=== PATIENT | female | born 1935 | race Caucasian/White ===

== ENCOUNTER → 2018-05-02 12:02 | Outpatient (CLI) | payer MEDICARE, OTHER, SELFPAY ==
[2018-05-02 12:31] LABS: International Normalized Ratio 1.6; Prothrombin Time (Protime)PT. 19.1 SECONDS (11.7-14.9)
--- OUTSIDE RECORDS SUMMARY | 2018-06-18 15:37 | XMS RPT_ITS ---
:1935 Author Organization OHIP Care Team Providers Name Role Phone ZBIGNIEW CALDERON Attending Unavailable KVNG, ZBIGNIEW E Referring Unavailable KOHLI, LARRY L Referring Unavailable KOHLI, LARRY L Referring Unavailable KOHLI, LARRY L Referring Unavailable CORNIELLO, GINGER L ([facility]) Referring Unavailable KOHLI, LARRY L Attending Unavailable KOHLI, LARRY L Referring Unavailable KOHLI, LARRY L Referring Unavailable KOHLI, LARRY L Referring Unavailable KOHLI, LARRY L Referring Unavailable KOHLI, LARRY L Referring Unavailable KOHLI, LARRY L Referring Unavailable KOHLI, LARRY L Referring Unavailable KOHLI, LARRY L Referring Unavailable KOHLI, LARRY L Referring Unavailable KOHLI, LARRY L Referring Unavailable KOHLI, LARRY L Referring Unavailable KVNG, ZBIGNIEW E Attending Unavailable KVNG, ZBIGNIEW E Referring Unavailable KVNG, ZBIGNIEW E Referring Unavailable KOHLI, LARRY L Referring Unavailable KOHLI, LARRY L Attending Unavailable KOHLI, LARRY L Referring Unavailable KOHLI, LARRY L Referring Unavailable KVNG, ZBIGNIEW Attending Unavailable KVNG, ZBIGNIEW Referring Unavailable KOHLI, LARRY L Primary Care Unavailable KVNG, ZBIGNIEW Attending Unavailable KVNG, ZBIGNIEW Referring Unavailable KOHLI, LARRY L Primary Care Unavailable Kohli, Larry Attending Unavailable Kohli, Larry Referring Unavailable PROBLEMS PROBLEMS DATE TYPE CONDITION / CODE ATTENDING STATUS SOURCE 05/03/2018 Unknown I48.91 - Unspecified Kohli, Active [place] atrial fibrillation [facility] / I48.91(ICD-10) Hospital Repository 05/02/2018 Active Other hyperlipidemia NA Active [facility] / E78.49(ICD-10) [facility] Main [place] Repository 05/02/2018 Active Hyperglycemia, NA Active [facility] unspecified / Clinic Main R73.9(ICD-10) [place] Repository 08/22/2017 Active Paroxysmal atrial KVNG, Active [place] fibrillation / [facility] Clinic Other I48.0(ICD-10) [place] Repository 08/22/2017 Admitting Unknown / KVNG, Active [facility] diagnosis UNK(Unknown) [facility] Repository 07/12/2017 Active Mixed hyperlipidemia NA Active [facility] / E78.2(ICD-10) [facility] [place] Rep[facility] 11/09/2016 Active Impaired fasting NA Active [facility] glucose / [facility] Main R73.01(ICD-10) [place] Repository 02/24/2014 Active Unspecified atrial NA Active [place] fibrillation / [facility] Main I48.91(ICD-10) [place] Repository PROCEDURES PROCEDURES No Procedure Records FoundRESULTS RESULTS PROGRESS Observed: 06/08/2018 Status: COMPLETED Source: [place] 5:05 PM [facility] RE[facility] HNO ID: [id number] Author: Larry Kohli Service: (none) Author Type: Physician Type: Progress Notes Filed: 06/08/2018 5:07 PM Note Text: CC Leatha Kern is a 82 year old female who presents to the office for 6 months follow up HPI: Paroxysmal atrial fibrillation, taking antiarryhtmic and beta elizabeth and other medications including Coumadin, tolerating well without concerns, seeing Dr. Calderon Concierge Receptionist regularly Hx of IFG, recently hba1c elevated, has been admitting to eating more carbohydrates and sugar recently with holiday, would like to try diet control, is asymptomatic Hemoglobin A1C Date Value Ref Range Status 05/02/2018 6.5 (H) 4.3 - 5.6 % Final Comment: [place] [employer] Association guidelines indicate that patients with HgbA1c in the range 5.7-6.4% are at increased risk for development of diabetes, and intervention by lifestyle modification may be beneficial. HgbA1c greater or equal to 6.5% is considered diagnostic of diabetes. 08/15/2017 6.4 (H) 4.3 - 5.6 % Final 12/14/2016 6.2 (H) 4.3 - 5.6 % Final Comment: [place] Diabetes Association guidelines indicate that patients with HgbA1c in the range 5.7-6.4% are at increased risk for development of diabetes, and intervention by lifestyle modification may be beneficial. HgbA1c greater or equal to 6.5% is considered diagnostic of diabetes. PAST MEDICAL HISTORY Diagnosis Date - Disorder of bone and cartilage, unspecified 10/25 -1.1 LS, nl hip, no change from 2003 - External hemorrhoids without mention of complication - Family history of malignant neoplasm of gastrointestinal tract family history of colon cancer - Hypercholesterolemia - Internal hemorrhoids without mention of complication - Paroxysmal atrial fibrillation (HCC) Zbigniew Calderon MD. Warfarin. - Unspecified constipation PAST SURGICAL HISTORY Procedure Laterality Date - COLONOSCOP W/ OR W/O [facility] SPEC 2001 Colonoscopy - COLONOSCOP W/ OR W/O [facility] SPEC 04/27/16 Colonoscopy mac - EGD W/O OR W/BRUSH/WASH 04/27/16 EGD mac - PAST SURGICAL HISTORY OF 1985 lumbar laminectomy - REMOVAL OF TONSILS,<12 Y/O - REMV CATARACT EXTRACAP,INSERT LENS Mar 21 AND May 07, 3013 - SIGMOIDOSCOPY FLEX DIAG 08/09/06 - TOTAL ABDOM HYSTERECTOMY 1989 Hysterectomy, CRISTIN Dr. Fermin Conte Current Outpatient Prescriptions: warfarin (COUMADIN) 5 mg tablet Take 7.5 mg Tues and Thurs, 5 mg all other days flecainide (TAMBOCOR) 50 mg tablet Take 0.5 tablets by mouth twice daily. atorvastatin (LIPITOR) 20 mg tablet Take 1 tablet by mouth once daily. zolpidem (AMBIEN) 5 mg tablet Take 1 tablet by mouth daily at bedtime for 30 days. FOR SLEEP metoprolol tartrate, short acting, (LOPRESSOR) 25 mg tablet Take 0.5 tablets by mouth twice daily. nitroglycerin sublingual (NITROQUICK) 0.3 mg SL tablet Dissolve 1 tablet under the tongue every 5 minutes as needed. OTC PRODUCT Vitamin D 1000 unitis daily multivitamins w-minerals/lut(CENTRUM SILVER TAB) Take one(1) tablet daily. ascorbic acid(VITAMIN C 1,000 MG TAB) Take one(1) tablet daily. No current facility-administered medications for this visit. ALLERGIES Allergen Reactions - Iodine [Contrast Dy* Hives Social History Marital status: Spouse name: Henna.PKaylah Years of education: 13 Number of children: 4 Occupational History Occupation Employer Comment retired [employer] Social History Main Topics Smoking status: Never Smoker Smokeless tobacco: Never Used Comment: No smoking in childhood. Spouse non-smoker. Alcohol use: Yes Comment: 1 glass wine every 2 weeks Drug use: No Sexual activity: Yes control/protection: Surgical Comment: HYSTERECTOMY Social History Narrative 4 sons Lives in [place] Retired, family business Oldest son has met veronica TERRY, age 56, 2012 ROS: See HPI PE: BP 120/80 Pulse 60 Temp (Src) 98 (Right Tympanic) Resp 16 Wt 164 lb (74.4kg) Gen: AANDOX3, NAD, non-toxic appearing HEENT: PERRLA, EOMs intact b/l, nares without drainage, pharynx without erythema, exudate, lesions, or drainage. Uvula midline. Neck: No LAD, no thyromegaly, no meningismus. CV: RRR, no murmur Lungs: CTA b/l, no wheezing Skin: No rashes, lesions, or wounds on exposed skin. No edema, normal pulses ASSESSMENT/PLAN: 1. Dyslipidemia - ICD9: 272.4, ICD10: E78.5 (primary diagnosis) - suboptimal control - Continue current medication. - Encouraged following a low fat, low cholesterol diet. - Discussed the benefits of regular aerobic exercise and weight loss. - Check fasting lipid panel and ALT in 6 months. - COMP METABOLIC PANEL - LIPID PANEL BASIC - CBC 2. Chronic atrial fibrillation (HCC) - ICD9: 427.31, ICD10: I48.2 - rx refilled, INR in target range, f/u in office in 1 month as scheduled. - WARFARIN 5 MG TABLET 3. Controlled type 2 diabetes mellitus without complication, without long-term current use of insulin (HCC) - ICD9: 250.00, ICD10: E11.9 newly diagnosed - Encouraged regular aerobic exercise and weight loss - Follow up in 6 months, sooner should any other issues arise. - Discussed diabetic education issues of fdc diabetic complications, hyperglycemic symptoms, diet and importance of exercise with patient. - BP goal of <130/80 - LDL goal of <100 - HGB A1C Larry Kohli DO Return if no improvement. Follow up with Larry Kohli DO. To ER if develops chest pain, shortness of breath, Discussed risks, benefits, alternatives, and potential side effects of medications. Patient/Guardian expressed understanding and agreed with the plan. See patient instructions. Larry Kohli DO [address] [place] [address] PROGRESS Observed: 06/08/2018 Status: COMPLETED Source: [place] 4:25 PM [facility] REPOSITORY HNO ID: [id number] Author: Larry Kohli Service: (none) Author Type: Physician Type: Progress Notes Filed: 06/08/2018 4:46 PM Note Text: Agree with below Larry Kohli DO PROGRESS Observed: 06/08/2018 Status: COMPLETED Source: [place] 4:10 PM [facility] REPOSITORY HNO ID: [id number] Author: Pearl Verduzco RN Service: (none) Author Type: (none) Type: Progress Notes Filed: 06/08/2018 4:12 PM Note Text: patient had inr completed at [facility] patients inr is 2.3 (patients inr range is 2.0-3.0) patient is currently taking 7.5mg Tues,Thurs,Sat and 5mg all other days patients last dose change was on 02/26/18 due to a low normal level of 2.1 (dose at that time was 7.5mg Tues,Thurs and 5mg all there days) patient has had no changes in medication and no missed doses and no change in diet Advised patient to continue on the same dose(s) and that they would only be contacted regarding dosage and follow up instructions after review with provider, if a change is needed. Written instructions given and patient verbalized understanding. Presently scheduled in 5 weeks (07/16/18 - pt requested this date) for follow up INR. CNOV Observed: 06/08/2018 Status: COMPLETED Source: [place] 3:00 PM [facility] REPOSITORY Office Visit (FAMPWS) LEATHA KERN ([id number]) 1935 F Date Time Provider Department 06/08/18 3:00 PM SEUN LARRY Stark FAMPWS During your visit today, we recorded the following information about you: Temperature Pulse Respiration Blood pressure 98 degrees 60/minute 16/minute 120/80 Weight 74.4 kg Larry Kohli, DO 06/08/2018 3:49 PM Signed Transparent lab protein whey powder- from [facility], 100% organic grass fed, <1-[address] grams of sugar Other way for a shake- Protein powder scoop (as above) Chocolate almond milk (SILK brand) PB2 powder (by the peanut butter, in that aisle, dried peanuts) Larry Kohli, DO 06/08/2018 5:07 PM Signed CC Leatha Kern is a 82 year old female who presents to the office for 6 months follow up HPI: Paroxysmal atrial fibrillation, taking antiarryhtmic and beta elizabeth and other medications including Coumadin, tolerating well without concerns, seeing Dr. Calderon Concierge Receptionist regularly Hx of IFG, recently hba1c elevated, has been admitting to eating more carbohydrates and sugar recently with holiday, would like to try diet control, is asymptomatic Hemoglobin A1C Date Value Ref Range Status 05/02/2018 6.5 (H) 4.3 - 5.6 % Final Comment: [place] Diabetes [employer] guidelines indicate that patients with HgbA1c in the range 5.7-6.4% are at increased risk for development of diabetes, and intervention by lifestyle modification may be beneficial. HgbA1c greater or equal to 6.5% is considered diagnostic of diabetes. 08/15/2017 6.4 (H) 4.3 - 5.6 % Final 12/14/2016 6.2 (H) 4.3 - 5.6 % Final Comment: [place] Diabetes [employer] guidelines indicate that patients with HgbA1c in the range 5.7-6.4% are at increased risk for development of diabetes, and intervention by lifestyle modification may be beneficial. HgbA1c greater or equal to 6.5% is considered diagnostic of diabetes. PAST MEDICAL HISTORY Diagnosis Date - Disorder of bone and cartilage, unspecified 10/25 -1.1 LS, nl hip, no change from 2004 - External hemorrhoids without mention of complication - Family history of malignant neoplasm of gastrointestinal tract family history of colon cancer - Hypercholesterolemia - Internal hemorrhoids without mention of complication - Paroxysmal atrial fibrillation (HCC) Zbigniew Calderon MD. Warfarin. - Unspecified constipation PAST SURGICAL HISTORY Procedure Laterality Date - COLONOSCOP W/ OR W/O [facility] SPEC 2001 Colonoscopy - COLONOSCOP W/ OR W/O [facility] SPEC 04/27/16 Colonoscopy mac - EGD W/O OR W/BRUSH/WASH 04/27/16 EGD mac - PAST SURGICAL HISTORY OF 1985 lumbar laminectomy - REMOVAL OF TONSILS,<12 Y/O - REMV CATARACT EXTRACAP,INSERT LENS Mar 21 AND May 07, 3013 - SIGMOIDOSCOPY FLEX DIAG 08/09/06 - TOTAL ABDOM HYSTERECTOMY 1989 Hysterectomy, CRISTIN Dr. Fermin Conet Current Outpatient Prescriptions: warfarin (COUMADIN) 5 mg tablet Take 7.5 mg Tues and Thurs, 5 mg all other days flecainide (TAMBOCOR) 50 mg tablet Take 0.5 tablets by mouth twice daily. atorvastatin (LIPITOR) 20 mg tablet Take 1 tablet by mouth once daily. zolpidem (AMBIEN) 5 mg tablet Take 1 tablet by mouth daily at bedtime for 30 days. FOR SLEEP metoprolol tartrate, short acting, (LOPRESSOR) 25 mg tablet Take 0.5 tablets by mouth twice daily. nitroglycerin sublingual (NITROQUICK) 0.3 mg SL tablet Dissolve 1 tablet under the tongue every 5 minutes as needed. OTC PRODUCT Vitamin D 1000 unitis daily multivitamins w-minerals/lut(CENTRUM SILVER TAB) Take one(1) tablet daily. ascorbic acid(VITAMIN C 1,000 MG TAB) Take one(1) tablet daily. No current facility-administered medications for this visit. ALLERGIES Allergen Reactions - Iodine [Contrast Dy* Hives Social History Marital status: Spouse name: Padma Years of education: 13 Number of children: 4 Occupational History Occupation Employer Comment retired [employer] Social History Main Topics Smoking status: Never Smoker Smokeless tobacco: Never Used Comment: No smoking in childhood. Spouse non-smoker. Alcohol use: Yes Comment: 1 glass wine every 2 weeks Drug use: No Sexual activity: Yes control/protection: Surgical Comment: HYSTERECTOMY Social History Narrative 4 sons Lives in [facility] Retired, family business Oldest son has met veronica TERRY, age 56, 2012 ROS: See HPI PE: BP 120/80 Pulse 60 Temp (Src) 98 (Right Tympanic) Resp 16 Wt 164 lb (74.4kg) Gen: AANDOX3, NAD, non-toxic appearing HEENT: PERRLA, EOMs intact b/l, nares without drainage, pharynx without erythema, exudate, lesions, or drainage. Uvula midline. Neck: No LAD, no thyromegaly, no meningismus. CV: RRR, no murmur Lungs: CTA b/l, no wheezing Skin: No rashes, lesions, or wounds on exposed skin. No edema, normal pulses ASSESSMENT/PLAN: 1. Dyslipidemia - ICD9: 272.4, ICD10: E78.5 (primary diagnosis) - suboptimal control - Continue current medication. - Encouraged following a low fat, low cholesterol diet. - Discussed the benefits of regular aerobic exercise and weight loss. - Check fasting lipid panel and ALT in 6 months. - COMP METABOLIC PANEL - LIPID PANEL BASIC - CBC 2. Chronic atrial fibrillation (HCC) - ICD9: 427.31, ICD10: I48.2 - rx refilled, INR in target range, f/u in office in 1 month as scheduled. - WARFARIN 5 MG TABLET 3. Controlled type 2 diabetes mellitus without complication, without long-term current use of insulin (HCC) - ICD9: 250.00, ICD10: E11.9 newly diagnosed - Encouraged regular aerobic exercise and weight loss - Follow up in 6 months, sooner should any other issues arise. - Discussed diabetic education issues of fdc diabetic complications, hyperglycemic symptoms, diet and importance of exercise with patient. - BP goal of <130/80 - LDL goal of <100 - HGB A1C Larry Kohli DO Return if no improvement. Follow up with Larry Kohli DO. To ER if develops chest pain, shortness of breath, Discussed risks, benefits, alternatives, and potential side effects of medications. Patient/Guardian expressed understanding and agreed with the plan. See patient instructions. Larry Kohli DO [address] [place] [address] Referring Provider: LARRY KOHLI [[id number]] Allergies As of Date: 06/08/2018 Noted Allergy Reaction IODINE (CONTRAST DYE) 01/10/2011 4 - Hives Date Reviewed: 06/08/2018 Reviewed by: Anyi Lewis LPN - Fully Assessed Reason for Visit: Follow Up [171] Cmt: 6 months Primary Visit Diagnosis:Dyslipidemia [E78.5] Other Visit Diagnoses:Chronic atrial fibrillation (HCC) [I48.2] Controlled type 2 diabetes mellitus without complication, without long-term current use of insulin (HCC) [E11.9] Order(s):warfarin (COUMADIN) 5 mg tabletTake 7.5 mg Tues and Thurs, 5 mg all other daysDisp: 120 tabletRfl: 3 HGB A1C [LUCDD9B] Order #: [id number] FUTURE COMP METABOLIC PANEL [SQCMP] Order #: [id number] FUTURE LIPID PANEL BASIC [SQLIPB] Order #: [id number] FUTURE CBC [SQCBC] Order #: [id number] FUTURE INR (POC) [[id number]] Order #: [id number] #:[id number] Prescriptions as of 06/08/2018 Sig: WARFARIN 5 MG TABLET Take 7.5 mg Tues and Thurs, 5* FLECAINIDE 50 MG TABLET Take 0.5 tablets by mouth twi* ATORVASTATIN 20 MG TABLET Take 1 tablet by mouth once d* ZOLPIDEM 5 MG TABLET Take 1 tablet by mouth daily * METOPROLOL TARTRATE 25 MG TAB* Take 0.5 tablets by mouth twi* NITROGLYCERIN 0.3 MG SUBLINGU* Dissolve 1 tablet under the t* OTC PRODUCT Vitamin D 1000 unitis daily CENTRUM SILVER TABLET Take one(1) tablet daily. VITAMIN C 1,000 MG TABLET Take one(1) tablet daily. Problem List As Of Date 06/08/2018 Noted Resolved ADJUSTMENT DISORDER WITH DEPRESSED MOOD [F43.21]INVALID FOR* UNSPECIFIED CONSTIPATION [K59.00] INVALID FOR* INSOMNIA NOS [G47.00] INVALID FOR* Hyperlipemia [E78.5] INVALID FOR*07/12/2017 Atrial fibrillation [I48.91] INVALID FOR*02/24/2014 Atrial fibrillation (HCC) [I48.91] INVALID FOR* FHx: colon cancer [Z80.0] INVALID FOR*04/27/2016 Heme positive stool [R19.5] INVALID FOR*04/27/2016 Hyperlipidemia, mixed [E78.2] INVALID FOR* Overweight (BMI 25.0-29.9) [E66.3] INVALID FOR* Elevated fasting blood sugar [R73.01] INVALID FOR* Impaired fasting glucose [R73.01] INVALID FOR* Other insomnia [G47.09] INVALID FOR* Other instructions from your clinician: Transparent lab protein whey powder- from [facility], 100% organic grass fed, <1-2 grams of sugar Other way for a shake- Protein powder scoop (as above) Chocolate almond milk (SILK brand) PB2 powder (by the peanut butter, in that aisle, dried peanuts) Prescriptions ordered this encounter Disp Refills Start End WARFARIN 5 MG TABLET 120 * 3 06/08/2018 Class: Print RX Sig: Take 7.5 mg Tues and Thurs, 5 mg all other days Medications Discontinued During This Encounter warfarin (COUMADIN) 5 mg tablet 120 * 3 07/18/2017 06/08/2018 Sig: Take 5 mg on Mon/Wed and 7.5 mg all other days or as directed. Patient taking differently: Take 7.5 mg Tues and Thurs, 5 mg all other days Disc: Reason for discontinue is not on file. Encounter Status:Closed by LARRY KOHLI DO on 06/08/18 PROGRESS Observed: 05/09/2018 Status: COMPLETED Source: [place] 1:15 PM [facility] REPOSITORY HNO ID: [id number] Author: Larry Kohli Service: (none) Author Type: Physician Type: Progress Notes Filed: 05/09/2018 2:25 PM Note Text: Agree with below Larry Kohli DO PROGRESS Observed: 05/09/2018 Status: COMPLETED Source: [place] 11:20 AM [facility] REPOSITORY HNO ID: [id number] Author: Neena Juan RN Service: (none) Author Type: (none) Type: Progress Notes Filed: 05/09/2018 11:22 AM Note Text: Patient had INR completed at [facility] Patient's INR is 2.7 Patient is currently taking 7.5mg Tues,Thurs, Sat and 5mg all other days Patient's last dose change was 05/02/18 due to low INR at 1.6 Patient has had no medication and no change in diet. Advised patient to continue on same dose and they would only be contacted with different instructions after provider review. Written instructions were given to patient and patient verbalized understanding. Presently, patient has been scheduled for 06/08/18 for INR follow up per her request due to another appt with PCP that day. PROTHROMBIN TIME W/INR Collected: 05/02/2018 Status: F Source: [place] 8:33 AM [facility] [place] Order Comment: LABSPEC TYPE CODE TESTS RESULT OUT OF RANGE REFERENCE UNITS LAB L300.4150 11.7-14.9 SECONDS High PROTIME 19.1 LAB L300.4200 Normal INR 1.6 Performed By: #### L300.3900 #### [facility] [address] [place], [address] PROTIME Collected: 05/02/2018 Status: F Source: [place] 8:31 AM [facility] REPOSITORY TYPE CODE TESTS RESULT OUT OF REFERENCE UNITS RANGE LAB PSEC 9.7-13.0 sec Test PT sent to [facility]. Result Comment: Account Credited LAB INR 0.9-1.3 Test sent to PT INR [facility]. Result Comment: Account Credited BASIC METABOLIC PANL Collected: 05/02/2018 Status: F Source: [place] 8:31 AM [facility] REPOSITORY TYPE CODE TESTS RESULT OUT OF REFERENCE UNITS RANGE LAB GLU 74-99 mg/dL Glucose High 137 LAB BUN 7-21 mg/dL BUN 14 LAB CRET 0.58-0.96 mg/dL Creatinine 0.79 LAB NA 136-144 mmol/L Sodium 139 LAB K 3.7-5.1 mmol/L Potassium 4.0 LAB CL 97-105 mmol/L Chloride 104 LAB CO2 22-30 mmol/L CO2 29 LAB AGAP mmol/L Anion Gap 6 LAB CA 8.5-10.2 mg/dL Calcium, Total 9.6 LAB GFRAA eGFR- >60 Amer. LAB GFRNAA . eGFR-All Other Races >60 Result Comment: eGFR (Estimated GFR) Units of measure: mL/min/1.73 meters squared eGFR is derived from the reexpressed MDRD Study equation using the following parameters: serum creatinine, age, gender and race. The creatinine assay has been calibrated to be traceable to IDMS. An eGFR <60 mL/min/1.73m2 for >3 months is consistent with chronic kidney disease. Refer to KDOQI guidelines for clinical interpretation. In patients with unstable renal function, e.g. those with acute kidney injury, the eGFR may not accurately reflect actual GFR. LIPID PANEL, BASIC Collected: 05/02/2018 Status: F Source: [place] 8:30 AM [facility] [place] REPOSITORY TYPE CODE TESTS RESULT OUT OF REFERENCE UNITS RANGE LAB CHOL <200 mg/dL Cholesterol 155 Result Comment: <200 mg/dL, Desirable 200-239 mg/dL, Borderline high >239 mg/dL, High LAB TRIGLY <150 mg/dL Triglyceride 67 Result Comment: <150 mg/dL, Normal 150-199 mg/dL, Borderline high 200-499 mg/dL, High >499 mg/dL, Very high LAB HDL >39 mg/dL HDL-Cholesterol 77 Result Comment: 40-59 mg/dL, Acceptable >59 mg/dL, High: Negative risk factor for coronary heart disease <40 mg/dL, Low: Positive risk factor for coronary heart disease LAB LDL <100 mg/dL LDL-Cholesterol 65 Result Comment: <100 mg/dL, Optimal 100-129 mg/dL, Near optimal/above optimal 130-159 mg/dL, Borderline high 160-189 mg/dL, High >189 mg/dL, Very high Secondary prevention optimal LDL Cholesterol levels are recommended to be < 70 mg/dL LAB NONHDL <130 mg/dL Non HDL Cholesterol 78 Result Comment: <130 mg/dL, Optimal 130-159 mg/dL, Near optimal/above optimal 160-189 mg/dL, Borderline high 190-219 mg/dL, High >219 mg/dL, Very high Secondary prevention optimal non HDL Cholesterol levels are recommended to be < 100 mg/dL LAB FT hrs Fasting Time 12 LAB VLDL <30 mg/dL VLDL Cholesterol 13 LAB TCHDL <5.10 TC:HDL Ratio 2.01 LAB LDLHDL <2.54 LDL:HDL Ratio 0.84 Result Comment: Reference: 1. National Cholesterol Education Program ATP III Guideline At-A-Glance Quick Desk Reference: National Heart, Lung, and Blood [place]. National Institutes of Health. 2001: NIH Publication No. 01-3305. 2. An International Atherosclerosis Society position paper: global recommendations for the management of dyslipidemia: executive summary, Atherosclerosis. 2014: 232(2):410-413. Performed By: #### LIPB #### [facility] [employer] [address] [place], [place] [address] HEMOGLOBIN A1C Collected: 05/02/2018 Status: F Source: [place] 8:30 AM [facility] REPOSITORY TYPE CODE TESTS RESULT OUT OF REFERENCE UNITS RANGE LAB HGBA1C 4.3-5.6 % High Hemoglobin A1c 6.5 Result Comment: [place] Diabetes Association guidelines indicate that patients with HgbA1c in the range 5.7-6.4% are at increased risk for development of diabetes, and intervention by lifestyle modification may be beneficial. HgbA1c greater or equal to 6.5% is considered diagnostic of diabetes. LAB HBA0 mg/dL Est. Average Glucose 140 Result Comment: eAG: (Estimated average glucose) is a calculated value from HgbA1c and is district representative of the average blood glucose level in the last 2-3 month period. Performed By: #### HBA1C #### [facility] [employer] [employer] [address] [place], [place] [address] PROGRESS Observed: 04/24/2018 Status: COMPLETED Source: [place] 11:13 AM [facility] REPOSITORY HNO ID: [id number] Author: Zbigniew Calderon Service: (none) Author Type: Physician Type: Progress Notes Filed: 04/25/2018 8:41 AM Note Text: PERTINENT CARDIAC HISTORY PAF HL ILD TINSLEY ADHERENCE TO GUIDELINES TORIN-I or ARB for HF with prior LVEF<40 (NQF 0081) - N/A ASA or Plavix for ASHD (NQF 0067) - N/A Beta elizabeth for ASHD with prior MD or prior LVEF<40 (NQF 0070) - N/A Beta elizabeth for HF with prior LVEF<40 (NQF 0083) - N/A TORIN-I or ARB for ASHD with DM or prior LVEF<40 (NQF 0066) - N/A Statin therapy for ASHD or FHL or DM - met BMI documented and plan if >25 (NQF 0421) - lifestyle recommendation form Tobacco use screening and referral (NQF 0028) - lifestyle recommendation form CLINICAL IMPRESSION/PLAN: Leatha Kern is doing well. She is tolerating low-dose flecainide. I will give her a new prescription for 50 milligrams tablets and have her decrease dose to 25 milligrams twice daily. I've asked her to contact me after one to 2 weeks to let me know how she is doing. At that time we will decide whether to discontinue flecainide and go with just beta elizabeth. She will have basic profile and lipid profile for follow-up of drug therapy. I recommend that she be seen in 8 months or as needed. Written and verbal health teaching given to patient, patient verbalizes understanding and agrees with treatment plan. DIAGNOSIS FOR VISIT: PAF HISTORY OF PRESENT ILLNESS Leatha Kern returns for follow-up of her atrial fibrillation. She reports stable exercise tolerance. She is still going to her spinning class. She's had no chest pain, orthopnea, edema, syncope, TIAs, amaurosis or claudication. She continues taking 1 half tablet flecainide twice daily. She believes that these are 100 milligrams tablets. She's had no breakthrough on this dose. She would like to wean herself off if possible. ALLERGIES: ALLERGIES Allergen Reactions - Iodine [Contrast Dy* Hives CURRENT OUTPATIENT MEDICATIONS: flecainide (TAMBOCOR) 100 mg tablet Take 0.5 tablets by mouth twice daily. atorvastatin (LIPITOR) 20 mg tablet Take 1 tablet by mouth once daily. metoprolol tartrate, short acting, (LOPRESSOR) 25 mg tablet Take 0.5 tablets by mouth twice daily. warfarin (COUMADIN) 5 mg tablet Take 5 mg on Mon/Wed and 7.5 mg all other days or as directed. nitroglycerin sublingual (NITROQUICK) 0.3 mg SL tablet Dissolve 1 tablet under the tongue every 5 minutes as needed. multivitamins w-minerals/lut(CENTRUM SILVER TAB) Take one(1) tablet daily. zolpidem (AMBIEN) 5 mg tablet Take 1 tablet by mouth daily at bedtime for 30 days. FOR SLEEP OTC PRODUCT Vitamin D 1000 unitis daily ascorbic acid(VITAMIN C 1,000 MG TAB) Take one(1) tablet daily. PHYSICAL EXAMINATION: VITAL SIGNS: BP 120/78 Pulse 62 Resp 15 Wt 168 lb (76.2kg) SpO2 99% Chest: Clear to auscultation. Trachea is midline. Air entry is equal. Cardiac: Regular rhythm. S1 and S2 are normal. PMI is nondisplaced. There is a soft systolic ejection murmur. Carotids are brisk without bruits. JVP is less than 10 cm. Abdomen: Soft and nontender. There are no pulsatile masses or bruits. No liver enlargement. Bowel sounds are active. Extremities: No edema. Pulses are intact and symmetrical. Electronically Signed: Zbigniew Calderon MD April 24, 2018 11:13 AM CC: Larry Kohli DO CNOV Observed: 04/24/2018 Status: COMPLETED Source: [place] 11:00 AM [facility] REPOSITORY Office Visit (CAWSTR) LEATHA KERN Henna ([id number]) 1935 F Date Time Provider Department 04/24/18 11:00 AM ZBIGNIEW CALDERON CAWSTR During your visit today, we recorded the following information about you: Pulse Respiration Blood pressure Weight 62/minute 15/minute 120/78 76.2 kg Zbigniew Calderon MD 04/25/2018 8:41 AM Signed PERTINENT CARDIAC HISTORY PAF HL ILD TINSLEY ADHERENCE TO GUIDELINES TORIN-I or ARB for HF with prior LVEF<40 (NQF 0081) - N/A ASA or Plavix for ASHD (NQF 0067) - N/A Beta elizabeth for ASHD with prior MD or prior LVEF<40 (NQF 0070) - N/A Beta elizabeth for HF with prior LVEF<40 (NQF 0083) - N/A TORIN-I or ARB for ASHD with DM or prior LVEF<40 (NQF 0066) - N/A Statin therapy for ASHD or FHL or DM - met BMI documented and plan if >25 (NQF 0421) - lifestyle recommendation form Tobacco use screening and referral (NQF 0028) - lifestyle recommendation form CLINICAL IMPRESSION/PLAN: Leatha Kern is doing well. She is tolerating low-dose flecainide. I will give her a new prescription for 50 milligrams tablets and have her decrease dose to 25 milligrams twice daily. I've asked her to contact me after one to 2 weeks to let me know how she is doing. At that time we will decide whether to discontinue flecainide and go with just beta elizabeth. She will have basic profile and lipid profile for follow-up of drug therapy. I recommend that she be seen in 8 months or as needed. Written and verbal health teaching given to patient, patient verbalizes understanding and agrees with treatment plan. DIAGNOSIS FOR VISIT: PAF HISTORY OF PRESENT ILLNESS Leatha Kern returns for follow-up of her atrial fibrillation. She reports stable exercise tolerance. She is still going to her spinning class. She's had no chest pain, orthopnea, edema, syncope, TIAs, amaurosis or claudication. She continues taking 1 half tablet flecainide twice daily. She believes that these are 100 milligrams tablets. She's had no breakthrough on this dose. She would like to wean herself off if possible. ALLERGIES: ALLERGIES Allergen Reactions - Iodine [Contrast Dy* Hives CURRENT OUTPATIENT MEDICATIONS: flecainide (TAMBOCOR) 100 mg tablet Take 0.5 tablets by mouth twice daily. atorvastatin (LIPITOR) 20 mg tablet Take 1 tablet by mouth once daily. metoprolol tartrate, short acting, (LOPRESSOR) 25 mg tablet Take 0.5 tablets by mouth twice daily. warfarin (COUMADIN) 5 mg tablet Take 5 mg on Mon/Wed and 7.5 mg all other days or as directed. nitroglycerin sublingual (NITROQUICK) 0.3 mg SL tablet Dissolve 1 tablet under the tongue every 5 minutes as needed. multivitamins w-minerals/lut(CENTRUM SILVER TAB) Take one(1) tablet daily. zolpidem (AMBIEN) 5 mg tablet Take 1 tablet by mouth daily at bedtime for 30 days. FOR SLEEP OTC PRODUCT Vitamin D 1000 unitis daily ascorbic acid(VITAMIN C 1,000 MG TAB) Take one(1) tablet daily. PHYSICAL EXAMINATION: VITAL SIGNS: BP 120/78 Pulse 62 Resp 15 Wt 168 lb (76.2kg) SpO2 99% Chest: Clear to auscultation. Trachea is midline. Air entry is equal. Cardiac: Regular rhythm. S1 and S2 are normal. PMI is nondisplaced. There is a soft systolic ejection murmur. Carotids are brisk without bruits. JVP is less than 10 cm. Abdomen: Soft and nontender. There are no pulsatile masses or bruits. No liver enlargement. Bowel sounds are active. Extremities: No edema. Pulses are intact and symmetrical. Electronically Signed: Zbigniew Calderon MD April 24, 2018 11:13 AM CC: DO Zbigniew Lorenzo MD 04/24/2018 11:14 AM Signed LIFESTYLE CHANGE A healthy lifestyle is the most important component of your overall treatment plan. 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 EAT A WHOLE FOOD, PLANT BASED DIET The nutrition your body gets is more important than the medicine you take. What matters most is the overall way you eat. We encourage you to minimize the use of animal products (which include dairy and all meats except fatty fish) and use whole, unprocessed plant foods to provide your protein, vitamins and other nutrients. We have a lot of information to share with you on this topic. This is not a diet. It is a way of life that you will keep with you. EXERCISE REGULARLY It is not important to spend hours in the gym, lifting weights and perspiring heavily. A total of 2-3 hours per week of aerobic (causing you to be moderately short of breath) exercise is sufficient to improve your health. Talk to us before you begin a new exercise program, if you have heart disease or experience shortness of breath or chest pain. REDUCE STRESS Chronic emotional and physical stress leads to disease. Ways of reducing stress include meditation, visualization, prayer, yoga and other forms of relaxation therapy. Consistency is the blackmon. Find a technique that works for you and do it every day. CULTIVATE RELATIONSHIPS Loneliness and isolation have a major negative impact on health. Seek out others who can love, care for and nurture you. Avoid hurtful relationships. MAINTAIN IDEAL BODY WEIGHT The best way to do this is to do all the things above. Our bodies naturally find the right weight if we keep moving and feed ourselves the right food. If your BMI is greater than 25, we strongly recommend a referral to a weight management program. Please speak to us or your family physician about available programs. AVOID NICOTINE IN ALL FORMS This includes all tobacco products, whether chewed, smoked, vaped, or rubbed on the skin. Smoking cessation programs, which can make use of tobacco substitutes, medications to suppress cravings and behavior management, are available. Please contact your family physician about programs in your area. Referring Provider: ZBIGNIEW CALDERON [[id number]] Allergies As of Date: 04/24/2018 Noted Allergy Reaction IODINE (CONTRAST DYE) 01/10/2011 4 - Hives Date Reviewed: 04/24/2018 Reviewed by: Blaire Call LPN - Fully Assessed Reason for Visit: Established Patient [175] Cmt: 8 month follow up PAF Primary Visit Diagnosis:PAF (paroxysmal atrial fibrillation) (HCC) [I48.0] Other Visit Diagnoses:Other hyperlipidemia [E78.49] Hyperglycemia [R73.9] Order(s):flecainide (TAMBOCOR) 100 mg tabletTake 0.5 tablets by mouth twice daily.Disp: Rfl: BASIC METABOLIC PNL [SQBMP] Order #: [id number] FUTURE LIPID PANEL BASIC [SQLIPB] Order #: [id number] FUTURE HGB A1C [ECHID8N] Order #: [id number] FUTURE Prescriptions as of 04/24/2018 Sig: FLECAINIDE 100 MG TABLET Take 0.5 tablets by mouth twi* ATORVASTATIN 20 MG TABLET Take 1 tablet by mouth once d* METOPROLOL TARTRATE 25 MG TAB* Take 0.5 tablets by mouth twi* WARFARIN 5 MG TABLET Take 5 mg on Mon/Wed and 7.5 * NITROGLYCERIN 0.3 MG SUBLINGU* Dissolve 1 tablet under the t* CENTRUM SILVER TABLET Take one(1) tablet daily. ZOLPIDEM 5 MG TABLET Take 1 tablet by mouth daily * OTC PRODUCT Vitamin D 1000 unitis daily VITAMIN C 1,000 MG TABLET Take one(1) tablet daily. Problem List As Of Date 04/24/2018 Noted Resolved ADJUSTMENT DISORDER WITH DEPRESSED MOOD [F43.21]INVALID FOR* UNSPECIFIED CONSTIPATION [K59.00] INVALID FOR* INSOMNIA NOS [G47.00] INVALID FOR* Hyperlipemia [E78.5] INVALID FOR*07/12/2017 Atrial fibrillation [I48.91] INVALID FOR*02/24/2014 Atrial fibrillation (HCC) [I48.91] INVALID FOR* FHx: colon cancer [Z80.0] INVALID FOR*04/27/2016 Heme positive stool [R19.5] INVALID FOR*04/27/2016 Hyperlipidemia, mixed [E78.2] INVALID FOR* Overweight (BMI 25.0-29.9) [E66.3] INVALID FOR* Elevated fasting blood sugar [R73.01] INVALID FOR* Impaired fasting glucose [R73.01] INVALID FOR* Other insomnia [G47.09] INVALID FOR* Other instructions from your clinician: LIFESTYLE CHANGE A healthy lifestyle is the most important component of your overall treatment plan. 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 EAT A WHOLE FOOD, PLANT BASED DIET The nutrition your body gets is more important than the medicine you take. What matters most is the overall way you eat. We encourage you to minimize the use of animal products (which include dairy and all meats except fatty fish) and use whole, unprocessed plant foods to provide your protein, vitamins and other nutrients. We have a lot of information to share with you on this topic. This is not a diet. It is a way of life that you will keep with you. EXERCISE REGULARLY It is not important to spend hours in the gym, lifting weights and perspiring heavily. A total of 2-3 hours per week of aerobic (causing you to be moderately short of breath) exercise is sufficient to improve your health. Talk to us before you begin a new exercise program, if you have heart disease or experience shortness of breath or chest pain. REDUCE STRESS Chronic emotional and physical stress leads to disease. Ways of reducing stress include meditation, visualization, prayer, yoga and other forms of relaxation therapy. Consistency is the blackmon. Find a technique that works for you and do it every day. CULTIVATE RELATIONSHIPS Loneliness and isolation have a major negative impact on health. Seek out others who can love, care for and nurture you. Avoid hurtful relationships. MAINTAIN IDEAL BODY WEIGHT The best way to do this is to do all the things above. Our bodies naturally find the right weight if we keep moving and feed ourselves the right food. If your BMI is greater than 25, we strongly recommend a referral to a weight management program. Please speak to us or your family physician about available programs. AVOID NICOTINE IN ALL FORMS This includes all tobacco products, whether chewed, smoked, vaped, or rubbed on the skin. Smoking cessation programs, which can make use of tobacco substitutes, medications to suppress cravings and behavior management, are available. Please contact your family physician about programs in your area. Prescriptions ordered this encounter Disp Refills Start End FLECAINIDE 100 MG TABLET 04/24/2018 Class: Med Update Route: ORAL Sig: Take 0.5 tablets by mouth twice daily. Medications Discontinued During This Encounter flecainide (TAMBOCOR) 100 mg tablet 08/22/2017 04/24/2018 Class: Med Update Sig: Take 25 mg twice a day Disc: Reason for discontinue is not on file. Encounter Status:Closed by ZBIGNIEW CALDERON MD on 04/25/18 PROGRESS Observed: 04/06/2018 Status: COMPLETED Source: [place] 11:28 AM [facility] REPOSITORY O ID: [id number] Author: Geo Campbell LPN Service: (none) Author Type: (none) Type: Progress Notes Filed: 04/06/2018 11:29 AM Note Text: 82 year old female here for INACTIVATED INFLUENZA VACCINE. [id number] Season Patient is identified by name and date of : Yes [] CONTRAINDICATIONS color enhanced section Age less than 6 months? No Allergy to eggs, chicken, chicken feathers, or chicken dander? No Allergy to thimerosal (a preservative) or formaldehyde, gelatin? No History of severe reaction to any vaccine component or a previous dose of influenza vaccination? No History of Guillain-Hastings Syndrome within 6 weeks after a previous influenza vaccine? No Patient is not moderately or severely ill? No Current temperature greater or equal to 100.4F? No History of Bone Marrow Transplant prior 6 months or solid organ transplant in the past 3 months ? No History of fainting after a prior injection or medical procedure? No- ? If patient has fainted in the past, the CDC recommends sitting or lying down for 15 minutes after the vaccination. [] VERIFICATION color enhanced section Was the answer Yes for any of the above contraindications? No contraindications present. Acceptable to proceed with vaccine. Patient/guardian agrees the above answers are true to the best of their knowledge? Yes Flu vaccine information sheet given? Yes See immunization activity in [facility] for details of immunizations adminstered today. Patient age: [age] year old For The 6004-4113 Flu Season 6-35 months old: Fluzone 0.25 ml - IM (Preservative Free) 3 years of age: Fluzone 0.5 ml - IM (Preservative Free) 3 years and older: Fluzone 0.5 ml- IM-(with Preservatives) 65+ years old: 2-49 years old Fluzone High-Dose 0.5 ml - IM (Preservative Free) FLUMIST- intranasal REMEMBER: If patient is less than 9 years of age and this is the first vaccine of Influenza to be received in any flu season, they should receive a second dose in one months time. CNNURSE Observed: 04/06/2018 Status: COMPLETED Source: [place] 11:20 AM [facility] REPOSITORY Nurse Visit (FAMPWS) LEATHA KERN ([id number]) 1935 F Date Time Provider Department 04/06/18 11:20 AM [facility] your visit today, we recorded the following information about you: Geo Campbell LPN 04/06/2018 11:29 AM Signed 82 year old female here for INACTIVATED INFLUENZA VACCINE. Season Patient is identified by name and date of : Yes [] CONTRAINDICATIONS color enhanced section Age less than 6 months? No Allergy to eggs, chicken, chicken feathers, or chicken dander? No Allergy to thimerosal (a preservative) or formaldehyde, gelatin? No History of severe reaction to any vaccine component or a previous dose of influenza vaccination? No History of Guillain-Hastings Syndrome within 6 weeks after a previous influenza vaccine? No Patient is not moderately or severely ill? No Current temperature greater or equal to 100.4F? No History of Bone Marrow Transplant prior 6 months or solid organ transplant in the past 3 months ? No History of fainting after a prior injection or medical procedure? No- ? If patient has fainted in the past, the CDC recommends sitting or lying down for 15 minutes after the vaccination. [] VERIFICATION color enhanced section Was the answer Yes for any of the above contraindications? No contraindications present. Acceptable to proceed with vaccine. Patient/guardian agrees the above answers are true to the best of their knowledge? Yes Flu vaccine information sheet given? Yes See immunization activity in [facility] for details of immunizations adminstered today. Patient age: [age] year old For The 9449-1099 Flu Season 6-35 months old: Fluzone 0.25 ml - IM (Preservative Free) 3 years of age: Fluzone 0.5 ml - IM (Preservative Free) 3 years and older: Fluzone 0.5 ml- IM-(with Preservatives) 65+ years old: 2-49 years old Fluzone High-Dose 0.5 ml - IM (Preservative Free) FLUMIST- intranasal REMEMBER: If patient is less than 9 years of age and this is the first vaccine of Influenza to be received in any flu season, they should receive a second dose in one months time. Referring Provider: SELF [200] Allergies As of Date: 04/06/2018 Noted Allergy Reaction IODINE (CONTRAST DYE) 01/10/2011 4 - Hives Date Reviewed: 10/23/2017 Reviewed by: Pearl Verduzco RN - Fully Assessed Reason for Visit: Imm/Inj [58] Cmt: Flu Vaccine Primary Visit Diagnosis:Need for vaccination [Z23] Order(s):INFLUENZA SEASONAL HIGH DOSE AGE 65+ [[id number]] Order #: [id number] Prescriptions as of 04/06/2018 Sig: ATORVASTATIN 20 MG TABLET Take 1 tablet by mouth once d* ZOLPIDEM 5 MG TABLET Take 1 tablet by mouth daily * METOPROLOL TARTRATE 25 MG TAB* Take 0.5 tablets by mouth twi* FLECAINIDE 100 MG TABLET Take 25 mg twice a day WARFARIN 5 MG TABLET Take 5 mg on Mon/Wed and 7.5 * NITROGLYCERIN 0.3 MG SUBLINGU* Dissolve 1 tablet under the t* OTC PRODUCT Vitamin D 1000 unitis daily CENTRUM SILVER TABLET Take one(1) tablet daily. VITAMIN C 1,000 MG TABLET Take one(1) tablet daily. Problem List As Of Date 04/06/2018 Noted Resolved ADJUSTMENT DISORDER WITH DEPRESSED MOOD [F43.21]INVALID FOR* UNSPECIFIED CONSTIPATION [K59.00] INVALID FOR* INSOMNIA NOS [G47.00] INVALID FOR* Hyperlipemia [E78.5] INVALID FOR*07/12/2017 Atrial fibrillation [I48.91] INVALID FOR*02/24/2014 Atrial fibrillation (HCC) [I48.91] INVALID FOR* FHx: colon cancer [Z80.0] INVALID FOR*04/27/2016 Heme positive stool [R19.5] INVALID FOR*04/27/2016 Hyperlipidemia, mixed [E78.2] INVALID FOR* Overweight (BMI 25.0-29.9) [E66.3] INVALID FOR* Elevated fasting blood sugar [R73.01] INVALID FOR* Impaired fasting glucose [R73.01] INVALID FOR* Other insomnia [G47.09] INVALID FOR* Encounter Status:Closed by GEO CAMPBELL LPN on 04/06/18 PROGRESS Observed: 04/02/2018 Status: COMPLETED Source: [place] 4:36 PM [facility] REPOSITORY HNO ID: [id number] Author: Larry Kohli Service: (none) Author Type: Physician Type: Progress Notes Filed: 04/02/2018 4:38 PM Note Text: Agree with below Larry Kohli DO PROGRESS Observed: 04/02/2018 Status: COMPLETED Source: [place] 3:27 PM [facility] REPOSITORY HNO ID: [id number] Author: Pearl Verduzco RN Service: (none) Author Type: (none) Type: Progress Notes Filed: 04/02/2018 3:28 PM Note Text: patient had inr completed at [facility] patients inr is 2.5 (patients inr range is 2.0-3.0) patient is currently taking 7.5mg Tues,Thurs, and 5mg all other days patients last dose change was on 01/01/18 due to a high level of 3.4 (dose at that time was 5mg Mon,Wed,Fri and 7.5mg all other days) patient has had no changes in medication and no missed doses and no change in diet Advised patient to continue on the same dose(s) and that they would only be contacted regarding dosage and follow up instructions after review with provider, if a change is needed. Written instructions given and patient verbalized understanding. Presently scheduled in 4 weeks (04/30/18) for follow up INR. PROGRESS Observed: 02/26/2018 Status: COMPLETED Source: [place] 4:46 PM [facility] REPOSITORY HNO ID: [id number] Author: Larry Kohli Service: (none) Author Type: Physician Type: Progress Notes Filed: 02/26/2018 4:54 PM Note Text: Agree with below Larry Kohli DO PROGRESS Observed: 02/26/2018 Status: COMPLETED Source: [place] 3:35 PM [facility] REPOSITORY HNO ID: [id number] Author: Pearl Verduzco RN Service: (none) Author Type: (none) Type: Progress Notes Filed: 02/26/2018 3:37 PM Note Text: patient had inr completed at [facility] patients inr is 2.1 (patients inr range is 2.0-3.0) patient is currently taking 7.5mg Tues,Thurs and 5mg all other days patients last dose change was on 01/01/18 due to a high level of 3.4 (dose at that time was 5mg Mon,Wed,Fri and 7.5 mg all other days) patient has had no changes in medication and no missed doses and no change in diet Advised patient to continue on the same dose(s) and that they would only be contacted regarding dosage and follow up instructions after review with provider, if a change is needed. Written instructions given and patient verbalized understanding. Presently scheduled in 4 weeks (03/26/18) for follow up INR. PROGRESS Observed: 01/24/2018 Status: COMPLETED Source: [place] 7:43 PM [facility] REPOSITORY HNO ID: [id number] Author: Larry Kohli Service: (none) Author Type: Physician Type: Progress Notes Filed: 01/25/2018 3:03 PM Note Text: Agree with below Larry Kohli DO PROGRESS Observed: 01/24/2018 Status: COMPLETED Source: [place] 3:35 PM [facility] REPOSITORY HNO ID: [id number] Author: Pearl Verduzco RN Service: (none) Author Type: (none) Type: Progress Notes Filed: 01/24/2018 3:36 PM Note Text: patient had inr completed at [facility] patients inr is 2.2 (patients inr range is 2.0-3.0) patient is currently taking 7.5mg Tues,Thurs and 5mg all other days patients last dose change was on 01/01/18 due to a high level of 3.4 (dose at that time was 5mg Mon,Wed,Fri and 7.5mg all other days) patient has had no changes in medication and no missed doses and no change in diet Advised patient to continue on the same dose(s) and that they would only be contacted regarding dosage and follow up instructions after review with provider, if a change is needed. Written instructions given and patient verbalized understanding. Presently scheduled in 4 weeks (02/26/18) for follow up INR. PROGRESS Observed: 01/09/2018 Status: COMPLETED Source: [place] 4:15 PM [facility] REPOSITORY HNO ID: [id number] Author: Larry Kohli Service: (none) Author Type: Physician Type: Progress Notes Filed: 01/09/2018 4:38 PM Note Text: Agree with below Larry Kohli DO PROGRESS Observed: 01/09/2018 Status: COMPLETED Source: [place] 4:08 PM [facility] REPOSITORY HNO ID: [id number] Author: Pearl Verduzco RN Service: (none) Author Type: (none) Type: Progress Notes Filed: 01/09/2018 4:09 PM Note Text: patient had inr completed at [facility] patients inr is 2.5 (patients inr range is 2.0-3.0) patient is currently taking 7.5mg Tues,Thurs and 5mg all other days patients last dose change was on 01/01/18 due to a high level of 3.4 (dose at that time was 5mg Mon,Wed,Fri and 7.5mg all other days) patient has had no changes in medication except for coumadin and no missed doses and no change in diet Advised patient to continue on the same dose(s) and that they would only be contacted regarding dosage and follow up instructions after review with provider, if a change is needed. Written instructions given and patient verbalized understanding. Presently scheduled in 2 weeks (01/24/18) for follow up INR. PROGRESS Observed: 01/02/2018 Status: COMPLETED Source: [place] 10:28 AM [facility] REPOSITORY HNO ID: [id number] Author: Megan Connolly RN Service: (none) Author Type: (none) Type: Progress Notes Filed: 01/02/2018 10:28 AM Note Text: This note was created using SocialPicksriter. Subjective Leatha Kern is a 82 year old female. Review of Systems Objective There were no vitals taken for this visit. Physical Exam Assessment and Plan PROGRESS Observed: 01/01/2018 Status: COMPLETED Source: [place] 4:46 PM [facility] REPOSITORY HNO ID: [id number] Author: Larry Kohli Service: (none) Author Type: Physician Type: Progress Notes Filed: 01/02/2018 6:45 AM Note Text: Decrease dose to 5 mg M,W,F,Sat,Sun and 7.5 mg on , Th, recheck INR 1 week Larry Kohli DO PROGRESS Observed: 01/01/2018 Status: COMPLETED Source: [place] 3:31 PM [facility] REPOSITORY HNO ID: [id number] Author: Pearl Verduzco RN Service: (none) Author Type: (none) Type: Progress Notes Filed: 01/01/2018 3:41 PM Note Text: patient had inr completed at [facility] patients inr is 3.4 (patients inr range is 2.0-3.0) patient is currently taking 5mg Mon,Wed,Fri and 7.5mg all other days patients last dose change was on 12/25/17 due to a high level of 3.2 (dose at that time was 5mg Mon,Wed and 7.5mg all other days) patient has had no changes in medication except for coumadin and no missed doses and no change in diet Advised patient that they would be contacted regarding medication dose and when to follow up after information is reviewed by provider. After provider review please contact the patient with information and schedule follow up appointment with coumadin clinic. FYI- patient has been scheduled for a 1 week follow up inr on 01/09/18 . PROGRESS Observed: 12/25/2017 Status: COMPLETED Source: [place] 5:03 PM [facility] [place] REPOSITORY HNO ID: [id number] Author: Anyi Lewis LPN Service: (none) Author Type: (none) Type: Progress Notes Filed: 12/25/2017 5:15 PM Note Text: Pt. informed. Anyi Lewis LPN PROGRESS Observed: 12/25/2017 Status: COMPLETED Source: [place] 4:52 PM [facility] REPOSITORY HNO ID: [id number] Author: Ginger Taylor Service: (none) Author Type: Nurse Practitioner Type: Progress Notes Filed: 12/25/2017 5:15 PM Note Text: Decrease coumadin to 5mg M-W- and 7.5 the rest of the days. Repeat in 1 week. Ginger Taylor APRN.CNP PROGRESS Observed: 12/25/2017 Status: COMPLETED Source: [place] 4:15 PM [facility] REPOSITORY HNO ID: [id number] Author: Pearl Verduzco RN Service: (none) Author Type: (none) Type: Progress Notes Filed: 12/25/2017 4:16 PM Note Text: patient had inr completed at [facility] patients inr is 3.2 (patients inr range is 2.0-3.0) patient is currently taking 5mg Mon,Mon and 7.5mg all other days patients last dose change was on 08/24/16 due to a high level of 3.5 (dose at that time was 7.5mg daily) patient has had no changes in medication and no missed doses and no change in diet Advised patient that they would be contacted regarding medication dose and when to follow up after information is reviewed by provider. After provider review please contact the patient with information and schedule follow up appointment with coumadin clinic. FYI - patient has been scheduled for a 1 week follow up inr on 01/01/18 PROGRESS Observed: 12/06/2017 Status: COMPLETED Source: [place] 4:11 PM [facility] RE[facility] HNO ID: [id number] Author: Jerica Kali ROONEY Service: (none) Author Type: (none) Type: Progress Notes Filed: 12/06/2017 4:12 PM Note Text: Detailed message left on pt's voicemail. PROGRESS Observed: 12/06/2017 Status: COMPLETED Source: [place] 4:06 PM [facility] REPOSITORY HNO ID: [id number] Author: Ginger Taylor Service: (none) Author Type: Nurse Practitioner Type: Progress Notes Filed: 12/06/2017 4:12 PM Note Text: Continue current and recheck in 1 week. Ginger Taylor APRN.KANCHAN PROGRESS Observed: 12/06/2017 Status: COMPLETED Source: [place] 3:29 PM [facility] REPOSITORY HNO ID: [id number] Author: Neena Juan RN Service: (none) Author Type: (none) Type: Progress Notes Filed: 12/06/2017 3:32 PM Note Text: Patient had INR completed at [facility] Patient's INR is 3.1 Patient is currently taking 5mg Mon,Wed, and 7.5mg all other days Patient's last dose change was 08/24/16 due to high INR at 3.5 Patient has had no medication and no change in diet. States she was on vacation and could have possibly ate a little less greens than usual but no drastic change. Advised patient that they would be contacted regarding medication dose and follow-up once reviewed by provider. After provider review, please contact patient with information and schedule follow-up appointment with coumadin clinic. OK to leave message on patient's voicemail. PROGRESS Observed: 10/23/2017 Status: COMPLETED Source: [place] 4:36 PM [facility] [place] REPOSITORY HNO ID: [id number] Author: Larry Kohli Service: (none) Author Type: Physician Type: Progress Notes Filed: 10/23/2017 4:56 PM Note Text: Agree with below Larry Kohli DO PROGRESS Observed: 10/23/2017 Status: COMPLETED Source: [place] 3:29 PM [facility] REPOSITORY HNO ID: [id number] Author: Pearl Verduzco RN Service: (none) Author Type: (none) Type: Progress Notes Filed: 10/23/2017 3:30 PM Note Text: patient had inr completed at [facility] patients inr is 2.8 (patients inr range is 2.0-3.0) patient is currently taking 5mg Mon,Wed and 7.5mg all other days patients last dose change was on 08/24/16 due to a high level of 3.5 (dose at that time was 7.5mg daily) patient has had no changes in medication and no missed doses and no change in diet Advised patient to continue on the same dose(s) and that they would only be contacted regarding dosage and follow up instructions after review with provider, if a change is needed. Written instructions given and patient verbalized understanding. Presently scheduled in 5 weeks (11/29/17 - due to pt will be out of town in 4 weeks) for follow up INR. PROGRESS Observed: 09/25/2017 Status: COMPLETED Source: [place] 5:01 PM [facility] REPOSITORY HNO ID: [id number] Author: Larry Kohli Service: (none) Author Type: Physician Type: Progress Notes Filed: 09/25/2017 5:06 PM Note Text: agree with below Larry Kohli DO PROGRESS Observed: 09/25/2017 Status: COMPLETED Source: [place] 3:37 PM [facility] REPOSITORY HNO ID: [id number] Author: Pearl Verduzco RN Service: (none) Author Type: (none) Type: Progress Notes Filed: 09/25/2017 3:38 PM Note Text: patient had inr completed at [facility] patients inr is 2.9 (patients inr range is 2.0-3.0) patient is currently taking 5mg Mon,Wed and 7.5mg all other days patients last dose change was on 08/24/16 due to a high level of 3.5 (dose at that time was 7.5mg daily) patient has had no changes in medication and no missed doses and no change in diet Advised patient to continue on the same dose(s) and that they would only be contacted regarding dosage and follow up instructions after review with provider, if a change is needed. Written instructions given and patient verbalized understanding. Presently scheduled in 4 weeks (10/23/17) for follow up INR. PROGRESS Observed: 08/28/2017 Status: COMPLETED Source: [place] 3:55 PM [facility] REPOSITORY HNO ID: [id number] Author: Larry Kohli Service: (none) Author Type: Physician Type: Progress Notes Filed: 08/28/2017 4:32 PM Note Text: Agree with below Larry Kohli, PROGRESS Observed: 08/28/2017 Status: COMPLETED Source: [place] 3:26 PM [facility] REPOSITORY HNO ID: [id number] Author: Pearl Verduzco RN Service: (none) Author Type: (none) Type: Progress Notes Filed: 08/28/2017 3:28 PM Note Text: patient had inr completed at [facility] patients inr is 2.0 (patients inr range is 2.0-3.0) patient is currently taking 5mg Mon,Wed, and 7.5mg all other days patients last dose change was on 08/24/16 due to a high level of 3.5 (dose at that time was 7.5mg daily) patient has had no changes in medication and no missed doses and no change in diet Advised patient to continue on the same dose(s) and that they would only be contacted regarding dosage and follow up instructions after review with provider, if a change is needed. Written instructions given and patient verbalized understanding. Presently scheduled in 4 weeks (09/25/17) for follow up INR. PROGRESS Observed: 08/22/2017 Status: COMPLETED Source: [place] 10:19 AM [facility] REPOSITORY HNO ID: [id number] Author: Zbigniew Calderon Service: (none) Author Type: Physician Type: Progress Notes Filed: 08/23/2017 5:05 PM Note Text: PERTINENT CARDIAC HISTORY PAF HL ILD TINSLEY ADHERENCE TO GUIDELINES TORIN-I or ARB for HF with prior LVEF<40 (NQF 0081) - N/A ASA or Plavix for ASHD (NQF 0067) - N/A Beta elizabeth for ASHD with prior MD or prior LVEF<40 (NQF 0070) - N/A Beta elizabeth for HF with prior LVEF<40 (NQF 0083) - N/A TORIN-I or ARB for ASHD with DM or prior LVEF<40 (NQF 0066) - N/A Statin therapy for ASHD or FHL or DM - met BMI documented and plan if >25 (NQF 0421) - lifestyle recommendation form Tobacco use screening and referral (NQF 0028) - lifestyle recommendation form Recommendation for whole food, plant based diet - lifestyle recommendation form CLINICAL IMPRESSION/PLAN: Leatha Kern is doing well. She's been advised to continue her current medication. Atrial fibrillation is well controlled on the current dose. She's been advised that she may decrease her flecainide to 25 milligrams twice daily. If she has breakthrough, she's been advised to contact me. I will see her in 8 months or as needed. Written and verbal health teaching given to patient, patient verbalizes understanding and agrees with treatment plan. DIAGNOSIS FOR VISIT: PAF HISTORY OF PRESENT ILLNESS Leatha Kern returns for follow-up of her atrial fibrillation. She has been under less stress. She's been walking and working out at the [employer] doing spinning class. She's had no chest discomfort. She denies orthopnea, edema, syncope, palpitations, TIAs, amaurosis and claudication ALLERGIES: ALLERGIES Allergen Reactions - Iodine [Contrast Dy* Hives CURRENT OUTPATIENT MEDICATIONS: flecainide (TAMBOCOR) 100 mg tablet Take 25 mg twice a day warfarin (COUMADIN) 5 mg tablet Take 5 mg on Mon/Wed and 7.5 mg all other days or as directed. atorvastatin (LIPITOR) 20 mg tablet Take 1 tablet by mouth once daily. metoprolol tartrate, short acting, (LOPRESSOR) 25 mg tablet Take 0.5 tablets by mouth twice daily. nitroglycerin sublingual (NITROQUICK) 0.3 mg SL tablet Dissolve 1 tablet under the tongue every 5 minutes as needed. OTC PRODUCT Vitamin D 1000 unitis daily multivitamins w-minerals/lut(CENTRUM SILVER TAB) Take one(1) tablet daily. ascorbic acid(VITAMIN C 1,000 MG TAB) Take one(1) tablet daily. PHYSICAL EXAMINATION: VITAL SIGNS: BP 116/62 Pulse 55 Ht 5' 6 (1.68m) Wt 168 lb 11.2 oz (76.5kg) BMI 27.24 kg/(m2). Chest: Clear to percussion and auscultation. Trachea is midline. Air entry is equal. Cardiac: Regular rhythm. S1 and S2 are normal. PMI is nondisplaced. There is a soft systolic ejection murmur. Carotids are brisk without bruits. JVP is less than 10 cm. Abdomen: Soft and nontender. There are no pulsatile masses or bruits. No liver enlargement. Bowel sounds are active. Extremities: Trace edema. Pulses are intact and symmetrical. EKG shows sinus bradycardia with first degree AV block. There is no significant change since 08/31/16. Recent labs were reviewed. Renal function is normal. LDL was 62. INR is followed in primary care. Electronically Signed: Zbigniew Calderon MD August 22, 2017 10:19 AM CC: DO SHAINA LorenzoOV Observed: 08/22/2017 Status: COMPLETED Source: [place] 9:30 AM [facility] OTHER [place] REPOSITORY Office Visit (AGCARDWST) LEATHA KERN ([id number]) 1935 F Date Time Provider Department 08/22/17 9:30 AM ZBIGNIEW CALDERON AGCARDWST During your visit today, we recorded the following information about you: Pulse Blood pressure Weight Height 55/minute 116/62 76.5 kg 1.676 m Zbigniew Calderon MD 08/23/2017 5:05 PM Signed PERTINENT CARDIAC HISTORY PAF HL ILD TINSLEY ADHERENCE TO GUIDELINES TORIN-I or ARB for HF with prior LVEFANDlt;40 (NQF 0081) - N/A ASA or Plavix for ASHD (NQF 0067) - N/A Beta elizabeth for ASHD with prior MD or prior LVEFANDlt;40 (NQF 0070) - N/A Beta elizabeth for HF with prior LVEFANDlt;40 (NQF 0083) - N/A TORIN-I or ARB for ASHD with DM or prior LVEFANDlt;40 (NQF 0066) - N/A Statin therapy for ASHD or FHL or DM - met BMI documented and plan if ANDgt;25 (NQF 0421) - lifestyle recommendation form Tobacco use screening and referral (NQF 0028) - lifestyle recommendation form Recommendation for whole food, plant based diet - lifestyle recommendation form CLINICAL IMPRESSION/PLAN: Leatha Kern is doing well. She's been advised to continue her current medication. Atrial fibrillation is well controlled on the current dose. She's been advised that she may decrease her flecainide to 25 milligrams twice daily. If she has breakthrough, she's been advised to contact me. I will see her in 8 months or as needed. Written and verbal health teaching given to patient, patient verbalizes understanding and agrees with treatment plan. DIAGNOSIS FOR VISIT: PAF HISTORY OF PRESENT ILLNESS Leatha Kern returns for follow-up of her atrial fibrillation. She has been under less stress. She's been walking and working out at the [employer] spinning class. She's had no chest discomfort. She denies orthopnea, edema, syncope, palpitations, TIAs, amaurosis and claudication ALLERGIES: ALLERGIES Allergen Reactions - Iodine [Contrast Dy* Hives CURRENT OUTPATIENT MEDICATIONS: flecainide (TAMBOCOR) 100 mg tablet Take 25 mg twice a day warfarin (COUMADIN) 5 mg tablet Take 5 mg on Mon/Mon and 7.5 mg all other days or as directed. atorvastatin (LIPITOR) 20 mg tablet Take 1 tablet by mouth once daily. metoprolol tartrate, short acting, (LOPRESSOR) 25 mg tablet Take 0.5 tablets by mouth twice daily. nitroglycerin sublingual (NITROQUICK) 0.3 mg SL tablet Dissolve 1 tablet under the tongue every 5 minutes as needed. OTC PRODUCT Vitamin D 1000 unitis daily multivitamins w-minerals/lut(CENTRUM SILVER TAB) Take one(1) tablet daily. ascorbic acid(VITAMIN C 1,000 MG TAB) Take one(1) tablet daily. PHYSICAL EXAMINATION: VITAL SIGNS: BP 116/62 Pulse 55 Ht 5' 6ANDquot; (1.68m) Wt 168 lb 11.2 oz (76.5kg) BMI 27.24 kg/(m2). Chest: Clear to percussion and auscultation. Trachea is midline. Air entry is equal. Cardiac: Regular rhythm. S1 and S2 are normal. PMI is nondisplaced. There is a soft systolic ejection murmur. Carotids are brisk without bruits. JVP is less than 10 cm. Abdomen: Soft and nontender. There are no pulsatile masses or bruits. No liver enlargement. Bowel sounds are active. Extremities: Trace edema. Pulses are intact and symmetrical. EKG shows sinus bradycardia with first degree AV block. There is no significant change since 08/31/16. Recent labs were reviewed. Renal function is normal. LDL was 62. INR is followed in primary care. Electronically Signed: Zbigniew Calderon MD August 22, 2017 10:19 AM CC: DO Zbigniew Lorenzo MD 08/22/2017 10:19 AM Signed LIFESTYLE CHANGE A healthy lifestyle is the most important component of your overall treatment plan. Please give serious thought to the following areas and commit to making fdc changes. EAT A WHOLE FOOD, PLANT BASED DIET The nutrition your body gets is more important than the medicine you take. What matters most is the overall way you eat. We encourage you to minimize the use of animal products (which include dairy and all meats except fatty fish) and use whole, unprocessed plant foods to provide your protein, vitamins and other nutrients. We have a lot of information to share with you on this topic. We also hold Shared Medical Appointments, where you can come visit with Dr. Calderon in the company of other patients and spend over an hour talking about the challenges of changing the way you eat. This is not a ANDquot;dietANDquot;. It is a way of life that you will keep with you. EXERCISE REGULARLY It is not important to spend hours in the gym, lifting weights and perspiring heavily. A total of 2-3 hours per week of aerobic (causing you to be moderately short of breath) exercise is sufficient to improve your health. Talk to us before you begin a new exercise program, if you have heart disease or experience shortness of breath or chest pain. REDUCE STRESS Chronic emotional and physical stress leads to disease. Ways of reducing stress include meditation, visualization, prayer, yoga and other forms of relaxation therapy. Consistency is the blackmon. Find a technique that works for you and do it every day. CULTIVATE RELATIONSHIPS Loneliness and isolation have a major negative impact on health. Seek out others who can love, care for and nurture you. Avoid hurtful relationships. MAINTAIN IDEAL BODY WEIGHT The best way to do this is to do all the things above. Our bodies naturally find the right weight if we keep moving and feed ourselves the right food. If your BMI is greater than 25, we strongly recommend a referral to a weight management program. Please speak to us or your family physician about available programs. AVOID NICOTINE IN ALL FORMS This includes all tobacco products, whether chewed, smoked, vaped, or rubbed on the skin. Smoking cessation programs, which can make use of tobacco substitutes, medications to suppress cravings and behavior management, are available. Please contact your family physician about programs in your area. Referring Provider: ZBIGNIEW CALDERON [[id number]] Allergies As of Date: 08/22/2017 Noted Allergy Reaction IODINE (CONTRAST DYE) 01/10/2011 4 - Hives Date Reviewed: 08/22/2017 Reviewed by: Ginger Garcia) Luz - Fully Assessed Reason for Visit: Follow Up [171] Primary Visit Diagnosis:PAF (paroxysmal atrial fibrillation) (HCC) [I48.0] Order(s):ECG B/O W INTERP (MED OFFICE) [ECG06] Order #: [id number] flecainide (TAMBOCOR) 100 mg tabletTake 25 mg twice a dayDisp: Rfl: Prescriptions as of 08/22/2017 Sig: FLECAINIDE 100 MG TABLET Take 25 mg twice a day WARFARIN 5 MG TABLET Take 5 mg on Mon/Wed and 7.5 * ATORVASTATIN 20 MG TABLET Take 1 tablet by mouth once d* METOPROLOL TARTRATE 25 MG TAB* Take 0.5 tablets by mouth twi* NITROGLYCERIN 0.3 MG SUBLINGU* Dissolve 1 tablet under the t* OTC PRODUCT Vitamin D 1000 unitis daily CENTRUM SILVER TABLET Take one(1) tablet daily. VITAMIN C 1,000 MG TABLET Take one(1) tablet daily. Problem List As Of Date 08/22/2017 Noted Resolved ADJUSTMENT DISORDER WITH DEPRESSED MOOD [F43.21]INVALID FOR* UNSPECIFIED CONSTIPATION [K59.00] INVALID FOR* INSOMNIA NOS [G47.00] INVALID FOR* Hyperlipemia [E78.5] INVALID FOR*07/12/2017 Atrial fibrillation [I48.91] INVALID FOR*02/24/2014 Atrial fibrillation (HCC) [I48.91] INVALID FOR* FHx: colon cancer [Z80.0] INVALID FOR*04/27/2016 Heme positive stool [R19.5] INVALID FOR*04/27/2016 Hyperlipidemia, mixed [E78.2] INVALID FOR* Overweight (BMI 25.0-29.9) [E66.3] INVALID FOR* Elevated fasting blood sugar [R73.01] INVALID FOR* Impaired fasting glucose [R73.01] INVALID FOR* Other insomnia [G47.09] INVALID FOR* Other instructions from your clinician: LIFESTYLE CHANGE A healthy lifestyle is the most important component of your overall treatment plan. Please give serious thought to the following areas and commit to making fdc changes. EAT A WHOLE FOOD, PLANT BASED DIET The nutrition your body gets is more important than the medicine you take. What matters most is the overall way you eat. We encourage you to minimize the use of animal products (which include dairy and all meats except fatty fish) and use whole, unprocessed plant foods to provide your protein, vitamins and other nutrients. We have a lot of information to share with you on this topic. We also hold Shared Medical Appointments, where you can come visit with Dr. Calderon in the company of other patients and spend over an hour talking about the challenges of changing the way you eat. This is not a diet. It is a way of life that you will keep with you. EXERCISE REGULARLY It is not important to spend hours in the gym, lifting weights and perspiring heavily. A total of 2-3 hours per week of aerobic (causing you to be moderately short of breath) exercise is sufficient to improve your health. Talk to us before you begin a new exercise program, if you have heart disease or experience shortness of breath or chest pain. REDUCE STRESS Chronic emotional and physical stress leads to disease. Ways of reducing stress include meditation, visualization, prayer, yoga and other forms of relaxation therapy. Consistency is the blackmon. Find a technique that works for you and do it every day. CULTIVATE RELATIONSHIPS Loneliness and isolation have a major negative impact on health. Seek out others who can love, care for and nurture you. Avoid hurtful relationships. MAINTAIN IDEAL BODY WEIGHT The best way to do this is to do all the things above. Our bodies naturally find the right weight if we keep moving and feed ourselves the right food. If your BMI is greater than 25, we strongly recommend a referral to a weight management program. Please speak to us or your family physician about available programs. AVOID NICOTINE IN ALL FORMS This includes all tobacco products, whether chewed, smoked, vaped, or rubbed on the skin. Smoking cessation programs, which can make use of tobacco substitutes, medications to suppress cravings and behavior management, are available. Please contact your family physician about programs in your area. Prescriptions ordered this encounter Disp Refills Start End FLECAINIDE 100 MG TABLET 08/22/2017 Class: Med Update Sig: Take 25 mg twice a day Medications Discontinued During This Encounter flecainide (TAMBOCOR) 100 mg tablet 90 t* 3 04/18/2017 08/22/2017 Route: ORAL Sig: Take 0.5 tablets by mouth twice daily. Disc: Reason for discontinue is not on file. Encounter Status:Closed by ZBIGNIEW CALDERON MD on 08/23/17 PROGRESS Observed: 08/21/2017 Status: COMPLETED Source: [place] 12:11 PM [facility] REPOSITORY HNO ID: [id number] Author: Larry Kohli Service: (none) Author Type: Physician Type: Progress Notes Filed: 08/21/2017 12:17 PM Note Text: CC: Leatha Kern is a 82 year old female who presents to the office for follow up medication HPI: Paroxysmal atrial fibrillation, well controlled overall with Flecainide, use of Warfarin, INR in normal range today, denies any dyspnea, did have some LH/palpitations with exercise which were evaluated by Dr. Calderon without obvious cause. Denies any other concerns such as bleeding or new bruising ? Insomnia, not using the Ambien, Using the Melatonin, Tolerating it well. ? HPL, taking Lipitor 20 mg a day at bedtime, tolerating without SE ? ? Cholesterol Date Value Ref Range Status 09/01/2016 169 100 - 199 mg/dL Final HDL Cholesterol Date Value Ref Range Status 09/01/2016 81 >55 mg/dL Final LDL Cholesterol Date Value Ref Range Status 09/01/2016 77 60 - 129 mg/dL Final Triglyceride Date Value Ref Range Status 09/01/2016 57 30 - 149 mg/dL Final ? Cholesterol, Total Date Value Ref Range Status 08/15/2017 151 <200 mg/dL Final Comment: <200 mg/dL, Desirable 200-239 mg/dL, Borderline high >239 mg/dL, High HDL Cholesterol Date Value Ref Range Status 08/15/2017 75 >39 mg/dL Final Comment: 40-59 mg/dL, Acceptable >59 mg/dL, High: Negative risk factor for coronary heart disease <40 mg/dL, Low: Positive risk factor for coronary heart disease LDL Cholesterol Date Value Ref Range Status 08/15/2017 62 <100 mg/dL Final Comment: <100 mg/dL, Optimal 100-129 mg/dL, Near optimal/above optimal 130-159 mg/dL, Borderline high 160-189 mg/dL, High >189 mg/dL, Very high Secondary prevention optimal LDL Cholesterol levels are recommended to be < 70 mg/dL Triglyceride Date Value Ref Range Status 08/15/2017 70 <150 mg/dL Final Comment: <150 mg/dL, Normal 150-199 mg/dL, Borderline high 200-499 mg/dL, High >499 mg/dL, Very high ? Glucose (mg/dL) Date Value 09/01/2016 124 Potassium (mmol/L) Date Value 09/01/2016 4.2 Sodium (mmol/L) Date Value 09/01/2016 141 Chloride (mmol/L) Date Value 09/01/2016 101 CO2 (mmol/L) Date Value 09/01/2016 28 Creatinine (mg/dL) Date Value 09/01/2016 0.86 BUN (mg/dL) Date Value 09/01/2016 19 Anion Gap (mmol/L) Date Value 09/01/2016 12 Calcium (mg/dL) Date Value 09/01/2016 9.4 ? . Glucose (mg/dL) Date Value 08/15/2017 120 Potassium (mmol/L) Date Value 08/15/2017 4.7 Sodium (mmol/L) Date Value 08/15/2017 140 Chloride (mmol/L) Date Value 08/15/2017 103 CO2 (mmol/L) Date Value 08/15/2017 27 Creatinine (mg/dL) Date Value 08/15/2017 0.82 BUN (mg/dL) Date Value 08/15/2017 16 Anion Gap (mmol/L) Date Value 08/15/2017 10 Calcium (mg/dL) Date Value 08/15/2017 9.4 Protein, Total (g/dL) Date Value 08/15/2017 6.9 Albumin (g/dL) Date Value 08/15/2017 4.0 Bilirubin, Total (mg/dL) Date Value 08/15/2017 0.5 Alkaline Phosphatase (U/L) Date Value 08/15/2017 66 AST (U/L) Date Value 08/15/2017 24 ALT (U/L) Date Value 08/15/2017 18 Impaired fasting glucose, admits to not eating much protein Hemoglobin A1C Date Value Ref Range Status 08/15/2017 6.4 (H) 4.3 - 5.6 % Final 12/14/2016 6.2 (H) 4.3 - 5.6 % Final Comment: [place] Diabetes Association guidelines indicate that patients with HgbA1c in the range 5.7-6.4% are at increased risk for development of diabetes, and intervention by lifestyle modification may be beneficial. HgbA1c greater or equal to 6.5% is considered diagnostic of diabetes. PAST MEDICAL HISTORY Diagnosis Date - Disorder of bone and cartilage, unspecified 10/25 -1.1 LS, nl hip, no change from 2003 - External hemorrhoids without mention of complication - Family history of malignant neoplasm of gastrointestinal tract family history of colon cancer - Hypercholesterolemia - Internal hemorrhoids without mention of complication - Paroxysmal atrial fibrillation (HCC) Zbigniew Calderon MD. Warfarin. - Unspecified constipation PAST SURGICAL HISTORY Procedure Laterality Date - COLONOSCOP W/ OR W/O [facility] SPEC 2001 Colonoscopy - COLONOSCOP W/ OR W/O [facility] SPEC 04/27/16 Colonoscopy mac - EGD W/O OR W/BRUSH/WASH 04/27/16 EGD mac - PAST SURGICAL HISTORY OF 1985 lumbar laminectomy - REMOVAL OF TONSILS,<12 Y/O - REMV CATARACT EXTRACAP,INSERT LENS Mar 21 AND May 07, 3013 - SIGMOIDOSCOPY FLEX DIAG 08/09/06 - TOTAL ABDOM HYSTERECTOMY 1989 Hysterectomy, [facility] Dr. Fermin Conte Current Outpatient Prescriptions: warfarin (COUMADIN) 5 mg tablet Take 5 mg on Mon/Mon and 7.5 mg all other days or as directed. flecainide (TAMBOCOR) 100 mg tablet Take 0.5 tablets by mouth twice daily. atorvastatin (LIPITOR) 20 mg tablet Take 1 tablet by mouth once daily. metoprolol tartrate, short acting, (LOPRESSOR) 25 mg tablet Take 0.5 tablets by mouth twice daily. nitroglycerin sublingual (NITROQUICK) 0.3 mg SL tablet Dissolve 1 tablet under the tongue every 5 minutes as needed. OTC PRODUCT Vitamin D 1000 unitis daily multivitamins w-minerals/lut(CENTRUM SILVER TAB) Take one(1) tablet daily. ascorbic acid(VITAMIN C 1,000 MG TAB) Take one(1) tablet daily. No current facility-administered medications for this visit. ALLERGIES Allergen Reactions - Iodine [Contrast Dy* Hives Social History Marital status: Spouse name: XavierKaylah Years of education: 13 Number of children: 4 Occupational History Occupation Employer Comment retired [employer]* Social History Main Topics Smoking status: Never Smoker Smokeless status: Never Used Comment: No smoking in childhood. Spouse non-smoker. Alcohol use: Yes Comment: 1 glass wine every 2 weeks Drug use: No Sexual activity: Yes control/protection: Surgical Comment: HYSTERECTOMY Social History Narrative 4 sons Lives in [facility] Retired, family business Oldest son has met colon MARA, age 56, 2012 ROS: See HPI PE: BP 124/80 Pulse 52 Temp (Src) 96.7 (Left Tympanic) Resp 16 Wt 168 lb (76.2kg) Gen: AANDOX3, NAD, non-toxic appearing, pleasant, cooperative HEENT: PERRLA, EOMs intact b/l, nares without drainage, pharynx without erythema, exudate, lesions, or drainage. Uvula midline. MMM Neck: No LAD, no thyromegaly, no meningismus. CV: RRR, no murmur, normal s1s2 Lungs: CTA b/l, no wheezing No edema, normal pulses Skin: actinic keratosis left side of neck and left shoulder ASSESSMENT/PLAN: 1. Chronic atrial fibrillation (HCC) - ICD9: 427.31, ICD10: I48.2 (primary diagnosis) - taking Flecainide and beta elizabeth and Warfarin, stable 2. Other insomnia - ICD9: 780.52, ICD10: G47.09 - continue Melatonin 3. Overweight (BMI 25.0-29.9) - ICD9: 278.02, ICD10: E6 - needs to increase protein in diet 4. Impaired fasting glucose - ICD9: 790.21, ICD10: R73.01 - needs to increase protein in diet, worsening 5. Hyperlipidemia, mixed - ICD9: 272.2, ICD10: E78.2 - suboptimal control - Continue current medication. - Encouraged following a low fat, low cholesterol diet. - Discussed the benefits of regular aerobic exercise and weight loss. Larry Kohli DO Return if no improvement. Follow up with Larry Kohli DO. Discussed risks, benefits, alternatives, and potential side effects of medications. Patient/Guardian expressed understanding and agreed with the plan. See patient instructions. Larry Kohli DO [address] [place] [address] CNOV Observed: 08/21/2017 Status: COMPLETED Source: [place] 11:20 AM [facility] REPOSITORY [facility] LEATHA KERN ([id number]) 1935 F Date Time Provider Department 08/21/17 11:20 AM LARRY KOHLI During your visit today, we recorded the following information about you: Temperature Pulse Respiration Blood pressure 96.7 degrees 52/minute 16/minute 124/80 Weight 76.2 kg Larry Kohli, 08/21/2017 11:53 AM Signed Protein shake or drink once a day, 5 grams of carb or less if able Pea Protein into a smoothie is an option Cottage cheese Or cheese stick Oikos new zealander yogurt Triple zero black label, michael kahn Larry Knowleson, DO 08/21/2017 12:17 PM Signed CC: Leatha Kern is a 82 year old female who presents to the office for follow up medication HPI: Paroxysmal atrial fibrillation, well controlled overall with Flecainide, use of Warfarin, INR in normal range today, denies any dyspnea, did have some LH/palpitations with exercise which were evaluated by Dr. Calderon without obvious cause. Denies any other concerns such as bleeding or new bruising ? Insomnia, not using the Ambien, Using the Melatonin, Tolerating it well. ? HPL, taking Lipitor 20 mg a day at bedtime, tolerating without SE ? ? Cholesterol Date Value Ref Range Status 09/01/2016 169 100 - 199 mg/dL Final HDL Cholesterol Date Value Ref Range Status 09/01/2016 81 ANDgt;55 mg/dL Final LDL Cholesterol Date Value Ref Range Status 09/01/2016 77 60 - 129 mg/dL Final Triglyceride Date Value Ref Range Status 09/01/2016 57 30 - 149 mg/dL Final ? Cholesterol, Total Date Value Ref Range Status 08/15/2017 151 ANDlt;200 mg/dL Final Comment: ANDlt;200 mg/dL, Desirable 200-239 mg/dL, Borderline high ANDgt;239 mg/dL, High HDL Cholesterol Date Value Ref Range Status 08/15/2017 75 ANDgt;39 mg/dL Final Comment: 40-59 mg/dL, Acceptable ANDgt;59 mg/dL, High: Negative risk factor for coronary heart disease ANDlt;40 mg/dL, Low: Positive risk factor for coronary heart disease LDL Cholesterol Date Value Ref Range Status 08/15/2017 62 ANDlt;100 mg/dL Final Comment: ANDlt;100 mg/dL, Optimal 100-129 mg/dL, Near optimal/above optimal 130-159 mg/dL, Borderline high 160-189 mg/dL, High ANDgt;189 mg/dL, Very high Secondary prevention optimal LDL Cholesterol levels are recommended to be ANDlt; 70 mg/dL Triglyceride Date Value Ref Range Status 08/15/2017 70 ANDlt;150 mg/dL Final Comment: ANDlt;150 mg/dL, Normal 150-199 mg/dL, Borderline high 200-499 mg/dL, High ANDgt;499 mg/dL, Very high ? Glucose (mg/dL) Date Value 09/01/2016 124 Potassium (mmol/L) Date Value 09/01/2016 4.2 Sodium (mmol/L) Date Value 09/01/2016 141 Chloride (mmol/L) Date Value 09/01/2016 101 CO2 (mmol/L) Date Value 09/01/2016 28 Creatinine (mg/dL) Date Value 09/01/2016 0.86 BUN (mg/dL) Date Value 09/01/2016 19 Anion Gap (mmol/L) Date Value 09/01/2016 12 Calcium (mg/dL) Date Value 09/01/2016 9.4 ? . Glucose (mg/dL) Date Value 08/15/2017 120 Potassium (mmol/L) Date Value 08/15/2017 4.7 Sodium (mmol/L) Date Value 08/15/2017 140 Chloride (mmol/L) Date Value 08/15/2017 103 CO2 (mmol/L) Date Value 08/15/2017 27 Creatinine (mg/dL) Date Value 08/15/2017 0.82 BUN (mg/dL) Date Value 08/15/2017 16 Anion Gap (mmol/L) Date Value 08/15/2017 10 Calcium (mg/dL) Date Value 08/15/2017 9.4 Protein, Total (g/dL) Date Value 08/15/2017 6.9 Albumin (g/dL) Date Value 08/15/2017 4.0 Bilirubin, Total (mg/dL) Date Value 08/15/2017 0.5 Alkaline Phosphatase (U/L) Date Value 08/15/2017 66 AST (U/L) Date Value 08/15/2017 24 ALT (U/L) Date Value 08/15/2017 18 Impaired fasting glucose, admits to not eating much protein Hemoglobin A1C Date Value Ref Range Status 08/15/2017 6.4 (H) 4.3 - 5.6 % Final 12/14/2016 6.2 (H) 4.3 - 5.6 % Final Comment: [place] Diabetes Association guidelines indicate that patients with HgbA1c in the range 5.7-6.4% are at increased risk for development of diabetes, and intervention by lifestyle modification may be beneficial. HgbA1c greater or equal to 6.5% is considered diagnostic of diabetes. PAST MEDICAL HISTORY Diagnosis Date - Disorder of bone and cartilage, unspecified 10/25 -1.1 LS, nl hip, no change from 2003 - External hemorrhoids without mention of complication - Family history of malignant neoplasm of gastrointestinal tract family history of colon cancer - Hypercholesterolemia - Internal hemorrhoids without mention of complication - Paroxysmal atrial fibrillation (HCC) Zbigniew Calderon MD. Warfarin. - Unspecified constipation PAST SURGICAL HISTORY Procedure Laterality Date - COLONOSCOP W/ OR W/O [facility] SPEC 2001 Colonoscopy - COLONOSCOP W/ OR W/O [facility] SPEC 04/27/16 Colonoscopy mac - EGD W/O OR W/BRUSH/WASH 04/27/16 EGD mac - PAST SURGICAL HISTORY OF 1985 lumbar laminectomy - REMOVAL OF TONSILS,ANDlt;13 Y/O - REMV CATARACT EXTRACAP,INSERT LENS Mar 21 AND; May 07, 3013 - SIGMOIDOSCOPY FLEX DIAG 08/09/06 - TOTAL ABDOM HYSTERECTOMY 1989 Hysterectomy, [facility] Dr. Fermin Conte Current Outpatient Prescriptions: warfarin (COUMADIN) 5 mg tablet Take 5 mg on Mon/Wed and 7.5 mg all other days or as directed. flecainide (TAMBOCOR) 100 mg tablet Take 0.5 tablets by mouth twice daily. atorvastatin (LIPITOR) 20 mg tablet Take 1 tablet by mouth once daily. metoprolol tartrate, short acting, (LOPRESSOR) 25 mg tablet Take 0.5 tablets by mouth twice daily. nitroglycerin sublingual (NITROQUICK) 0.3 mg SL tablet Dissolve 1 tablet under the tongue every 5 minutes as needed. OTC PRODUCT Vitamin D 1000 unitis daily multivitamins w-minerals/lut(CENTRUM SILVER TAB) Take one(1) tablet daily. ascorbic acid(VITAMIN C 1,000 MG TAB) Take one(1) tablet daily. No current facility-administered medications for this visit. ALLERGIES Allergen Reactions - Iodine [Contrast Dy* Hives Social History Marital status: Spouse name: XavierKaylah Years of education: 13 Number of children: 4 Occupational History Occupation Employer Comment retired [employer]* Social History Main Topics Smoking status: Never Smoker Smokeless status: Never Used Comment: No smoking in childhood. Spouse non-smoker. Alcohol use: Yes Comment: 1 glass wine every 2 weeks Drug use: No Sexual activity: Yes control/protection: Surgical Comment: HYSTERECTOMY Social History Narrative 4 sons Lives in [facility] Retired, family business Oldest son has met colon MARA, age 56, 2012 ROS: See HPI PE: BP 124/80 Pulse 52 Temp (Src) 96.7 (Left Tympanic) Resp 16 Wt 168 lb (76.2kg) Gen: AANDamp;OX3, NAD, non-toxic appearing, pleasant, cooperative HEENT: PERRLA, EOMs intact b/l, nares without drainage, pharynx without erythema, exudate, lesions, or drainage. Uvula midline. MMM Neck: No LAD, no thyromegaly, no meningismus. CV: RRR, no murmur, normal s1s2 Lungs: CTA b/l, no wheezing No edema, normal pulses Skin: actinic keratosis left side of neck and left shoulder ASSESSMENT/PLAN: 1. Chronic atrial fibrillation (HCC) - ICD9: 427.31, ICD10: I48.2 (primary diagnosis) - taking Flecainide and beta elizabeth and Warfarin, stable 2. Other insomnia - ICD9: 780.52, ICD10: G47.09 - continue Melatonin 3. Overweight (BMI 25.0-29.9) - ICD9: 278.02, ICD10: E6 - needs to increase protein in diet 4. Impaired fasting glucose - ICD9: 790.21, ICD10: R73.01 - needs to increase protein in diet, worsening 5. Hyperlipidemia, mixed - ICD9: 272.2, ICD10: E78.2 - suboptimal control - Continue current medication. - Encouraged following a low fat, low cholesterol diet. - Discussed the benefits of regular aerobic exercise and weight loss. Larry Kohli DO Return if no improvement. Follow up with Larry Kohli DO. Discussed risks, benefits, alternatives, and potential side effects of medications. Patient/Guardian expressed understanding and agreed with the plan. See patient instructions. Larry Kohli DO [address] [place] [address] Referring Provider: LARRY KOHLI [[id number]] Allergies As of Date: 08/21/2017 Noted Allergy Reaction IODINE (CONTRAST DYE) 01/10/2011 4 - Hives Date Reviewed: 08/21/2017 Reviewed by: Larry Kohli - Fully Assessed Reason for Visit: Hypertension [168] Primary Visit Diagnosis:Chronic atrial fibrillation (HCC) [I48.2] Other Visit Diagnoses:Other insomnia [G47.09] Overweight (BMI 25.0-29.9) [E66.3] Impaired fasting glucose [R73.01] Hyperlipidemia, mixed [E78.2] Prescriptions as of 08/21/2017 Sig: WARFARIN 5 MG TABLET Take 5 mg on Mon/Wed and 7.5 * FLECAINIDE 100 MG TABLET Take 0.5 tablets by mouth twi* ATORVASTATIN 20 MG TABLET Take 1 tablet by mouth once d* METOPROLOL TARTRATE 25 MG TAB* Take 0.5 tablets by mouth twi* NITROGLYCERIN 0.3 MG SUBLINGU* Dissolve 1 tablet under the t* OTC PRODUCT Vitamin D 1000 unitis daily CENTRUM SILVER TABLET Take one(1) tablet daily. VITAMIN C 1,000 MG TABLET Take one(1) tablet daily. Problem List As Of Date 08/21/2017 Noted Resolved ADJUSTMENT DISORDER WITH DEPRESSED MOOD [F43.21]INVALID FOR* UNSPECIFIED CONSTIPATION [K59.00] INVALID FOR* INSOMNIA NOS [G47.00] INVALID FOR* Hyperlipemia [E78.5] INVALID FOR*07/12/2017 Atrial fibrillation [I48.91] INVALID FOR*02/24/2014 Atrial fibrillation (HCC) [I48.91] INVALID FOR* FHx: colon cancer [Z80.0] INVALID FOR*04/27/2016 Heme positive stool [R19.5] INVALID FOR*04/27/2016 Hyperlipidemia, mixed [E78.2] INVALID FOR* Overweight (BMI 25.0-29.9) [E66.3] INVALID FOR* Elevated fasting blood sugar [R73.01] INVALID FOR* Impaired fasting glucose [R73.01] INVALID FOR* Other insomnia [G47.09] INVALID FOR* Other instructions from your clinician: Protein shake or drink once a day, 5 grams of carb or less if able Pea Protein into a smoothie is an option Cottage cheese Or cheese stick [employer]ik[employer] new zealander yogurt Triple zero black label, vanilla, stevia Medications Discontinued During This Encounter zolpidem (AMBIEN) 5 mg tablet 30 t* 5 11/09/2016 08/21/2017 Class: Print RX Route: ORAL Sig: Take 1 tablet by mouth daily at bedtime. FOR SLEEP Disc: Reason for discontinue is not on file. Encounter Status:Closed by LARRY KOHLI DO on 08/21/17 CBC AND DIFFERENTIAL Collected: 08/15/2017 Status: F Source: [place] 8:47 [facility] REPOS[facility] TYPE CODE TESTS RESULT OUT OF REFERENCE UNITS RANGE LAB WBC 3.70-11.00 k/uL WBC 6.37 LAB RBC 3.90-5.20 m/uL RBC 4.40 LAB HGB 11.5-15.5 g/dL Hemoglobin 13.1 LAB HCT 36.0-46.0 % Hematocrit 41.2 LAB MCV 80.0-100.0 fL MCV 93.6 LAB MCH 26.0-34.0 pG MCH 29.8 LAB MCHC 30.5-36.0 g/dL MCHC 31.8 LAB RDWCV 11.5-15.0 % RDW-CV 13.0 LAB PLTCT 150-400 k/uL Low Platelet Count 144 LAB MPV 9.0-12.7 fL MPV 12.7 LAB ANEUT % Neut% 46.1 LAB AANEUT 1.45-7.50 k/uL Abs Neut 2.93 LAB ALYMP % Lymph% 42.9 LAB AALYMP 1.00-4.00 k/uL Abs Lymph 2.73 LAB AMONO % [place]% 8.5 LAB AAMONO <0.87 k/uL Abs [place] 0.54 LAB AEOS % Eosin% 1.9 LAB AAEOS <0.46 k/uL Abs Eosin 0.12 LAB ABASO % Baso% 0.6 LAB AABASO <0.11 k/uL Abs Baso 0.04 LAB AUNRBC 0 /100 WBC NRBCs 0.0 LAB ABNRBC <0.01 k/uL Absolute nRBC <0.01 LAB DTYP DTYPE Auto Diff Performed By: #### CBCDIF, CMP, LIPB, HBA1C #### [facility] [address] [place], [place] [address] COMP METABOLIC PANEL Collected: 08/15/2017 Status: F Source: [place] 8:47 [facility] REPOSITORY TYPE CODE TESTS RESULT OUT OF REFERENCE UNITS RANGE LAB TP 6.3-8.0 g/dL Protein, Total 6.9 LAB ALB 3.9-4.9 g/dL Albumin 4.0 LAB CA 8.5-10.2 mg/dL Calcium, Total 9.4 LAB TBIL 0.2-1.3 mg/dL Bilirubin, Total 0.5 LAB ALKP 32-117 U/L Alkaline Phosphatase 66 LAB AST 13-35 U/L AST 24 LAB GLU 74-99 mg/dL Glucose High 120 Result Comment: The [place] Diabetes Association (ADA) provides guidance for cutoff values for fasting glucose and random glucose. The ADA defines fasting as no caloric intake for at least 8 hours. Fas ting plasma glucose results between 100 to 125 mg/dL indicate increased risk for diabetes (prediabetes). Fasting plasma glucose results greater than or equal to 126 mg/dL meet the criteria for diagnosis of diabetes. In the absence of unequivocal hyperglycemia, results should be confirmed by repeat testing. In a patient with classic symptoms of hyperglycemia or hyperglycemic crisis, random plasma glucose results greater than or equal to 200 mg/dL meet the criteria for diagnosis of diabetes. Reference: Standards of Medical Care in Diabetes 2016, [place] Diabetes Association. Diabetes Care. 2016.39(Suppl 1). LAB BUN 7-21 mg/dL BUN 16 LAB CRET 0.58-0.96 mg/dL Creatinine 0.82 LAB NA 136-144 mmol/L Sodium 140 LAB K 3.7-5.1 mmol/L Potassium 4.7 LAB CL 97-105 mmol/L Chloride 103 LAB CO2 22-30 mmol/L CO2 27 LAB AGAP 9-18 mmol/L Anion Gap 10 LAB ALT 7-38 U/L ALT 18 LAB GFRAA eGFR- Amer. >60 LAB GFRNAA . eGFR-All Other Races >60 Result Comment: eGFR (Estimated GFR) Units of measure: mL/min/1.73 meters squared eGFR is derived from the reexpressed MDRD Study equation using the following parameters: serum creatinine, age, gender and race. The creatinine assay has been calibrated to be traceable to IDMS. An eGFR <60 mL/min/1.73m2 for >3 months is consistent with chronic kidney disease. Refer to KDOQI guidelines for clinical interpretation. In patients with unstable renal function, e.g. those with acute kidney injury, the eGFR may not accurately reflect actual GFR. Performed By: #### CBCDIF, CMP, LIPB, HBA1C #### [facility] [address] [place], [place] [address] LIPID PANEL, BASIC Collected: 08/15/2017 Status: F Source: [place] 8:47 AM [facility] REPOSITORY TYPE CODE TESTS RESULT OUT OF REFERENCE UNITS RANGE LAB CHOL <200 mg/dL Cholesterol 151 Result Comment: <200 mg/dL, Desirable 200-239 mg/dL, Borderline high >239 mg/dL, High LAB TRIGLY <150 mg/dL Triglyceride 70 Result Comment: <150 mg/dL, Normal 150-199 mg/dL, Borderline high 200-499 mg/dL, High >499 mg/dL, Very high LAB HDL >39 mg/dL HDL-Cholesterol 75 Result Comment: 40-59 mg/dL, Acceptable >59 mg/dL, High: Negative risk factor for coronary heart disease <40 mg/dL, Low: Positive risk factor for coronary heart disease LAB LDL <100 mg/dL LDL-Cholesterol 62 Result Comment: <100 mg/dL, Optimal 100-129 mg/dL, Near optimal/above optimal 130-159 mg/dL, Borderline high 160-189 mg/dL, High >189 mg/dL, Very high Secondary prevention optimal LDL Cholesterol levels are recommended to be < 70 mg/dL LAB NONHDL <130 mg/dL Non HDL Cholesterol 76 Result Comment: <130 mg/dL, Optimal 130-159 mg/dL, Near optimal/above optimal 160-189 mg/dL, Borderline high 190-219 mg/dL, High >219 mg/dL, Very high Secondary prevention optimal non HDL Cholesterol levels are recommended to be < 100 mg/dL LAB FT hrs Fasting Time 8 LAB VLDL <30 mg/dL VLDL Cholesterol 14 LAB TCHDL <5.10 TC:HDL Ratio 2.01 LAB LDLHDL <2.54 LDL:HDL Ratio 0.83 Result Comment: Reference: 1. National Cholesterol Education Program ATP III Guideline At-A-Glance Quick Desk Reference: National Heart, Lung, and Blood [place]. National Institutes of Health. 2001: NIH Publication No. 01-3305. 2. An International Atherosclerosis Society position paper: global recommendations for the management of dyslipidemia: executive summary, Atherosclerosis. 2014: 232(2):410-413. Performed By: #### CBCDIF, CMP, LIPB, HBA1C #### [facility] [address] [place], [place] [address] HEMOGLOBIN A1C Collected: 08/15/2017 Status: F Source: [place] 8:47 AM [facility] REPOSITORY TYPE CODE TESTS RESULT OUT OF REFERENCE UNITS RANGE LAB HGBA1C 4.3-5.6 % High Hemoglobin A1c 6.4 LAB HBA0 mg/dL Est. Average Glucose 137 Result Comment: eAG: (Estimated average glucose) is a calculated value from HgbA1c and is district representative of the average blood glucose level in the last 2-3 month period. Performed By: #### CBCDIF, CMP, LIPB, HBA1C #### [facility] [address] [place] [address] PROGRESS Observed: 07/31/2017 Status: COMPLETED Source: [place] 3:45 PM [facility] REPOSITORY HNO ID: [id number] Author: Ginger Weber) KANCHAN Taylor Service: (none) Author Type: Nurse Practitioner Type: Progress Notes Filed: 07/31/2017 3:47 PM Note Text: Agree with recommendation. Ginger Taylor CNP PROGRESS Observed: 07/31/2017 Status: COMPLETED Source: [place] 3:30 PM [facility] REPOSITORY HNO ID: [id number] Author: Pearl Verduzco RN Service: (none) Author Type: (none) Type: Progress Notes Filed: 07/31/2017 3:31 PM Note Text: patient had inr completed at [facility] patients inr is 2.3 (patients inr range is 2.0-3.0) patient is currently taking 5mg Mon,Wed and 7.5mg all other days patients last dose change was on 08/24/16 due to a high level of 3.5 (dose at that time was 7.5mg daily) patient has had no changes in medication and no missed doses and no change in diet Advised patient to continue on the same dose(s) and that they would only be contacted regarding dosage and follow up instructions after review with provider, if a change is needed. Written instructions given and patient verbalized understanding. Presently scheduled in 4 weeks (08/28/17) for follow up INR. PROGRESS Observed: 07/17/2017 Status: COMPLETED Source: [place] 4:26 PM [facility] REPOSITORY HNO ID: [id number] Author: Larry Kohli Service: (none) Author Type: Physician Type: Progress Notes Filed: 07/18/2017 7:18 AM Note Text: Agree with below Larry Kohli DO PROGRESS Observed: 07/17/2017 Status: COMPLETED Source: [place] 3:22 PM [facility] REPOSITORY HNO ID: [id number] Author: Pearl Verduzco RN Service: (none) Author Type: (none) Type: Progress Notes Filed: 07/17/2017 3:24 PM Note Text: patient had inr completed at [facility] patients inr is 1.9 (patients inr range is 2.0-3.0) patient is currently taking 5mg Mon,Mon and 7.5mg all other days patients last dose change was on 08/24/16 due to a high level of 3.4 (dose at that time was 7.5mg daily) patient has had no changes in medication and no missed doses and no change in diet Advised patient to continue on the same dose(s) and that they would only be contacted regarding dosage and follow up instructions after review with provider, if a change is needed. Written instructions given and patient verbalized understanding. Presently scheduled in 2 weeks (07/31/17) for follow up INR since level is just slightly under the normal level. PROGRESS Observed: 06/19/2017 Status: COMPLETED Source: [place] 4:18 PM [facility] REPOSITORY HNO ID: [id number] Author: Larry Kohli Service: (none) Author Type: Physician Type: Progress Notes Filed: 06/19/2017 4:21 PM Note Text: Agree with below DO KAIN Lorenzo Observed: 06/19/2017 Status: COMPLETED Source: [place] 3:30 PM [facility] REPOSITORY Anticoagulation Visit (COUMWS) LEATHA KERN ([id number]) 1935 F Date Time Provider Department 06/19/17 3:30 PM [facility] During your visit today, we recorded the following information about you: Pearl Verduzco RN 06/19/2017 3:25 PM Signed patient had inr completed at [facility] patients inr is 2.2 (patients inr range is 2.0-3.0) patient is currently taking 5mg Mon,Mon and 7.5mg all other days patients last dose change was on 08/24/16 due to a high level of 3.5 (dose at that time was 7.5mg daily) patient has had no changes in medication and no change in diet Advised patient to continue on the same dose(s) and that they would only be contacted regarding dosage and follow up instructions after review with provider, if a change is needed. Written instructions given and patient verbalized understanding. Presently scheduled in 4 weeks (07/17/17) for follow up INR. Larry Kohli DO 06/19/2017 4:21 PM Signed Agree with below Larry Kohli DO Referring Provider: LARRY KOHLI [[id number]] Allergies As of Date: 06/19/2017 Noted Allergy Reaction IODINE (CONTRAST DYE) 01/10/2011 4 - Hives Date Reviewed: 06/19/2017 Reviewed by: Pearl Verduzco RN - Fully Assessed Reason for Visit: Anticoagulation [8] Visit Diagnosis:Atrial fibrillation, unspecified type (HCC) [I48.91] Order(s):INR (POC) [8861762] Order #: [id number]. #:[id number] Prescriptions as of 06/19/2017 Sig: FLECAINIDE 100 MG TABLET Take 0.5 tablets by mouth twi* ATORVASTATIN 20 MG TABLET Take 1 tablet by mouth once d* METOPROLOL TARTRATE 25 MG TAB* Take 0.5 tablets by mouth twi* ZOLPIDEM 5 MG TABLET Take 1 tablet by mouth daily * WARFARIN 5 MG TABLET Take 5 mg on Mon/Mon and 7.5 * NITROGLYCERIN 0.3 MG SUBLINGU* Dissolve 1 tablet under the t* OTC PRODUCT Vitamin D 1000 unitis daily CENTRUM SILVER TABLET Take one(1) tablet daily. VITAMIN C 1,000 MG TABLET Take one(1) tablet daily. Problem List As Of Date 06/19/2017 Noted Resolved ADJUSTMENT DISORDER WITH DEPRESSED MOOD [F43.21]INVALID FOR* UNSPECIFIED CONSTIPATION [K59.00] INVALID FOR* INSOMNIA NOS [G47.00] INVALID FOR* Hyperlipemia [E78.5] INVALID FOR* Atrial fibrillation [I48.91] INVALID FOR*02/24/2014 Atrial fibrillation (HCC) [I48.91] INVALID FOR* FHx: colon cancer [Z80.0] INVALID FOR*04/27/2016 Heme positive stool [R19.5] INVALID FOR*04/27/2016 HYPERLIPIDEMIA [E78.5] INVALID FOR* Overweight (BMI 25.0-29.9) [E66.3] INVALID FOR* Elevated fasting blood sugar [R73.01] INVALID FOR* Follow-up and Disposition History Recorded Encounter Status:Closed by PEARL VERDUZCO RN on 06/19/17 PROGRESS Observed: 06/19/2017 Status: COMPLETED Source: [place] 3:23 PM [facility] [place] REPOSITORY HNO ID: [id number] Author: Pearl Verduzco RN Service: (none) Author Type: (none) Type: Progress Notes Filed: 06/19/2017 3:25 PM Note Text: patient had inr completed at [facility] patients inr is 2.2 (patients inr range is 2.0-3.0) patient is currently taking 5mg Mon,Mon and 7.5mg all other days patients last dose change was on 08/24/16 due to a high level of 3.5 (dose at that time was 7.5mg daily) patient has had no changes in medication and no change in diet Advised patient to continue on the same dose(s) and that they would only be contacted regarding dosage and follow up instructions after review with provider, if a change is needed. Written instructions given and patient verbalized understanding. Presently scheduled in 4 weeks (07/17/17) for follow up INR. ALLERGIES ALLERGIES DATE TYPE / CODE NAME / CODE REACTION SEVERITY SOURCE 01/10/2011 DRUG CONTRAST DYE HIVES High [facility] INGREDI/419 Other [place] 237403(SNOM Repository ED CT) [id number] CONTRAST DYE [facility] 6[facility] Repository ENCOUNTERS ENCOUNTERS ADMIT/DISCHARGE ACCOUNT NUMBER ADMITTING ENCOUNTER LOCATION SOURCE CLASS 06/08/2018/06/11/19 [id number] Ambulatory [address] Repository 06/08/2018/06/11/19 [id number] Ambulatory [address] Repository 05/09/2018/05/10/20 [id number] Ambulatory [address] Repository 05/02/2018 [id number] Ambulatory [place] [facility] ding:LABSPEC Repository 05/02/2018/05/02/20 [id number] Ambulatory [facility] [place] Repository 05/02/2018/05/03/20 [id number] Ambulatory [facility] [place] Repository 04/24/2018/04/25/20 [id number] Ambulatory [facility] [place] Repository 04/24/2018 [id number] Ambulatory [facility] MEDICAL Repository CENTERBuildi ng:CAGWS 04/06/2018/04/09/20 [id number] Ambulatory [facility] [place] Repository 04/02/2018/04/03/20 [id number] Ambulatory [facility] [place] Repository 02/26/2018/02/28/20 [id number] Ambulatory [facility] [place] Repository 01/24/2018/01/27/20 [id number] Ambulatory [place] [facility] [place] Repository 01/09/2018/01/11/20 [id number] Ambulatory [place] [facility] [place] Repository 01/01/2018/01/03/20 [id number] Ambulatory [facility] [place] Repository 12/25/2017/12/27/19 [id number] Ambulatory [facility] [place] Repository 12/06/2017/12/08/19 [id number] Ambulatory [facility] [place] Repository 10/23/2017/10/25/19 [id number] Ambulatory [facility] [place] Repository 09/25/2017/09/27/19 [id number] Ambulatory [facility] [place] Repository 08/28/2017/08/30/19 [id number] Ambulatory [place] [facility] [place] Repository 08/22/2017/08/23/19 [id number] Ambulatory [place] [facility] Other [place] Repository 08/22/2017/08/23/19 [id number] Ambulatory VARITESH [address] MEDICAL Repository CENTERBuildi ng:CAGWS 08/21/2017/08/23/19 [id number] Ambulatory [place] [facility] [place] Repository 08/15/2017/08/16/19 [id number] Ambulatory [place] [facility] [place] Repository 07/31/2017/08/02/19 [id number] Ambulatory [place] [facility] [place] Repository 07/17/2017/07/19/19 [id number] Ambulatory [address] Repository 06/19/2017/06/20/19 [id number] Ambulatory [address] Repository PAYERS PAYERS ENCOUNTER GUARANTOR PAYER SUBSCRIBER SOURCE 05/02/2018 LEATHA J Primary LEATHA J [place] [id number] Insurance:MEDICARE ROBERTSDOB: Critical access hospital LNAPT PART A BPolicy [id number] Number: Repository [address]Buq: [phone] [id number] [phone] (HP) Date:2018-05-02 05/02/2018 Secondary LEATHA J [place] Insurance:ОЛЕГ ROBERTSDOB: [facility] INVESTORS LIFE [id number] Hospital INSPolicy Number: Repository [id number] Date:[id number] [address] [address]EO: 05/02/2018 Tertiary NOT GIVENUNK Inés Insurance:SELF PAY [facility] Number: Effective Repository Date:2018-05-02 04/24/2018 LEATHA J Primary LEATHA J [facility] ROBERTSDOB: Insurance:MEDICARE A ROBERTSDOB: Health System AND BPolicy Number: [id number] [facility] [id number] [address] [place] [address], [place] Date: [address]Zil: (HP) 04/24/2018 Secondary LEATHA J [facility] Insurance:EVERENCEPol ROBERTSDOB: Health System icy Number: [id number] Repository [id number] Date: 08/22/2017 LEATHA J Primary LEATHA J [facility] ROBERTSDOB: Insurance:MEDICARE A ROBERTSDOB: Health System AND BPolicy Number: [id number] [facility]ository [facility] [id number] [address] [place] [address], [place] Date: [address]Gja: (HP) 08/22/2017 Secondary LEATHA J [facility] Insurance:EVERENCEPol ROBERTSDOB: Health System icy Number: [id number] Repository [id number] Date:
== END ==
PROVIDERS: Referring Provider Student in an Organized Health Care Education/Training Program; Visit Provider Student in an Organized Health Care Education/Training Program
DX: I48.91 Unspecified atrial fibrillation (principal)
CPT/HCPCS: 85610

== ENCOUNTER → 2019-06-06 08:43 | Outpatient (CLI) | payer MEDICARE, OTHER, SELFPAY ==
[2019-05-29 10:44] VITALS: BMI 26.1
[2019-06-06 10:09] LABS: AST(SGOT) 17 U/L (15-37); Alanine Aminotransfer ALT/SGPT 22 U/L (13-56); Albumin, Serum 3.5 g/dL (3.2-5.0); Alkaline Phosphatase 86 U/L (45-117); Bilirubin, Direct 0.15 mg/dL (0.00-0.30); Cholesterol 157 mg/dL (200); Globulin 3.7 g/dL (2.2-4.2); High Density Lipoprotein 78 mg/dL; Protein, Total 7.2 g/dL (6.4-8.2); Triglycerides 57 mg/dL; Very Low Density Lipoprotein 11 mg/dL (5-40)
== END ==
PROVIDERS: PCP Student in an Organized Health Care Education/Training Program; Referring Provider Internal Medicine Cardiovascular Disease; Visit Provider Internal Medicine Cardiovascular Disease
DX: E78.5 Hyperlipidemia, unspecified (principal)
CPT/HCPCS: 36415; 80061; 80076

== ENCOUNTER → 2019-06-12 07:00 | Outpatient (CLI) | payer MEDICARE, OTHER, SELFPAY ==
[2019-05-29 10:44] VITALS: BMI 26.1
--- NOTE | 2019-06-12 18:02 | STRESSREP ---
Stress Test Report Exercise myocardial perfusion stress test. 83-year-old man with a history of chest pain, history of atrial fibrillation. Medications: Atorvastatin, metoprolol, flecainide, Coumadin. Stress protocol: Resting EKG demonstrates normal sinus rhythm with a rate of 61 bpm normal intervals are noted resting blood pressure is 128/68 mmHg. The patient exercised according to regular Addy protocol for total duration of 6 minutes. The maximum heart rate attained was 133 bpm which was 96% of maximal predicted heart rate the maximum workload was 7 metabolic equivalents. The patient maintained sinus rhythm throughout the recording. No atrial fibrillation was noted no QRS changes were noted. At rest and during exercise upsloping ST changes were noted with no meet the criteria for ischemia the test was terminated due to dyspnea. The resting blood pressure was 128/68 with a peak blood pressure 166/60 mmHg. Myocardial perfusion protocol. 10.5 mCi of technetium 99m sestamibi was injected at rest. The patient exercised according to regular Addy protocol for a total duration of 6 minutes. At peak exercise 30.6 mCi of technetium 99m sestamibi was injected stress images were obtained stress and rest images were reconstructed in comparing the short axis vertical long horizontal long axis. Gated images were also obtained per Perfusion SPECT analysis: Review of the stress images demonstrate normal uptake of tracer in all areas of the myocardium. No defect is noted. The resting images demonstrate a similar pattern. No areas of reversibility are noted suggest ischemia or infarct. Gated SPECT analysis: The gated ejection fraction is noted to be 83%. Conclusion: Normal exercise myocardial perfusion stress test at a moderate workload. No ischemia noted. No arrhythmias noted Preserved ejection fraction
== END ==
PROVIDERS: Family Provider Student in an Organized Health Care Education/Training Program; PCP Student in an Organized Health Care Education/Training Program; Referring Provider Internal Medicine Cardiovascular Disease; Visit Provider Internal Medicine Cardiovascular Disease
DX: I48.0 Paroxysmal atrial fibrillation (principal); R94.31 Abnormal electrocardiogram [ECG] [EKG]; Z79.899 Other long term (current) drug therapy
CPT/HCPCS: 78452; 93017; A9500; A4216

== ENCOUNTER → 2019-11-13 08:35 | Outpatient (CLI) | payer MEDICARE, OTHER, SELFPAY ==
[2019-05-29 10:44] VITALS: BMI 26.1
[2019-11-13 08:52] LABS: Mucous, Urine 0 SEEN /hpf (<or=2+); Red Blood Cells-Urine 0 SEEN /hpf (0-5)
[2019-11-13 10:30] LABS: Absolute Lymphocyte Count 2.17 X10^3/uL (0.83-4.51); Absolute Neutrophil Count 3.1 X10^3/uL (2.0-7.7); Basophil# 0.03 X10^3/uL; Basophil% 0.5 % (0-1); Eosinophil# 0.17 X10^3/uL; Eosinophils% 2.8 % (0-5); Hematocrit 41.7 % (37-47); Hemoglobin 13.4 g/dL (12.0-15.0); Lymphocyte # 2.17 X10^3/ul (4.0); Lymphocyte % 36.1 % (19-41); Mean Corp Hgb Conc 32.1 g/dL (32-36); Mean Corpuscular Hgb 30.7 pg (27.0-32.0); Mean Corpuscular Volume 95.4 fL (81-99); Monocyte# 0.55 X10^3/uL; Monocyte% 9.2 % (0-10); NRBC Flagged by Analyzer 0 % (0-5); Neutrophil # 3.08 X10^3/uL (2.7-7.7); Neutrophil % 51.2 % (47-70); Platelet Count 121 K/mm3 (150-450); RBC Distribution Width CV 13.1 % (11.6-14.6); RBC Distribution Width SD 45.8 fl (35.1-43.9); Red Blood Count 4.37 M/mm3 (4.2-5.4)
[2019-11-13 10:42] LABS: Vitamin B12 388 pg/mL (211-911); Vitamin D,25 Hydroxy 36.3 ng/mL
[2019-11-13 10:49] LABS: Color, Urine Yellow (Yellow); Glucose, Dipstick Normal (Normal); Ketone-Dipstick Negative (Negative); Leukocyte Esterase-Dipstick 500 /ul (Negative); Nitrite-Dipstick Positive (Negative); Occult Blood-Urine 10 /ul (Negative); Protein-Dipstick Negative (Negative); Specific Gravity, Urine 1.015 (1.002-1.030); Urine Bilirubin Dipstick Negative (Negative); Urine Clarity Cloudy (Clear); Urine Urobilinogen Normal (Normal); Urine pH 6.5 (5.0 - 8.0)
[2019-11-13 10:55] LABS: Squamous Epithelial Cells - UA 5-10 SEEN /hpf (5-10)
[2019-11-13 10:57] LABS: Bacteria 3+ /hpf (None Seen); White Blood Cells 10-25 SEEN /hpf (0-5)
[2019-11-13 10:59] LABS: ALB/GLOB Ratio 0.9 RATIO (0.9-2.4); AST(SGOT) 17 U/L (15-37); Alanine Aminotransfer ALT/SGPT 24 U/L (13-56); Albumin, Serum 3.5 g/dL (3.2-5.0); Alkaline Phosphatase 83 U/L (45-117); Anion Gap 5 (5-15); BUN 19 mg/dL (7-18); BUN/Creat Ratio 25.2 RATIO (10-20); Calcium,Total 8.9 mg/dL (8.5-10.1); Chloride 104 mmol/L (98-107); Cholesterol 172 mg/dL (200); Creatinine, Serum 0.75 mg/dL (0.55-1.02); EST Glomerular Filtration Rate 78 mL/min (>60); Est Glom Filt Rate - Afr Amer 94 mL/min (>60); Globulin 3.8 g/dL (2.2-4.2); Glucose 117 mg/dL (74-106); High Density Lipoprotein 78 mg/dL; Protein, Total 7.3 g/dL (6.4-8.2); Sodium Level 140 mmol/L (136-145); Thyroid Stim Hormone (TSH) 2.22 uIU/mL (0.358-3.74); Triglycerides 72 mg/dL; Very Low Density Lipoprotein 14 mg/dL (5-40)
== END ==
PROVIDERS: PCP Student in an Organized Health Care Education/Training Program; Referring Provider Student in an Organized Health Care Education/Training Program; Visit Provider Student in an Organized Health Care Education/Training Program
DX: R60.0 Localized edema (principal); R73.01 Impaired fasting glucose; I48.20 Chronic atrial fibrillation, unspecified; R53.83 Other fatigue; E78.5 Hyperlipidemia, unspecified; E55.9 Vitamin D deficiency, unspecified
CPT/HCPCS: 36415; 80053; 80061; 81001; 82306; 82607; 83036; 84443; 85025

== ENCOUNTER 2020-04-09 12:27 | Emergency (ER) | payer MEDICARE, OTHER, SELFPAY ==
[2019-12-19 13:10] VITALS: BMI 25.2
[2020-04-09 12:28] VITALS: BP 154/82; PULSE 60; RESP 17; TEMP 36.1; O2SAT 97; BMI 26.4
--- NOTE | 2020-04-09 12:45 | CT_ITS ---
STUDY: CT BRAIN WITHOUT CONTRAST REASON FOR EXAM: Female, 84 years old. OLIVEROS X 3 DAYS, HTN RADIATION DOSAGE (If Supplied By Facility): CTDIvol = ( 60.81 ) mGy, DLP = ( 1021.47 ) mGycm TECHNIQUE: Transaxial CT imaging of the brain was performed without administration of intravenous contrast material. Individualized dose optimization techniques were used for this CT. COMPARISON: No relevant priors. FINDINGS: Normal soft tissue structures. Normal calvarium. There is evidence of a right-sided acute on chronic subdural hematoma overlying the right frontal temporal parietal lobes. The greatest transverse dimension measures 1.2 cm. This causes shift of midline from right to left of 1.2 cm. There is compression of the right lateral ventricle. There is dilatation of the left temporal horn. Uncal herniation should be ruled out. Normal basal ganglia and thalami. Normal brainstem. Normal cerebellum. There is also evidence of a small subarachnoid hemorrhage. There are no findings of an acute ischemic infarction. Normal visualized paranasal sinuses. 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 I suspect uncal herniation. There is compression of the right lateral ventricle with dilatation of the left temporal horn. Subarachnoid hemorrhage. N.B. : The above information has been verbally conveyed by Casey Kay to Antony Penn DO on 04/09/2020 13:45:26 (ET). Electronically Signed: Casey Kay, at 13:46 EST , Service support ,
--- NOTE | 2020-04-09 12:45 | EKG12_ITS ---
Test Reason : Blood Pressure : / mmHG Vent. Rate : 062 BPM Atrial Rate : 062 BPM P-R Int : 178 ms QRS Dur : 086 ms QT Int : 450 ms P-R-T Axes : 079 033 055 degrees QTc Int : 456 ms Normal sinus rhythm Normal ECG Confirmed by CALLY FISHER, BLADE ([id number]), editor trade journal GINGER CARLSON ([id number]) on 04/10/2020 10:52:25 AM Referred By: ISMAEL Confirmed By:BLADE ALAMO MD
[2020-04-09 13:03] VITALS: BP 168/68; PULSE 69; RESP 14
--- NOTE | 2020-04-09 13:07 | ED.VISSUMM ---
- ER Visit Summary Date of Service: 04/09/20 Chief Complaint: Headache History of Present Illness: The patient is a 84 F who presents with headache that has been constant for the past 3 days. Patient describes it as throbbing and pounding. Patient states it started in the left occipital area but is now more in the left frontal area. Patient states nothing makes it better or worse. Patient denies any nausea or vomiting. Patient denies any fevers or chills. Patient denies any paresthesias or weakness. Patient denies any visual changes or scotoma. Patient denies any neck or back pain. Patient was seen at an urgent care and was referred here because of her blood pressure being elevated at 200/98 there. Physical Examination: Vital signs are stable. Patient's blood pressure here is 154/82. Patient is afebrile. Patient is in no acute distress. Oral mucosa is pink and moist. Neck is supple. Trachea is midline. There is no JVD. Heart was regular rate and rhythm. Lungs are clear and equal bilaterally. Abdomen is soft. Bowel sounds are normal. There is no tenderness. Cranial nerves II through XII are intact. There are no focal motor or sensory deficits. Test Results: EKG shows normal sinus rhythm with a rate of 62. There are no acute ST or T wave changes. CBC shows platelet count of 135. Comprehensive metabolic profile was essentially within normal limits. PT with INR was obtained. INR was 2.9. PTT was slightly elevated at 38.9. Troponin was normal. CT scan of the brain was obtained. There is cute on chronic subdural hematoma with shift of the midline from right to left of approximately 1.2 cm. There is also subarachnoid hemorrhage. There is compression of the right lateral ventricle and dilation of the left temporal horn. There is suspected uncal herniation. Emergency Department Course and Treatment: Patient was given Reglan and Benadryl for her headache initially. Patient is resting comfortably on reevaluation. Patient was advised of her findings. Patient was given a dose of vitamin K. Patient requested to be transferred to [facility]. Patient was discussed with Dr. Lares, neurosurgeon at [facility]. He agrees the patient needs to be transferred there. He also recommended giving the patient Kcentra. This was ordered. Case was also discussed with the chief transfer and pumphouse operator. Patient will be transferred to [facility]. Disposition: Transfer Impression: 1. Subdural hemorrhage 2. Subarachnoid hemorrhage Critical care time: 45 minutes. This was time spent obtaining history, performing physical examination, documenting, interpreting test results, discussion with consultants, and determining disposition. This note was generated with Gu[employer] dictation software. It may contain incorrect words, spelling, and punctuation that were not noted in review of the chart prior to signing ED Disposition - Plan for ED Patient: Referrals: Larry Fajardo DO [Primary Care Provider] -
[2020-04-09 13:26] LABS: Absolute Lymphocyte Count 1.59 X10^3/uL (0.83-4.51); Absolute Neutrophil Count 7.7 X10^3/uL (2.0-7.7); Basophil# 0.03 X10^3/uL; Basophil% 0.3 % (0-1); Eosinophil# 0.08 X10^3/uL; Eosinophils% 0.8 % (0-5); Hematocrit 41.6 % (37-47); Hemoglobin 13.1 g/dL (12.0-15.0); Lymphocyte # 1.59 X10^3/ul (4.0); Lymphocyte % 16.2 % (19-41); Mean Corp Hgb Conc 31.5 g/dL (32-36); Mean Corpuscular Hgb 29.8 pg (27.0-32.0); Mean Corpuscular Volume 94.5 fL (81-99); Mean Platelet Vol. 12.3 fl (6.2-12.0); Monocyte# 0.39 X10^3/uL; NRBC Flagged by Analyzer 0 % (0-5); Neutrophil # 7.71 X10^3/uL (2.7-7.7); Neutrophil % 78.4 % (47-70); Platelet Count 135 K/mm3 (150-450); RBC Distribution Width CV 12.9 % (11.6-14.6); White Blood Count 9.8 K/mm3 (4.4-11.0)
[2020-04-09 13:33] LABS: International Normalized Ratio 2.9; Prothrombin Time (Protime)PT. 29.7 SECONDS (11.7-14.9)
[2020-04-09 13:34] LABS: Partial Thromboplast Time 38.9 Seconds (24.1-36.2)
[2020-04-09 13:41] LABS: ALB/GLOB Ratio 1.1 RATIO (0.9-2.4); AST(SGOT) 37 U/L (15-37); Alanine Aminotransfer ALT/SGPT 46 U/L (13-56); Albumin, Serum 4.1 g/dL (3.2-5.0); Alkaline Phosphatase 92 U/L (45-117); Anion Gap 3 (5-15); BUN 14 mg/dL (7-18); BUN/Creat Ratio 16.2 RATIO (10-20); Calcium,Total 8.9 mg/dL (8.5-10.1); Chloride 104 mmol/L (98-107); Creatinine, Serum 0.86 mg/dL (0.55-1.02); EST Glomerular Filtration Rate 66 mL/min (>60); Est Glom Filt Rate - Afr Amer 80 mL/min (>60); Globulin 3.8 g/dL (2.2-4.2); Glucose 124 mg/dL (74-106); Protein, Total 7.9 g/dL (6.4-8.2); Sodium Level 136 mmol/L (136-145)
[2020-04-09] MEDS: DiphenhydrAMINE 50 MG/ML Syringe 25 MG IV (13:51)
[2020-04-09] MEDS: Metoclopramide 10 MG/2 ML Vial IV (13:51)
[2020-04-09 14:00] VITALS: BP 154/55; PULSE 66; RESP 18; O2SAT 96
[2020-04-09 14:58] VITALS: BP 162/134; PULSE 68; RESP 18; O2SAT 96
--- NOTE | 2020-04-09 14:59 | ED.RN ---
life flight arrives t bedside. staff obtaining second line and concentra and aqua myphenton hung. pt bp elevating, states headache beginning to become more severe. bp retaken at 162/134 66 18 96. life flight crew aware and to treat
[2020-04-09 15:03] VITALS: BP 162/134; PULSE 66; RESP 18; O2SAT 96
== END 2020-04-09 15:06 | disposition short-term general hospital (02) ==
LOC: ED 12:54
PROVIDERS: Emergency Provider Emergency Medicine; PCP Student in an Organized Health Care Education/Training Program
DX: I60.9 Nontraumatic subarachnoid hemorrhage, unspecified (principal); I62.01 Nontraumatic acute subdural hemorrhage; I62.03 Nontraumatic chronic subdural hemorrhage; I48.91 Unspecified atrial fibrillation; I10 Essential (primary) hypertension; Z79.01 Long term (current) use of anticoagulants; Z79.899 Other long term (current) drug therapy
CPT/HCPCS: 70450; 80053; 84484; 85025; 85610; 85730; 93005; 96365; 96375; 99284; C9132; J7040; A4216; J3490

== ENCOUNTER → 2020-05-29 14:15 | Outpatient (CLI) | payer MEDICARE, OTHER, SELFPAY ==
[2020-05-29 15:44] LABS: Absolute Lymphocyte Count 2.52 X10^3/uL (0.83-4.51); Absolute Neutrophil Count 3.6 X10^3/uL (2.0-7.7); Basophil# 0.04 X10^3/uL; Basophil% 0.6 % (0-1); Hematocrit 39.1 % (37-47); Hemoglobin 12.4 g/dL (12.0-15.0); Lymphocyte # 2.52 X10^3/ul (4.0); Lymphocyte % 37.2 % (19-41); Mean Corp Hgb Conc 31.7 g/dL (32-36); Mean Corpuscular Hgb 29.5 pg (27.0-32.0); Mean Corpuscular Volume 93.1 fL (81-99); Mean Platelet Vol. 12.4 fl (6.2-12.0); Monocyte# 0.38 X10^3/uL; Monocyte% 5.6 % (0-10); NRBC Flagged by Analyzer 0 % (0-5); Neutrophil # 3.62 X10^3/uL (2.7-7.7); Neutrophil % 53.5 % (47-70); Platelet Count 163 K/mm3 (150-450); RBC Distribution Width SD 44.5 fl (35.1-43.9); White Blood Count 6.8 K/mm3 (4.4-11.0)
[2020-05-29 16:08] LABS: BUN 17 mg/dL (7-18); Creatinine, Serum 0.72 mg/dL (0.55-1.02); EST Glomerular Filtration Rate 82 mL/min (>60); Est Glom Filt Rate - Afr Amer 99 mL/min (>60)
== END ==
PROVIDERS: PCP Student in an Organized Health Care Education/Training Program; Referring Provider Psychiatry & Neurology Neurology; Visit Provider Psychiatry & Neurology Neurology
DX: H53.451 Other localized visual field defect, right eye (principal); I48.11 Longstanding persistent atrial fibrillation
CPT/HCPCS: 36415; 82565; 84520; 85025

== ENCOUNTER 2020-06-10 11:00 | Outpatient (RCR) | payer MEDICARE, OTHER, SELFPAY ==
--- NOTE | 2020-06-03 11:20 | HP.PTEVAL ---
Patient's Visit Information MARTINE KERN is a 84 year old F referred to Physical Therapy by Dr. Carlos Cameron MD with a diagnosis of SDH. Date of Evaluation: 06/03/20 Physical Therapist: Antony Taylor, KIMOT, OCS, CSCS - Visit Plan Frequency: 1-2x /Week Duration: 4-6 Weeks Plan: 1-2x/week for 4-6 weeks for. 1. progression of adaptation and habituation if needed. 2. Work on balance and strength if needed/desired by patient after feeling wella gain. - Subjective Had a brain bleed Nov and life flighted to [email or web address]. May have bumped head but memory is poor. Bad OLIVEROS and drove to urgent care. In hospital 3 days and had blood drained. No other treatment required. F/U with outpatient neuro and sent for therapy as she is feels unsteady and feels a little motion. No spinning. No neuropathy. No falls. No AD needed. Sleep is normal for her but not great. Gets goofy feeling in head when lies down for 30 minutes. Sometimes gets OLIVEROS at night posteriorly. Lives alone,d riving [place]. Basic ADLs are getting done OK. Not employed. Hobbies: golf in summer, [facility] [employer], got back to that this past week for stretch class but not aerobics. [place] tired after stretch class but not problematic or symptomatic. - Objective Walks slow but steady today. Transfers I bed and chair. steps reciprocal requiring one rail for safety. Avoids head movement if she can when walking. Walking VOR is slightly unsteady and misses most points on FGA for head mvoement. Cervical aROM WFL. LE AROM and strength 4-/5 and functional. reflexes 2/3 patella and achilles. Sensation LE WNL to gross light touch. Positional:- - B hallpike christen. Ocuomotor: no nystagmus with gaze or head shake. - ocuar tilt and - skew eye deviation. Pursuit and saccades are normal and asymptomatic. VOR is symptomatic horizontally 3/10 for 10 seconds after 30 seconds. Asymptomatic vertically for 30 seconds today. - Balance Scores Functional Gait Assessment Score: 25 % Disability: 16.6700 CATSIB Score (Max score 120 seconds): 120 - Goals Goal 1:: Feel 100% back to normal in head and steadiness Goal Time Frame: 4-6 Weeks Goal 2:: Able to walk with VOR normally and score 27/30 on FGA Goal Time Frame: 4-6 Weeks Goal 3:: Resume all normal activities at home including aerobics and reading without symptoms. Goal Time Frame: 4-6 Weeks - Rehabilitation Potential Physical Therapy Diagnosis: unsteady adn dizzy form TBI/ SDH Rehabilitation Potential: Good - Anticipated Interventions Patient/Client Instruction: Educate patient on: Condition, Plan of Care For the Purpose of:: To increase tolerance to activity/condition/position, To improve ability of physical actions for home/community/work/leisure Therapeutic Exercise to Include: Strength training, Balance training Comment: adaptation adn habituation For the Purpose of:: To improve muscle performance and motor function, To increase tolerance to activity/condition/position, To improve performance and independence with ADL's, To improve ability of physical actions for home/community/work/leisure Thank you for the opportunity to evaluate your patient. For Medicare and Medicare HMO plans, please review the plan of care and approve it. It will need to be FAXED BACK to us at [phone] for Medicare purposes. For Medicare only, by signing this I certify the plan of care. Please let me know if there are questions or concerns regarding this plan of care. Physician Signature: Date:
--- NOTE | 2020-06-10 11:21 | HP.PTDCSUM ---
It has been my pleasure to treat MARTINE KERN referred by Dr. Carlos Cameron MD, with the diagnosis of SDH for a total of 2 visit(s). Discharge Date: 06/10/20 Please see the following information for a summary of their discharge status. Subjective: I did my exercises. They make her a little dizzy but got better the more she did them. This is probably the best week she has had, no real dizzyness for long adn balance feels better. No OLIVEROS. Reading is going well. % Improvement: 100 Objective/Function: FGA +3 today adn subjectively doing well with balance, OLIVEROS, reading adn sactivities. VOR 60 seconds gives 2/10 dizzyness for 1-2 seconds. Mild and transient. Overall much better adn wishes to be done with PT which is appropriate based on presentation today. Goal 1:: Feel 100% back to normal in head and steadiness Goal Progress: Goal Met Goal 2:: Able to walk with VOR normally and score 27/30 on FGA Goal Progress: Goal Met Goal 3:: Resume all normal activities at home including aerobics and reading without symptoms. Goal Progress: Goal Met Plan: 1-2x/week for 4-6 weeks for. 1. progression of adaptation and habituation if needed. 2. Work on balance and strength if needed/desired by patient after feeling wella gain. Discharge Comments: Pt doing well with activities and symptoms. Will f/u with doctor in two weeks and call prior if symptoms come back If there are questions or concerns regarding this patient's physical therapy, please feel free to call me at [phone]. Thank you for the referral of this patient. Sincerely, Antony Taylor, DPT, OCS, CSCS
== END 2020-06-10 19:00 | disposition home or self-care (01) ==
LOC: PT 11:00
PROVIDERS: PCP Student in an Organized Health Care Education/Training Program; Referring Provider Psychiatry & Neurology Neurology; Visit Provider Psychiatry & Neurology Neurology
DX: S06.5X9D Traumatic subdural hemorrhage with loss of consciousness of unspecified duration, subsequent encounter (principal)
CPT/HCPCS: 97110; 97162; 97530

== ENCOUNTER 2020-06-11 11:00 | Outpatient (RCR) | payer MEDICARE, OTHER, SELFPAY | END 2020-06-11 23:59 | LOC: IMMUN 11:00 | PROVIDERS: PCP Student in an Organized Health Care Education/Training Program; Visit Provider Family Medicine | DX: Z23 Encounter for immunization (principal) | CPT/HCPCS: 0011A; 0012A; 91301 ==

== ENCOUNTER → 2020-06-12 16:06 | Outpatient (CLI) | payer MEDICARE, OTHER, SELFPAY ==
--- NOTE | 2020-06-12 16:22 | MRI_ITS ---
STUDY: MRI BRAIN WITHOUT CONTRAST REASON FOR EXAM: Female, 84 years old. History of subdural hematoma, bleed vision loss in the right eye TECHNIQUE: Standardized multiplanar fat and water weighted pulse sequences were obtained. COMPARISON: 09 April 2020 FINDINGS: Brain parenchyma is intact without focal lesions, mass effect, extra parenchymal fluid collections, hydrocephalus or herniation. Major vascular flow structures are intact. Craniocervical junction is unremarkable. There is a right parietal jason hole. MRI/Brain without Contrast IMPRESSION: 1. Unremarkable brain MRI. 2. No acute hemorrhage or hemorrhagic collections. Electronically Signed: Kishore Camacho MD at 17:08 EST Tel , Service support ,
== END ==
PROVIDERS: PCP Student in an Organized Health Care Education/Training Program; Referring Provider Psychiatry & Neurology Neurology; Visit Provider Psychiatry & Neurology Neurology
DX: H53.451 Other localized visual field defect, right eye (principal); S06.5X9D Traumatic subdural hemorrhage with loss of consciousness of unspecified duration, subsequent encounter; X58.XXXD Exposure to other specified factors, subsequent encounter
CPT/HCPCS: 70551

== ENCOUNTER → 2020-11-02 11:42 | Outpatient (CLI) | payer MEDICARE, OTHER, SELFPAY ==
[2020-11-02 15:49] LABS: Hematocrit 40.3 % (37-47); Mean Corp Hgb Conc 32.3 g/dL (32-36); Mean Corpuscular Hgb 29.3 pg (27.0-32.0); Mean Platelet Vol. 13.2 fl (6.2-12.0); Platelet Count 143 K/mm3 (150-450); RBC Distribution Width CV 13.1 % (11.6-14.6); RBC Distribution Width SD 43.8 fl (35.1-43.9); Red Blood Count 4.43 M/mm3 (4.2-5.4)
== END ==
PROVIDERS: PCP Student in an Organized Health Care Education/Training Program; Referring Provider Psychiatry & Neurology Neurology; Visit Provider Psychiatry & Neurology Neurology
DX: I48.11 Longstanding persistent atrial fibrillation (principal)
CPT/HCPCS: 36415; 85027

== ENCOUNTER 2021-06-10 08:57 | Outpatient (CLI) | payer MEDICARE, OTHER, SELFPAY ==
[2021-06-10 10:05] LABS: Color, Urine Yellow (Yellow); Glucose, Dipstick Normal (Normal); Ketone-Dipstick Negative (Negative); Leukocyte Esterase-Dipstick 25 /ul (Negative); Nitrite-Dipstick Negative (Negative); Occult Blood-Urine Negative /ul (Negative); Protein-Dipstick Negative (Negative); Specific Gravity, Urine 1.015 (1.002-1.030); Urine Bilirubin Dipstick Negative (Negative); Urine Clarity Sl. Cloudy (Clear); Urine Urobilinogen Normal (Normal)
[2021-06-10 10:06] LABS: Absolute Lymphocyte Count 2.22 X10^3/uL (0.83-4.51); Absolute Neutrophil Count 3.5 X10^3/uL (2.0-7.7); Basophil# 0.03 X10^3/uL; Basophil% 0.5 % (0-1); Eosinophil# 0.18 X10^3/uL; Eosinophils% 2.8 % (0-5); Hematocrit 38.9 % (37-47); Hemoglobin 12.7 g/dL (12.0-15.0); Lymphocyte # 2.22 X10^3/ul (0.83-4.51); Lymphocyte % 34.1 % (19-41); Mean Corp Hgb Conc 32.6 g/dL (32-36); Mean Corpuscular Hgb 29.7 pg (27.0-32.0); Mean Corpuscular Volume 91.1 fL (81-99); Mean Platelet Vol. 12.6 fl (6.2-12.0); Monocyte# 0.54 X10^3/uL; Monocyte% 8.3 % (0-10); NRBC Flagged by Analyzer 0 % (0-5); Neutrophil # 3.53 X10^3/uL (2.7-7.7); Neutrophil % 54.1 % (47-70); Platelet Count 144 K/mm3 (150-450); RBC Distribution Width CV 13.4 % (11.6-14.6); RBC Distribution Width SD 44.8 fl (35.1-43.9); Red Blood Count 4.27 M/mm3 (4.2-5.4); White Blood Count 6.5 K/mm3 (4.4-11.0)
[2021-06-10 10:11] LABS: Bacteria RARE /hpf (None Seen); Mucous, Urine RARE /hpf (<or=2+); Red Blood Cells-Urine 0-5 SEEN /hpf (0-5); Squamous Epithelial Cells - UA 0-5 SEEN /hpf (5-10); White Blood Cells 0-5 SEEN /hpf (0-5)
[2021-06-10 10:30] LABS: Vitamin D,25 Hydroxy 28.6 ng/mL
[2021-06-10 10:37] LABS: Hemoglobin A1c 6.4 % (3.8-5.6)
[2021-06-10 11:07] LABS: ALB/GLOB Ratio 0.9 RATIO (0.9-2.4); AST(SGOT) 22 U/L (15-37); Alanine Aminotransfer ALT/SGPT 26 U/L (13-56); Albumin, Serum 3.5 g/dL (3.2-5.0); Alkaline Phosphatase 84 U/L (45-117); Anion Gap 4 (5-15); BUN 21 mg/dL (7-18); BUN/Creat Ratio 29.7 RATIO (10-20); Chloride 109 mmol/L (98-107); Creatinine, Serum 0.71 mg/dL (0.55-1.02); EST Glomerular Filtration Rate 84 mL/min (>60); Est Glom Filt Rate - Afr Amer 101 mL/min (>60); Globulin 3.8 g/dL (2.2-4.2); Glucose 118 mg/dL (74-106); Potassium 3.9 mmol/L (3.5-5.1); Protein, Total 7.3 g/dL (6.4-8.2); Sodium Level 141 mmol/L (136-145)
[2021-06-10 11:07] LABS: Cholesterol 155 mg/dL (200); High Density Lipoprotein 81 mg/dL; Triglycerides 60 mg/dL; Very Low Density Lipoprotein 12 mg/dL (5-40)
== END 2021-06-10 23:59 | disposition short-term general hospital (02) ==
PROVIDERS: PCP Student in an Organized Health Care Education/Training Program; Referring Provider Physician Assistant Medical; Visit Provider Physician Assistant Medical
DX: E78.5 Hyperlipidemia, unspecified (principal); E11.9 Type 2 diabetes mellitus without complications; E55.9 Vitamin D deficiency, unspecified; N39.0 Urinary tract infection, site not specified
CPT/HCPCS: 36415; 80053; 80061; 81001; 82306; 83036; 85025; 87077; 87086; 87088; 87186

== ENCOUNTER 2021-07-26 17:12 | Emergency (ER) | payer MEDICARE, OTHER, SELFPAY ==
[2021-07-26 17:13] VITALS: BP 168/83; PULSE 97; RESP 16; TEMP 36; O2SAT 99; BMI 26.1
--- NOTE | 2021-07-26 17:50 | EDS_ITS ---
HPI History of Present Illness Chief Complaint: Nausea/Vomiting/Diarrhea Informant: patient Narrative Narrative: Vomiting and diarrhea since 7 AM this morning. Already awake. No abdominal pain. Diarrhea started first. Too many to count watery nonbloody. Total of 3 emesis last time prior to arrival. No hematemesis. Denies recent antibiotics. States ate supper yesterday did not taste bad. No other sick contacts. No fevers. No urinary symptoms. On warfarin history of paroxysmal A. fib. States had a subdural hematoma over a year ago. Last INR check 2 weeks ago state was normal. [facility] Medical History Abnormal EKG Hyperlipidemia Insomnia Interstitial lung disease Paroxysmal atrial fibrillation Subdural hematoma (04/09/20) Home Medications metoprolol tartrate 25 mg tablet 12.5 mg PO DAILY tab 05/28/19 [History Last Taken Unknown] zolpidem 5 mg tablet 5 mg PO QHS PRN 05/28/19 [History Last Taken Unknown] cholecalciferol (vitamin D3) 25 mcg (1,000 unit) capsule 25 mcg PO DAILY 12/02/20 [History Last Taken Unknown] flecainide 50 mg tablet 25 mg PO Q12H #90 tab 03/23/21 [Rx Last Taken Unknown] atorvastatin 20 mg tablet 20 mg PO QHS #90 tab 06/04/21 [Rx Last Taken Unknown] magnesium oxide 400 mg (241.3 mg magnesium) tablet 400 mg PO DAILY 06/04/21 [History Last Taken Unknown] mecobalamin (vitamin B12) 1,000 mcg chewable tablet 1,000 mcg PO DAILY 06/04/21 [History Last Taken Unknown] warfarin 5 mg tablet 5 mg PO QMWF 06/04/21 [History Last Taken Unknown] ondansetron 4 mg PO Q6H PRN #10 tab 07/26/21 [Rx Last Taken Unknown] Allergy/AdvReac Type Severity Reaction Status Date / Time Iodine and Iodide Containing Allergy hives Verified 07/26/21 17:14 Produc Family History Sister Colon cancer Cancer lung Sister Colon cancer Sister Colon cancer Sister Colon cancer Mother Hypertension Other Heart disease Surgical History History of jason hole surgery (03/2020) History of cataract surgery History of hysterectomy History of lumbar laminectomy Social History Smoking Status: Never smoker EXAM Physical Exam Const Vital Signs: 07/26/21 17:13 07/26/21 18:56 07/26/21 19:11 Temperature 96.8 F L 97.7 F L Temperature Source Temporal Oral Pulse Rate 97 92 Respiratory Rate 16 16 Blood Pressure 168/83 H 164/78 H Blood Pressure Mean 111 106 Pulse Ox 99 100 Oxygen Delivery Method Room Air Room Air Positive well nourished and well developed General Appearance ED: well developed and NAD HEENT Reports dry mucous membranes normocephalic and atraumatic Mouth ED: Yes dry mucous membranes Mouth: dry mucous membranes Eyes PERRL, EOMs intact bilaterally and conjunctivae normal General Eye ED: Yes normal appearance of both eyes Neck no lymphadenopathy and supple General: Negative for tenderness Chest Wall Chest: Negative for tenderness Resp normal respiratory effort and normal air movement Effort and Inspection: symmetric chest movement; Negative for respiratory distress Cardio regular rate, regular rhythm and no murmurs Peripheral Pulses: pulses 2+ throughout GI normal to inspection, nondistended, normoactive bowel sounds and non-tender Palpation: Negative for guarding or rebound tenderness present Back/Spine no CVA tenderness and no thoracic nor lumbar tenderness Extremity normal to inspection General Extremety ED: Negative for edema or tenderness General Extremity: Negative for edema Neuro oriented x3 and no sensory deficits noted Sensorium / Orientation: awake and alert Skin no rashes or lesions noted and no wounds MDM MDM MDM Narrative Medical decision making narrative: Vital stable and slight dry mucosal membranes. Denies any heart failure history with her A. fib. Will check abdominal labs will give IV fluids and Zofran. Will attempt to obtain stool studies. Abdominal labs are all normal INR slightly subtherapeutic 1.8. Reevaluation no nausea there is been no emesis or no diarrhea however complaints of chills. No fevers. She denies cough or urine symptoms. She was given Tylenol monitor improving she is tolerating oral intake. Discussed unable to give any stool samples on reevaluation. Discussed likely viral syndrome with the patient. Prescription of Zofran written, discussed continue oral hydration. Return precautions discussed. Lab Data Attestation: I reviewed the patient's lab results. Labs: Laboratory Results - last 24 hr 07/26/21 07/26/21 07/26/21 17:49 17:49 17:49 WBC 9.8 RBC 4.65 Hgb 14.3 Hct 43.0 MCV 92.5 MCH 30.8 MCHC 33.3 RDW Std Deviation 42.9 RDW Coeff of Rodolfo 12.7 Plt Count 174 MPV 12.3 H Immature Gran % (Auto) 0.200 Neut % (Auto) 88.6 H Lymph % (Auto) 5.6 L [place] % (Auto) 5.5 Eos % (Auto) 0.0 Baso % (Auto) 0.1 Absolute Neuts (auto) 8.7 H Absolute Lymphs (auto) 0.55 L Nucleated RBC % 0 Differential Comment SCANNED PT 20.0 H INR 1.8 Sodium 139 Potassium 4.4 Chloride 105 Carbon Dioxide 26.0 Anion Gap 8 BUN 22 H Creatinine 0.88 Estim Creat Clear Calc 43.75 Est GFR (MDRD) Af Amer 79 Est GFR (MDRD) Non-Af 65 BUN/Creatinine Ratio 25.1 H Glucose 188 H Calcium 9.5 Total Bilirubin 0.60 AST 16 ALT 28 Alkaline Phosphatase 96 Total Protein 8.4 H Albumin 3.9 Globulin 4.5 H Albumin/Globulin Ratio 0.9 Lipase 51 L Discharge Plan Triage Chief Complaint: Nausea/Vomiting/Diarrhea ED Provider: Casa Collins Dx/Rx/DC Orders Clinical Impression: Nausea, vomiting and diarrhea Instructions: ED Diet for Vomiting or ..., ED Gastroenteritis, Viral (Adult) Prescriptions: New ondansetron 4 mg tablet,disintegrating 4 mg PO Q6H PRN (Reason: nausea and vomiting) Qty: 10 RF: 0 No Action zolpidem [Ambien] 5 mg tablet 5 mg PO QHS PRN (Reason: Sleep) RF: 0 metoprolol tartrate 25 mg tablet 12.5 mg PO DAILY RF: 0 cholecalciferol (vitamin D3) 25 mcg (1,000 unit) capsule 25 mcg PO DAILY RF: 0 mecobalamin (vitamin B12) 1,000 mcg tablet,chewable 1,000 mcg PO DAILY RF: 0 magnesium oxide 400 mg (241.3 mg magnesium) tablet 400 mg PO DAILY RF: 0 warfarin 5 mg tablet 5 mg PO QMWF RF: 0 atorvastatin 20 mg tablet 20 mg PO QHS Qty: 90 RF: 3 flecainide 50 mg tablet 25 mg PO Q12H Qty: 90 RF: 3 Primary Care Provider: Larry Fajardo Referrals: Larry Fajardo DO [Primary Care Provider] - 3-5 Days if not improving Disposition Disposition: Home, Self Care Discharge Date/Time: 07/26/21 21:14
[2021-07-26] MEDS: Ondansetron 4 MG/2 ML Vial IV (18:04)
[2021-07-26] MEDS: 0.9% Normal Saline 1,000 ML 1000 ML IV (18:04)
[2021-07-26 18:06] LABS: Absolute Lymphocyte Count 0.55 X10^3/uL (0.83-4.51); Absolute Neutrophil Count 8.7 X10^3/uL (2.0-7.7); Basophil# 0.01 X10^3/uL; Basophil% 0.1 % (0-1); Hemoglobin 14.3 g/dL (12.0-15.0); Lymphocyte # 0.55 X10^3/ul (0.83-4.51); Lymphocyte % 5.6 % (19-41); Mean Corp Hgb Conc 33.3 g/dL (32-36); Mean Corpuscular Hgb 30.8 pg (27.0-32.0); Mean Corpuscular Volume 92.5 fL (81-99); Mean Platelet Vol. 12.3 fl (6.2-12.0); Monocyte# 0.54 X10^3/uL; Monocyte% 5.5 % (0-10); NRBC Flagged by Analyzer 0 % (0-5); Neutrophil % 88.6 % (47-70); POSITIVE DIFFERENTIAL YES; Platelet Count 174 K/mm3 (150-450); RBC Distribution Width CV 12.7 % (11.6-14.6); RBC Distribution Width SD 42.9 fl (35.1-43.9); Red Blood Count 4.65 M/mm3 (4.2-5.4); White Blood Count 9.8 K/mm3 (4.4-11.0)
[2021-07-26 18:09] LABS: Differential Indicated SCAN CRITERIA MET
[2021-07-26 18:11] LABS: International Normalized Ratio 1.8
[2021-07-26 18:27] LABS: ALB/GLOB Ratio 0.9 RATIO (0.9-2.4); AST(SGOT) 16 U/L (15-37); Alanine Aminotransfer ALT/SGPT 28 U/L (13-56); Albumin, Serum 3.9 g/dL (3.2-5.0); Alkaline Phosphatase 96 U/L (45-117); Anion Gap 8 (5-15); BUN 22 mg/dL (7-18); BUN/Creat Ratio 25.1 RATIO (10-20); Calcium,Total 9.5 mg/dL (8.5-10.1); Chloride 105 mmol/L (98-107); Creatinine, Serum 0.88 mg/dL (0.55-1.02); EST Glomerular Filtration Rate 65 mL/min (>60); Est Glom Filt Rate - Afr Amer 79 mL/min (>60); Estimated Creatinine Clearance 43.75 ml/min; Globulin 4.5 g/dL (2.2-4.2); Glucose 188 mg/dL (74-106); Lipase 51 U/L (73-393); Potassium 4.4 mmol/L (3.5-5.1); Protein, Total 8.4 g/dL (6.4-8.2); Sodium Level 139 mmol/L (136-145)
[2021-07-26 18:34] LABS: Differential Comment SCANNED
[2021-07-26 18:56] VITALS: BP 164/78; PULSE 92; RESP 16; O2SAT 100
[2021-07-26] MEDS: Acetaminophen 500 MG Tablet 1000 MG PO (19:10)
[2021-07-26 19:11] VITALS: TEMP 36.5
== END 2021-07-26 21:14 | disposition home or self-care (01) ==
PROVIDERS: Emergency Provider Emergency Medicine; PCP Student in an Organized Health Care Education/Training Program; Visit Provider Emergency Medicine
DX: R11.2 Nausea with vomiting, unspecified (principal); I48.0 Paroxysmal atrial fibrillation; R19.7 Diarrhea, unspecified; E78.5 Hyperlipidemia, unspecified; R68.83 Chills (without fever); Z79.01 Long term (current) use of anticoagulants; Z79.899 Other long term (current) drug therapy
CPT/HCPCS: 80053; 83690; 85025; 85610; 96361; 96374; 99283; J7030; A4216; J2405

== ENCOUNTER 2021-07-29 10:12 | Emergency (ER) | payer MEDICARE, OTHER, SELFPAY ==
[2021-07-29 10:14] VITALS: BP 152/64; PULSE 67; RESP 16; TEMP 37.1; O2SAT 99; BMI 26.9
--- NOTE | 2021-07-29 10:29 | CT_ITS ---
STUDY: CT BRAIN WITHOUT CONTRAST REASON FOR EXAM: Female, 86 years old. Dizziness. History of subdural hematoma and subarachnoid hemorrhage in March 2020. RADIATION DOSAGE (If Supplied By Facility): CTDIvol = ( 44.99 ) mGy, DLP = ( 762.36 ) mGycm TECHNIQUE: Transaxial CT imaging of the brain was performed without administration of intravenous contrast material. Individualized dose optimization techniques were used for this CT. COMPARISON: Comparison is made with prior examination dated 04/09/2020. FINDINGS: Normal soft tissue structures. The patient is status post right frontal temporal jason holes. Normal size ventricles and extra-axial spaces for the patient''s age. Normal white matter tracts of the cerebral hemispheres. Normal basal ganglia and thalami. Normal brainstem. Normal cerebellum. There is no intracranial hemorrhage. There are no findings of an acute ischemic infarction. Mucosal thickening along the posterior aspect of the inferior right maxillary sinus. CT/Brain/Head without Contrast IMPRESSION: No acute abnormality is seen. Electronically Signed: Casey Kay MD at 11:09 EST ,
--- NOTE | 2021-07-29 10:29 | EKG12_ITS ---
Test Reason : NAUSEA/VOMITING Blood Pressure : / mmHG Vent. Rate : 068 BPM Atrial Rate : 068 BPM P-R Int : 182 ms QRS Dur : 088 ms QT Int : 416 ms P-R-T Axes : 051 024 041 degrees QTc Int : 442 ms Normal sinus rhythm Normal ECG Confirmed by CALLY FISHER, BLADE ([id number]), editorial cartoonist GINGER CARLSON ([id number]) on 07/30/2021 9:19:48 AM Referred By: MARC Confirmed By:BLADE ALAMO MD
--- NOTE | 2021-07-29 10:29 | RAD_ITS ---
STUDY: X-RAY CHEST REASON FOR EXAM: Female, 86 years old. Weakness TECHNIQUE: Single AP portable view of the chest. COMPARISON: None. FINDINGS: EKG electrodes are seen. Hyperinflation. Increased interstitial markings in the upper lobes more prominent in the right upper lobe suggestive of chronic scarring. Mild increased interstitial markings at the lung bases slightly worse on the right side. This may represent scarring with possible atelectasis and/or infiltrate superimposed at the right lung base. There is no demonstrated pleural abnormality. Normal size heart. Normal mediastinum and [place]. Normal visualized pulmonary arteries. There is atherosclerotic calcification of the aortic arch with tortuosity. There are diffuse degenerative changes of the visualized thoracic spine. Normal visualized ribs, clavicles, and shoulders. There is no demonstrated abnormality of the visualized soft tissue structures of the upper abdomen. RAD/Chest 1 View (Portable) IMPRESSION: Findings suggestive of a pulmonary scarring worse in the right hemithorax with possible atelectasis and/or infiltrate superimposed at the right lung base. Electronically Signed: Casey Kay MD at 11:19 EST ,
--- NOTE | 2021-07-29 10:34 | EDS_ITS ---
HPI History of Present Illness Chief Complaint: Nausea/Vomiting Narrative Narrative: 86-year-old female with PMH of HLD, Mar[place]. fib presents with vertigo. On 06/28 she had vomiting and diarrhea and was seen in the ED here and told she likely had a viral illness and was prescribed Zofran. The next few days she had diarrhea but was feeling improved. Today around 8:30 AM she sat up from bed and had sudden onset room spinning. This has continued intermittently and is worse with movement of her head or walking. She had approximately 4 episodes of nonbloody diarrhea today as well. She took Zofran and had no further vomiting. Denies cardiac or respiratory symptoms. Denies vision changes, speech changes, or focal motor or sensory changes. No history of stroke/TIA. She takes Coumadin and flecainide for A. fib. She does have a history of traumatic brain bleed. [facility] Medical History Abnormal EKG Hyperlipidemia Insomnia Interstitial lung disease Paroxysmal atrial fibrillation Subdural hematoma (04/09/20) Home Medications metoprolol tartrate 25 mg tablet 12.5 mg PO DAILY tab 05/28/19 [History Last Taken Unknown] zolpidem 5 mg tablet 5 mg PO QHS PRN 05/28/19 [History Last Taken Unknown] cholecalciferol (vitamin D3) 25 mcg (1,000 unit) capsule 25 mcg PO DAILY 12/02/20 [History Last Taken Unknown] flecainide 50 mg tablet 25 mg PO Q12H #90 tab 03/23/21 [Rx Last Taken Unknown] atorvastatin 20 mg tablet 20 mg PO QHS #90 tab 06/04/21 [Rx Last Taken Unknown] magnesium oxide 400 mg (241.3 mg magnesium) tablet 400 mg PO DAILY 06/04/21 [History Last Taken Unknown] mecobalamin (vitamin B12) 1,000 mcg chewable tablet 1,000 mcg PO DAILY 06/04/21 [History Last Taken Unknown] warfarin 5 mg tablet 5 mg PO QMWF 06/04/21 [History Last Taken Unknown] ondansetron 4 mg PO Q6H PRN #10 tab 07/26/21 [Rx Last Taken Unknown] diazepam [Valium] 2 mg PO BID PRN 3 Days #9 tab 03/10/22 [Rx Last Taken Unknown] meclizine 25 mg PO 4X/DAY PRN PRN #20 tab 07/29/21 [Rx Last Taken Unknown] promethazine 12.5 mg PO Q6H PRN 3 Days #12 tab 07/29/21 [Rx Last Taken Unknown] Allergy/AdvReac Type Severity Reaction Status Date / Time Iodine and Iodide Containing Allergy hives Verified 07/26/21 17:14 Produc Family History Sister Colon cancer Cancer lung Sister Colon cancer Sister Colon cancer Sister Colon cancer Mother Hypertension Other Heart disease Surgical History History of jason hole surgery (03/2020) History of cataract surgery History of hysterectomy History of lumbar laminectomy Social History Smoking Status: Never smoker ROS ROS ED ROS Narrative Constitutional: Negative for fever, chills, malaise. Eyes: Negative for visual change. ENT: Negative for sore throat, ear pain, rhinorrhea. CVS: Negative for palpitations, chest pain, syncope. Respiratory: Negative for shortness of breath, cough, orthopnea. GI:Positive for nausea, diarrhea. Negative for abdominal pain, nausea, vomiting, constipation, melena, hematochezia. : Negative for dysuria, hematuria or frequency. Neuro: Negative for headache, motor/sensory dysfunction. Skin: Negative for rash, abscess, or wound. Musc: Negative for joint pain, swelling, trauma. Heme: Negative for easy bruising, bleeding, lymphadenopathy. EXAM Physical Exam Narrative Exam Narrative: CONST: Patient sitting in no acute distress. EYES: Normal inspection. PERRLA, EOMI. 1-2 beats of horizontal nystagmus present. ENT: Normal inspection, sliughtly dry mucous membranes. NECK: Normal inspection. RESP: No respiratory distress, CTAB. CVS: Regular rate and rhythm, no murmur, no gallop. ABD: Soft and nontender, no guarding or rebound, nondistended. Back: Normal inspection. SKIN: Color normal, no rash, warm, dry, intact. EXTREMITIES: Normal appearance, no pedal edema. 2+ radial and dorsalis pedis pulses NEURO: Oriented x4. No upper or lower extremity drift, 5/5 strength and normal sensation, normal [id number] and [id number]. PSYCH: Normal affect. Const Vital Signs: 07/29/21 10:14 07/29/21 11:52 Temperature 98.8 F Temperature Source Oral Pulse Rate 67 70 Respiratory Rate 16 16 Blood Pressure 152/64 H 143/54 H Blood Pressure Mean 93 83 Pulse Ox 99 97 Oxygen Delivery Method Room Air Room Air MDM MDM MDM Narrative Medical decision making narrative: Patient was had acute diarrhea this week and today presents with vertigo triggered by movement. She appears well and nontoxic. Afebrile and vital signs within normal limits. On exam she has horizontal nystagmus and reproducible vertigo with any head movement. Her symptoms are better at rest with closing her eyes. She has an otherwise normal neurological exam with NIH of 0. Heart is regular rate and rhythm. Lungs clear to auscultation. Abdomen soft and nontender. Labs remarkable for supratherapeutic INR 4.7 and mild hypokalemia of 3.3. EKG is NSR with no ischemia and troponin WNL. Chest x-ray is negative. CT brain shows no acute process. Patient did have clinical improvement after IV fluids, Zofran, meclizine and Valium. She was able to ambulate to the bathroom. Her symptoms are most consistent with BPPV. I will prescribe Phenergan, meclizine, and Valium for home as well as an ENT referral. She was counseled to hold her Coumadin for 2 days and call her PCP for further dosing instructions. She was agreeable with this plan and discharged in stable condition. 1. BPPV 2. Supratherapeutic INR Lab Data Labs: Laboratory Results - last 24 hr 07/29/21 07/29/21 07/29/21 10:04 10:04 10:04 WBC 5.2 RBC 4.37 Hgb 13.3 Hct 40.4 MCV 92.4 MCH 30.4 MCHC 32.9 RDW Std Deviation 43.9 RDW Coeff of Rodolfo 13.0 Plt Count 115 L MPV 12.4 H Immature Gran % (Auto) 0.000 Neut % (Auto) 50.5 Lymph % (Auto) 33.1 [place] % (Auto) 16.2 H Eos % (Auto) 0.0 Baso % (Auto) 0.2 Absolute Neuts (auto) 2.6 Absolute Lymphs (auto) 1.71 Nucleated RBC % 0 PT 43.3 H INR 4.7 H* Sodium 138 Potassium 3.3 L Chloride 109 H Carbon Dioxide 24.0 Anion Gap 5 BUN 10 Creatinine 0.80 Estim Creat Clear Calc 48.13 Est GFR (MDRD) Af Amer 88 Est GFR (MDRD) Non-Af 73 BUN/Creatinine Ratio 12.6 Glucose 138 H Calcium 8.4 L Total Bilirubin 0.30 AST 32 ALT 27 Alkaline Phosphatase 79 Troponin I High Sens 12 Total Protein 7.1 Albumin 3.2 Globulin 3.9 Albumin/Globulin Ratio 0.8 L Radiography Chest X-Ray - ED: 1 View, Read by ED Physician, Read by Radiologist, Normal, Heart, Lungs, Mediastinum, Bony Structures and No Acute Disease Diagnostic Testing: Clinical Impression(s) from Imaging Studies Brain CT 07/29/21 10:29 IMPRESSION: No acute abnormality is seen. Electronically Signed: Casey Kay MD at 11:09 EST , Chest X-Ray 07/29/21 10:29 IMPRESSION: Findings suggestive of a pulmonary scarring worse in the right hemithorax with possible atelectasis and/or infiltrate superimposed at the right lung base. Electronically Signed: Casey Kay MD at 11:19 EST , ED attending interpretation shows normal heart size, pulmonary scarring with no acute infiltrate. EKG Initial EKG: Attestation: I personally reviewed and interpreted this EKG as follows: Interpretation: Sinus Rhythm and No Acute Injury Pattern Discharge Plan Triage Chief Complaint: Nausea/Vomiting ED Provider: Wilma Hahn Dx/Rx/DC Orders Clinical Impression: Benign paroxysmal positional vertigo Instructions: BPPV Prescriptions: New meclizine 25 mg tablet 25 mg PO 4X/DAY PRN PRN (Reason: Dizziness) Qty: 20 RF: 0 diazepam [Valium] 2 mg tablet 2 mg PO BID PRN (Reason: vertigo) 3 Days Qty: 9 RF: 0 promethazine 12.5 mg tablet 12.5 mg PO Q6H PRN (Reason: nausea and vomiting) 3 Days Qty: 12 RF: 0 No Action zolpidem [Ambien] 5 mg tablet 5 mg PO QHS PRN (Reason: Sleep) RF: 0 metoprolol tartrate 25 mg tablet 12.5 mg PO DAILY RF: 0 cholecalciferol (vitamin D3) 25 mcg (1,000 unit) capsule 25 mcg PO DAILY RF: 0 mecobalamin (vitamin B12) 1,000 mcg tablet,chewable 1,000 mcg PO DAILY RF: 0 magnesium oxide 400 mg (241.3 mg magnesium) tablet 400 mg PO DAILY RF: 0 warfarin 5 mg tablet 5 mg PO QMWF RF: 0 atorvastatin 20 mg tablet 20 mg PO QHS Qty: 90 RF: 3 ondansetron 4 mg tablet,disintegrating 4 mg PO Q6H PRN (Reason: nausea and vomiting) Qty: 10 RF: 0 flecainide 50 mg tablet 25 mg PO Q12H Qty: 90 RF: 3 Primary Care Provider: Larry Fajardo Referrals: Larry Fajardo DO [Primary Care Provider] - Freeman Jacob MD [STAFF PHYSICIAN] - Activity Restrictions/Additional Instructions: Today your blood work was normal except her INR was elevated at 4.7. Please do not take your Coumadin for the next 2 days and after that call your primary care doctor for further dosing instructions. Your CAT scan showed no sign of stroke. Your vertigo or room spinning symptoms are consistent with peripheral vertigo which means it is likely from your inner ear. I prescribed medications to take as needed for nausea and vomiting and vertigo if it reoccurs. I am also referring you to ENT so they can further evaluate and treat. If your symptoms worsen despite taking the medications please come back to the ER.
[2021-07-29 10:42] LABS: Absolute Lymphocyte Count 1.71 X10^3/uL (0.83-4.51); Absolute Neutrophil Count 2.6 X10^3/uL (2.0-7.7); Basophil# 0.01 X10^3/uL; Basophil% 0.2 % (0-1); Hematocrit 40.4 % (37-47); Hemoglobin 13.3 g/dL (12.0-15.0); Lymphocyte # 1.71 X10^3/ul (0.83-4.51); Lymphocyte % 33.1 % (19-41); Mean Corp Hgb Conc 32.9 g/dL (32-36); Mean Corpuscular Hgb 30.4 pg (27.0-32.0); Mean Corpuscular Volume 92.4 fL (81-99); Mean Platelet Vol. 12.4 fl (6.2-12.0); Monocyte# 0.84 X10^3/uL; Monocyte% 16.2 % (0-10); NRBC Flagged by Analyzer 0 % (0-5); Neutrophil # 2.61 X10^3/uL (2.7-7.7); Neutrophil % 50.5 % (47-70); Platelet Count 115 K/mm3 (150-450); RBC Distribution Width SD 43.9 fl (35.1-43.9); Red Blood Count 4.37 M/mm3 (4.2-5.4); White Blood Count 5.2 K/mm3 (4.4-11.0)
[2021-07-29] MEDS: 0.9% Normal Saline 1,000 ML 1000 ML IV (10:43)
[2021-07-29] MEDS: Ondansetron 4 MG/2 ML Vial IV (10:43)
[2021-07-29] MEDS: Meclizine HCl 25 MG Tablet PO (10:43)
[2021-07-29 10:49] LABS: Prothrombin Time (Protime)PT. 43.3 SECONDS (11.7-14.9)
[2021-07-29 10:59] LABS: International Normalized Ratio 4.7
[2021-07-29 11:02] LABS: ALB/GLOB Ratio 0.8 RATIO (0.9-2.4); AST(SGOT) 32 U/L (15-37); Alanine Aminotransfer ALT/SGPT 27 U/L (13-56); Albumin, Serum 3.2 g/dL (3.2-5.0); Alkaline Phosphatase 79 U/L (45-117); Anion Gap 5 (5-15); BUN 10 mg/dL (7-18); BUN/Creat Ratio 12.6 RATIO (10-20); Calcium,Total 8.4 mg/dL (8.5-10.1); Chloride 109 mmol/L (98-107); EST Glomerular Filtration Rate 73 mL/min (>60); Est Glom Filt Rate - Afr Amer 88 mL/min (>60); Estimated Creatinine Clearance 48.13 ml/min; Globulin 3.9 g/dL (2.2-4.2); Glucose 138 mg/dL (74-106); Potassium 3.3 mmol/L (3.5-5.1); Protein, Total 7.1 g/dL (6.4-8.2); Sodium Level 138 mmol/L (136-145); Troponin-I HS 12 pg/mL (3.0-54.0)
[2021-07-29 11:51] LABS: Bacteria 0 SEEN /hpf (None Seen); Mucous, Urine 0 SEEN /hpf (<or=2+)
[2021-07-29] MEDS: diazePAM 2 MG Tablet PO (11:51)
[2021-07-29 11:52] VITALS: BP 143/54; PULSE 70; RESP 16; O2SAT 97
[2021-07-29 11:54] LABS: Color, Urine Yellow (Yellow); Glucose, Dipstick Normal (Normal); Ketone-Dipstick Negative (Negative); Leukocyte Esterase-Dipstick 25 /ul (Negative); Nitrite-Dipstick Negative (Negative); Occult Blood-Urine 25 /ul (Negative); Protein-Dipstick 15 mg/dl (Negative); Urine Bilirubin Dipstick Negative (Negative); Urine Clarity Clear (Clear); Urine Urobilinogen Normal (Normal)
[2021-07-29 11:56] LABS: Red Blood Cells-Urine 0-5 SEEN /hpf (0-5); Squamous Epithelial Cells - UA 0-5 SEEN /hpf (5-10); White Blood Cells 0-5 SEEN /hpf (0-5)
== END 2021-07-29 23:59 ==
LOC: ED 10:36
PROVIDERS: Emergency Provider Physician Assistant; PCP Student in an Organized Health Care Education/Training Program; Visit Provider Physician Assistant
DX: H81.10 Benign paroxysmal vertigo, unspecified ear (principal); I48.0 Paroxysmal atrial fibrillation; R11.2 Nausea with vomiting, unspecified; R79.1 Abnormal coagulation profile; Z79.01 Long term (current) use of anticoagulants; Z79.899 Other long term (current) drug therapy
CPT/HCPCS: 70450; 71045; 80053; 81001; 84484; 85025; 85610; 87426; 93005; 96361; 96374; 99285; J7030; J2405

== ENCOUNTER 2022-04-17 09:29 | Emergency (ER) | payer MEDICARE, OTHER, SELFPAY ==
[2022-04-17 09:30] VITALS: BP 136/58; PULSE 89; RESP 36; TEMP 36.4; O2SAT 92; BMI 27.3
[2022-04-17 09:41] VITALS: O2SAT 92; O2SAT 95
--- NOTE | 2022-04-17 10:07 | EKG12_ITS ---
Test Reason : SOB Blood Pressure : / mmHG Vent. Rate : 078 BPM Atrial Rate : 078 BPM P-R Int : 162 ms QRS Dur : 078 ms QT Int : 388 ms P-R-T Axes : 036 052 050 degrees QTc Int : 442 ms Normal sinus rhythm Normal ECG Confirmed by CALLY FISHER, BLADE ([id number]), manager editorial GINGER CARLSON ([id number]) on 04/18/2022 12:04:42 PM Referred By: Confirmed By:BLADE ALAMO MD
--- NOTE | 2022-04-17 10:09 | EDS_ITS ---
HPI HPI - URI History of Present Illness Chief Complaint: Shortness of Breath Informant: patient Onset/Context/Timing Onset: Days Context: Gradual Onset Timing: Continuous Current Severity: Mild Maximum Severity: Mild Associated Symptoms Associated Symptoms: Positive for Nasal Congestion, Shortness of Breath and Nonproductive cough Narrative Narrative: 86-year-old female history of A. fib on Coumadin. States that she has had a cough and been short of breath for the last 5 days since Monday. She is tested twice negative for COVID at home. She states she initially had some subjective fever or chills. Nonproductive cough. No chest pain. No hemoptysis. No leg pain or swelling. She has no underlying lung disease. She is on smoker. Prior similar symptoms: No Recent Illness/Hospitalization: No ROS ROS ED ROS Narrative Cough, fever and chills and shortness of breath. Review of Systems ROS Unobtainable: Denies due to encephalopathy Constitutional Constitutional ED: Reports chills, fever(s) and subjective Eyes Eyes: Denies blurry vision ENT ENT ED: Denies ear pain Cardiovascular Cardiovascular: Denies chest pain Respiratory/Chest Respiratory/Chest: Reports cough and dyspnea Gastrointestinal Gastrointestinal: Denies abdominal pain Genitourinary Genitourinary ED: Denies dysuria Musculoskeletal Musculoskeletal: Denies arthralgias Integumentary Denies abscess Neurologic Neurologic: Denies headache(s) Psychiatric Psychiatric: Denies anxiety Endocrine Endocrinology: Denies cold intolerance Hematologic/Lymphatic Hematologic/Lymphatic: Denies easy bleeding Allergic/Immunologic Allergic/Immunologic ED: Denies mouth swelling or tongue swelling [facility] Medical History Abnormal EKG Hyperlipidemia Insomnia Interstitial lung disease Paroxysmal atrial fibrillation Subdural hematoma (04/09/20) Home Medications metoprolol tartrate 25 mg tablet 12.5 mg PO DAILY 05/28/19 [History Last Taken Unknown] zolpidem 5 mg tablet (Ambien) 5 mg PO QHS PRN Sleep 05/28/19 [History Last Taken Unknown] cholecalciferol (vitamin D3) 25 mcg (1,000 unit) capsule 25 mcg PO DAILY 12/02/20 [History Last Taken Unknown] atorvastatin 20 mg tablet 20 mg PO QHS #90 tabs 06/04/21 [Rx Last Taken Unknown] magnesium oxide 400 mg (241.3 mg magnesium) tablet 400 mg PO DAILY 06/04/21 [History Last Taken Unknown] mecobalamin (vitamin B12) 1,000 mcg chewable tablet 1,000 mcg PO DAILY 06/04/21 [History Last Taken Unknown] warfarin 5 mg tablet 5 mg PO QMWF 06/04/21 [History Last Taken Unknown] ondansetron 4 mg disintegrating tablet 4 mg PO Q6H PRN nausea and vomiting #10 tabs 07/26/21 [Rx Last Taken Unknown] diazepam 2 mg tablet (Valium) 2 mg PO BID PRN vertigo 3 days #9 tabs 07/29/21 [Rx Last Taken Unknown] meclizine 25 mg tablet 25 mg PO 4X/DAY PRN PRN Dizziness #20 tabs 07/29/21 [Rx Last Taken Unknown] promethazine 12.5 mg tablet 12.5 mg PO Q6H PRN nausea and vomiting 3 days #12 tabs 07/29/21 [Rx Last Taken Unknown] flecainide 50 mg tablet 25 mg PO Q12H #90 tabs 03/21/22 [Rx Last Taken Unknown] levofloxacin 500 mg tablet 500 mg PO DAILY Pneumonia 6 days #6 tabs 04/17/22 [Rx Last Taken Unknown] Allergy/AdvReac Type Severity Reaction Status Date / Time Iodine and Iodide Containing Allergy hives Verified 04/17/22 09:30 Produc Family History Sister Colon cancer Cancer lung Sister Colon cancer Sister Colon cancer Sister Colon cancer Mother Hypertension Other Heart disease Surgical History History of jason hole surgery (03/2020) History of cataract surgery History of hysterectomy History of lumbar laminectomy Social History Smoking Status: Never smoker EXAM Physical Exam Narrative Exam Narrative: 86-year-old female no acute distress. Vital signs are stable and afebrile. Pulse ox is 92% on room air no hypoxia. H EENT exam unremarkable. Moist mucous membranes. Neck nontender. No JVD. No lymphadenopathy. Lungs prolonged expiratory phase. No rales or rhonchi. No significant wheezing. Heart regular rate and rhythm rate about 90 no murmur. Chest were nontender. Abdomen soft nontender. Moving all 4 extremities. Calves are nontender without edema or cords. Const Vital Signs: 04/17/22 09:30 04/17/22 09:41 04/17/22 10:17 Temperature 97.6 F L Temperature Source Temporal Pulse Rate 89 Respiratory Rate 36 H Respiratory Effort Short of Breath Respiratory Depth Deep Respiratory Pattern Tachypnea Blood Pressure 136/58 H Blood Pressure Mean 84 Pulse Ox 92 95 Oxygen Delivery Method Room Air Nasal Cannula Room Air Oxygen Flow Rate (L/min) 2 04/17/22 10:20 Temperature Temperature Source Pulse Rate 79 Respiratory Rate 16 Respiratory Effort Respiratory Depth Respiratory Pattern Blood Pressure Blood Pressure Mean Pulse Ox Oxygen Delivery Method Oxygen Flow Rate (L/min) Positive well nourished and well developed; Negative for obese, cachectic or contractures General Appearance ED: well developed and NAD; Negative for cachectic, contractures, cyanotic, diaphoretic or pallor Nutritional Appearance: Negative for cachectic or obese HEENT Reports moist mucous membranes; Denies dry mucous membranes normocephalic and atraumatic; Negative for scalp tenderness Face and Sinus: Negative for sinus tenderness Mouth ED: No dry mucous membranes Mouth: No dry mucous membranes Teeth and Gingiva: Negative for caries Throat: posterior oropharynx normal Eyes PERRL and EOMs intact bilaterally General Eye ED: Negative for pale conjunctiva Neck no lymphadenopathy, supple and no meningeal signs General: Negative for anterior neck swelling or lymphadenopathy Resp normal respiratory effort and clear to auscultation bilaterally Resp Narrative: Prolonged expiratory phase. Effort and Inspection: Negative for retractions Auscultation: Negative for rales or rhonchi Cardio S1 normal heart sound, S2 normal heart sound and no murmurs Rate: regular rate Rhythm: regular rhythm GI non-tender, non-distended and no masses Inspection: Negative for abdominal distention Auscultation: normoactive bowel sounds Palpation: soft; Negative for tender or guarding Back/Spine no CVA tenderness and normal ROM General Back: Negative for CVA tenderness Cervical Spine: Negative for cervical spine tenderness Thoracic Spine / Upper Back: Negative for thoracic spinal tenderness Lumbar Spine / Lower Back: Negative for lumbar spinal tenderness Sacrum: Negative for tenderness Extremity normal to inspection and full ROM General Extremety ED: Negative for cyanosis or tenderness General Extremity: Negative for cyanosis Neuro oriented x3 and CN's II-XII intact bilaterally Sensorium / Orientation: alert, oriented to person, oriented to place and oriented to time; Negative for orientation impaired, lethargic or stuporous Motor Exam: strength 5/5 throughout Psych mental status grossly normal Attitude: No agitated Mood & Affect: Negative for depressed, anxious or tearful Skin General Skin Exam: Negative for jaundice or pallor Rashes: no rashes Trauma: Negative for abrasion or laceration MDM MDM MDM Narrative Medical decision making narrative: 86-year-old with URI symptoms and shortness of breath. Treated with DuoNeb and albuterol aerosols. Oral prednisone. Chest x-ray, EKG and labs being obtained. Repeat exam unchanged 11:05 AM. Discussed with patient all of her test results. She will be treated for right lower lobe pneumonia started on Levaquin for 7 days. She knows her INR is too high we will hold her warfarin for the next 3 days have it rechecked either Monday or Monday and her primary care physician will instruct her when to restart it. I have her primary care physician on page. I did discuss with the patient and she feels comfortable being discharged home. She knows to return if worse. Lab Data Attestation: I reviewed the patient's lab results. Lab results narrative: CBC shows a white count 12.6. H&H 11.5 and 35. Platelets 172. Electrolytes show sodium 132. Gap of 8. Normal BUN of 11 and creatinine 0.9. Glucose 216. COVID and influenza swabs negative. She is on warfarin her INR is elevated at 6.5. Labs: Laboratory Results - last 24 hr 04/17/22 04/17/22 04/17/22 10:12 10:12 10:15 WBC 12.6 H RBC 3.84 L Hgb 11.5 L Hct 35.5 L MCV 92.4 MCH 29.9 MCHC 32.4 RDW Std Deviation 44.1 H RDW Coeff of Rodolfo 13.0 Plt Count 172 MPV 12.1 H Immature Gran % (Auto) 0.400 Neut % (Auto) 82.8 H Lymph % (Auto) 6.1 L [place] % (Auto) 9.5 Eos % (Auto) 0.7 Baso % (Auto) 0.5 Absolute Neuts (auto) 10.4 H Absolute Lymphs (auto) 0.76 L Nucleated RBC % 0 Differential Comment SCANNED PT 56.7 H INR 6.5 H* Sodium 132 L Potassium 4.1 Chloride 99 Carbon Dioxide 25.0 Anion Gap 8 BUN 11 Creatinine 0.97 Estim Creat Clear Calc 39.69 Est GFR (MDRD) Af Amer 70 Est GFR (MDRD) Non-Af 58 L BUN/Creatinine Ratio 11.3 Glucose 216 H Calcium 8.4 L Radiography Diagnostic Testing: Clinical Impression(s) from Imaging Studies Chest X-Ray 04/17/22 10:27 IMPRESSION: Increasing interstitial opacities in the bilateral lungs with increased right lower lobe opacity, concerning for pneumonia. Recommend follow to resolution to exclude underlying lesion. Electronically Signed: Anna Zavala MD at 10:40 EST , X-ray shows bilateral interstitial pattern with as suspicious right lower lobe density could be consistent with a right lower lobe pneumonia. Is a portable film single view interpreted both by myself the radiologist and we agree. Rhythm Strip Rhythm Strip: Sinus Rhythm Rate: 78 Ectopy: None EKG Initial EKG: Attestation: I personally reviewed and interpreted this EKG as follows: Interpretation: Sinus Rhythm and No Acute Injury Pattern Comments: Normal sinus rhythm rate of 78 no acute signs of OK, ischemia or dysrhythmia. Discharge Plan Triage Chief Complaint: Shortness of Breath ED Provider: Toney Parra Dx/Rx/DC Orders Clinical Impression: Pneumonia, Coagulopathy Instructions: ED Pneumonia (Adult) Prescriptions: New levofloxacin 500 mg tablet 500 mg PO DAILY 6 Days Qty: 6 0RF No Action zolpidem [Ambien] 5 mg tablet 5 mg PO QHS PRN (Reason: Sleep) metoprolol tartrate 25 mg tablet 12.5 mg PO DAILY cholecalciferol (vitamin D3) 25 mcg (1,000 unit) capsule 25 mcg PO DAILY mecobalamin (vitamin B12) 1,000 mcg tablet,chewable 1,000 mcg PO DAILY magnesium oxide 400 mg (241.3 mg magnesium) tablet 400 mg PO DAILY warfarin 5 mg tablet 5 mg PO QMWF Rx Instructions: /MONDAY 6MG atorvastatin 20 mg tablet 20 mg PO QHS Qty: 90 3RF ondansetron 4 mg tablet,disintegrating 4 mg PO Q6H PRN (Reason: nausea and vomiting) Qty: 10 0RF meclizine 25 mg tablet 25 mg PO 4X/DAY PRN PRN (Reason: Dizziness) Qty: 20 0RF diazepam [Valium] 2 mg tablet 2 mg PO BID PRN (Reason: vertigo) 3 Days Qty: 9 0RF promethazine 12.5 mg tablet 12.5 mg PO Q6H PRN (Reason: nausea and vomiting) 3 Days Qty: 12 0RF flecainide 50 mg tablet 25 mg PO Q12H Qty: 90 3RF Primary Care Provider: Larry Fajardo Referrals: Larry Fajardo, [Primary Care Provider] - As soon as possible Activity Restrictions/Additional Instructions: Have a right lower lobe pneumonia. She will be treated with the antibiotic Levaquin 1 pill a day for 7 days total. First dose given in the ER. Your warfarin or Coumadin level is too high. Your INR is 6.5. We will hold that medication today tomorrow and Monday. You need to get it rechecked either Monday or Monday. Your physician can check those results and determine when to restart the medication. Plenty of fluids and rest. Tylenol for body aches and fevers. Follow-up with your doctor to ensure you are improving or return if you are feeling worse. Disposition Disposition: Home, Self Care
[2022-04-17 10:17] VITALS: O2SAT 92
[2022-04-17] MEDS: Ipratropium/Albuterol Sulfate 3 ML AMPUL.NEB INHALATION (10:19)
[2022-04-17 10:20] VITALS: PULSE 79; RESP 16
[2022-04-17] MEDS: Albuterol 2.5 MG/3 ML VIAL.NEB. INHALATION (10:20)
[2022-04-17 10:21] LABS: Absolute Lymphocyte Count 0.76 X10^3/uL (0.83-4.51); Absolute Neutrophil Count 10.4 X10^3/uL (2.0-7.7); Basophil# 0.06 X10^3/uL; Basophil% 0.5 % (0-1); Eosinophil# 0.09 X10^3/uL; Eosinophils% 0.7 % (0-5); Hematocrit 35.5 % (37-47); Hemoglobin 11.5 g/dL (12.0-15.0); Lymphocyte # 0.76 X10^3/ul (0.83-4.51); Lymphocyte % 6.1 % (19-41); Mean Corp Hgb Conc 32.4 g/dL (32-36); Mean Corpuscular Hgb 29.9 pg (27.0-32.0); Mean Corpuscular Volume 92.4 fL (81-99); Mean Platelet Vol. 12.1 fl (6.2-12.0); Monocyte# 1.19 X10^3/uL; Monocyte% 9.5 % (0-10); NRBC Flagged by Analyzer 0 % (0-5); Neutrophil # 10.41 X10^3/uL (2.7-7.7); Neutrophil % 82.8 % (47-70); POSITIVE MORPHOLOGY YES; Platelet Count 172 K/mm3 (150-450); RBC Distribution Width SD 44.1 fl (35.1-43.9); Red Blood Count 3.84 M/mm3 (4.2-5.4); White Blood Count 12.6 K/mm3 (4.4-11.0)
[2022-04-17 10:25] LABS: Differential Indicated SCAN CRITERIA MET
--- NOTE | 2022-04-17 10:27 | RAD_ITS ---
HISTORY: cough. TECHNIQUE: XR Chest 1 View. COMPARISON: 07/29/2021. FINDINGS: CARDIOMEDIASTINAL BORDERS: Cardiac silhouette within normal limits in size. Mediastinal contour unremarkable with calcification of the aortic knob. LUNGS: Increased peripheral interstitial opacities in the lungs. Patchy opacity in the right lower lobe. PLEURA: No pleural effusion or pneumothorax seen. OSSEOUS STRUCTURES: Unremarkable. RAD/Chest 1 View (Portable) IMPRESSION: Increasing interstitial opacities in the bilateral lungs with increased right lower lobe opacity, concerning for pneumonia. Recommend follow to resolution to exclude underlying lesion. Electronically Signed: Anna Zavala MD at 10:40 EST ,
[2022-04-17 10:30] LABS: Anion Gap 8 (5-15); BUN 11 mg/dL (7-18); BUN/Creat Ratio 11.3 RATIO (10-20); Calcium,Total 8.4 mg/dL (8.5-10.1); Chloride 99 mmol/L (98-107); Creatinine, Serum 0.97 mg/dL (0.55-1.02); EST Glomerular Filtration Rate 58 mL/min (>60); Est Glom Filt Rate - Afr Amer 70 mL/min (>60); Estimated Creatinine Clearance 39.69 ml/min; Glucose 216 mg/dL (74-106); Potassium 4.1 mmol/L (3.5-5.1); Sodium Level 132 mmol/L (136-145)
[2022-04-17] MEDS: predniSONE 20 MG Tablet 60 MG PO (10:31)
[2022-04-17 10:42] LABS: Prothrombin Time (Protime)PT. 56.7 SECONDS (11.7-14.9)
[2022-04-17 10:53] LABS: International Normalized Ratio 6.5
[2022-04-17 10:56] LABS: Differential Comment SCANNED
[2022-04-17] MEDS: levoFLOXacin 750 MG Tablet PO (11:19)
--- NOTE | 2022-04-21 10:50 | CASEMGMT ---
Addendum entered by Leatha Hale 04/21/22 11:10: INCIDENTAL FINDING F/U -1100: Return call from pt. Pt stated she has been taking her ATB as directed. Pt has a f/u appt with PCP Scotty today. Pt denied the results below were reviewed with her but pt plans to discuss the findings with PCP Scotty today. No needs reported. -1102: TC to PCP Scotty's office. Complex Bundle Tier spoke with TORIBIO Roa. Navigator advised the call was to confirm results were received. Janina stated she wasn't able to see what was faxed at this time. However, she took note and stated PCP Scotty would be able to review and discuss at the appt today. Original Note: INCIDENTAL FINDING F/U -Per Chest X-ray, in [facility], on 04/17/22: Increasing interstitial opacities in the bilateral lungs with increased right lower lobe opacity, concerning for pneumonia.? Recommend follow to resolution to exclude underlying lesion. -TC to pt to discuss the findings. Pt did not answer the call. Voicemail stating it was pt's phone. Complex Bundle Tier left name and phone contact.
== END 2022-04-17 11:32 | disposition home or self-care (01) ==
PROVIDERS: Emergency Provider Emergency Medicine; PCP Student in an Organized Health Care Education/Training Program; Visit Provider Emergency Medicine
DX: J18.9 Pneumonia, unspecified organism (principal); I48.91 Unspecified atrial fibrillation; D68.9 Coagulation defect, unspecified; E78.5 Hyperlipidemia, unspecified; F17.200 Nicotine dependence, unspecified, uncomplicated; Z20.822 Contact with and (suspected) exposure to COVID-19; R06.02 Shortness of breath; Z79.01 Long term (current) use of anticoagulants
CPT/HCPCS: 71045; 80048; 85025; 85610; 87428; 93005; 94640; 99284; A4216

== ENCOUNTER → 2022-04-21 | Outpatient (CLI) | payer MEDICARE, OTHER, SELFPAY ==
[2022-04-21 17:29] LABS: Prothrombin Time (Protime)PT. 38.7 SECONDS (11.7-14.9)
== END | disposition home or self-care (01) ==
LOC: LABSPEC 15:47
PROVIDERS: PCP Student in an Organized Health Care Education/Training Program; Visit Provider Student in an Organized Health Care Education/Training Program
DX: I48.20 Chronic atrial fibrillation, unspecified (principal)
CPT/HCPCS: 85610

== ENCOUNTER → 2022-09-14 | Outpatient (CLI) | payer MEDICARE, OTHER, SELFPAY ==
--- NOTE | 2022-09-14 12:55 | ECHOD_ITS ---
Reason For Study: DYSPNEA Procedure This was a 2D Doppler, Color Flow transthoracic echocardiogram. Exam performed in department. Left Ventricle Normal LV size. Left ventricular systolic function is normal. The estimated ejection fraction is 55 %. No regional wall motion abnormalities noted. Right Ventricle Normal RV size. Normal systolic function. Atria Normal left atrium. Normal right atrium. Tricuspid Valve Normal tricuspid valve. Mild tricuspid valve insufficiency. Pulmonary artery systolic pressure is 30 mmHg. Aortic Valve Normal aortic valve. Trisinus/trileaflet aortic valve. Pulmonic Valve Normal pulmonic valve. Great Vessels Normal aortic root. The pulmonary artery is normal size. Normal inferior vena cava. Pericardium/Pleural No pericardial effusion. MMode/2D Measurements & Calculations LVIDd: 3.7 cm IVSd: 1.4 cm LVOT diam: 1.8 cm LVIDs: 2.4 cm LVPWd: 0.91 cm LVOT area: 2.6 cm2 RVDd: 3.6 cm FS: 35.5 % Ao root diam: 3.3 cm LAV(MOD-bp): 44.7 ml LVAd ap4: 18.9 cm2 LAV(MOD-bp) Indexed: 24.5 ml/m2 LVLd ap4: 6.1 cm LAV(MOD-sp2): 44.5 ml EDV(MOD-sp4): 47.8 ml LAV(MOD-sp4): 42.7 ml EDV(sp4-el): 50.0 ml LVAs ap4: 10.9 cm2 LVLs ap4: 5.2 cm ESV(MOD-sp4): 19.5 ml ESV(sp4-el): 19.1 ml EF(MOD-sp4): 59.2 % EF(sp4-el): 61.7 % SV(MOD-sp4): 28.3 ml SV(MOD-sp2): 31.4 ml LVAd ap2: 21.3 cm2 LVLd ap2: 7.3 cm EDV(MOD-sp2): 51.1 ml EDV(sp2-el): 53.1 ml LVAs ap2: 11.4 cm2 LVLs ap2: 5.6 cm ESV(MOD-sp2): 19.7 ml ESV(sp2-el): 20.0 ml EF(MOD-sp2): 61.4 % SV(sp4-el): 30.8 ml LA A4 area: 17.6 cm2 LA dimension(2D): 3.6 cm RA A4 area: 16.3 cm2 Time Measurements MV dec time: 0.24 sec Doppler Measurements & Calculations MV E max dat: 98.7 cm/sec Lat Peak E' Dat: 5.6 cm/sec Med Peak E' Dat: 5.0 cm/sec MV A max dat: 109.6 cm/sec E/E' lat: 17.5 E/E' med: 19.7 MV E/A: 0.90 MV dec slope: 412.5 cm/sec2 Ao V2 max: 163.4 cm/sec LV V1 max: 111.4 cm/sec Ao max P.7 mmHg LV V1 max P.0 mmHg JIM(V,D): 1.8 cm2 PA V2 max: 87.8 cm/sec TR max dat: 263.5 cm/sec PA max PG (full): 1.8 mmHg TR max P.8 mmHg ECHO/Echo Complete Interpretation Summary Normal LV size. Left ventricular systolic function is normal. The estimated ejection fraction is 55 %. Pulmonary artery systolic pressure is 30 mmHg. Ordering Physician: Pearl Núñez Referring Physician: Pearl Núñez Performed By: Kirstie Briceno
== END | disposition home or self-care (01) ==
LOC: CVS 12:53
PROVIDERS: PCP Student in an Organized Health Care Education/Training Program; Referring Provider Physician Assistant Medical; Visit Provider Physician Assistant Medical
DX: R06.02 Shortness of breath (principal)
CPT/HCPCS: 93306

== ENCOUNTER 2024-05-27 12:14 | Inpatient (IN) | payer MEDICARE, OTHER, SELFPAY ==
[2024-05-27] VITALS (26 sets, daily range): BP systolic 114–162; BP diastolic 45–78; PULSE 60–85; RESP 15–20; TEMP 36.1–37.2; O2SAT 98–100; BMI 25.9; BMI 25.7
--- NOTE | 2024-05-27 12:35 | EKG12_ITS ---
Test Reason : SOB Blood Pressure : */* mmHG Vent. Rate : 61 BPM Atrial Rate : 61 BPM P-R Int : 176 ms QRS Dur : 88 ms QT Int : 424 ms P-R-T Axes : 39 47 44 degrees QTcB Int : 426 ms Normal sinus rhythm Normal ECG Confirmed by Lloyd Jennings ([id number]), purchasing expeditor GINGER CARLSON ([id number]) on 05/28/2024 1:21:05 PM Referred By: Rancho Jordan Confirmed By: Lloyd Jennings
[2024-05-27 12:59] LABS: Absolute Lymphocyte Count 1.85 X10^3/uL (0.83-4.51); Absolute Neutrophil Count 9.4 X10^3/uL (2.0-7.7); Basophil# 0.02 X10^3/uL; Basophil% 0.2 % (0-1); Eosinophil# 0.12 X10^3/uL; Hematocrit 20.9 % (37-47); Hemoglobin 6.2 g/dL (12.0-15.0); Lymphocyte # 1.85 X10^3/ul (0.83-4.51); Lymphocyte % 15.3 % (19-41); Mean Corp Hgb Conc 29.7 g/dL (32-36); Mean Corpuscular Hgb 28.4 pg (27.0-32.0); Mean Corpuscular Volume 95.9 fL (81-99); Mean Platelet Vol. 10.8 fl (6.2-12.0); Monocyte# 0.65 X10^3/uL; Monocyte% 5.4 % (0-10); NRBC Flagged by Analyzer 0.2 % (0-5); Neutrophil # 9.39 X10^3/uL (2.7-7.7); Neutrophil % 77.4 % (47-70); Platelet Count 229 K/mm3 (150-450); RBC Distribution Width SD 64.2 fl (35.1-43.9); Red Blood Count 2.18 M/mm3 (4.2-5.4); White Blood Count 12.1 K/mm3 (4.4-11.0)
--- NOTE | 2024-05-27 13:05 | EDS_ITS ---
HPI History of Present Illness Chief Complaint: Shortness of Breath Detail of Chief Complaint: Patient not felt well since [place] and complains of increasing dyspne Informant: patient Onset/Context/Timing Onset: Weeks Context: Gradual Onset Timing: Continuous Quality: Dyspnea, dyspnea on exertion, mild respiratory symptoms Location: Respiratory, suspect patient has symptomatic anemia based on pallor Current Severity: Mild Maximum Severity: Severe Worsened by: Activity Relieved by: Nothing Associated Symptoms Associated Symptoms: Black stool for a couple of weeks Narrative Narrative: Patient is a 8-year-old woman. She has history of paroxysmal atrial fibrillation on Coumadin. She states her PT/INR was checked 2 weeks ago. Does not know the results. She also has a history of hyperlipidemia, dyspnea on exertion and subarachnoid hematoma March 2020. Patient is not on an antiplatelet. She does have history of hypercholesterolemia. Patient denies fever, chills night sweats. She reports mild congestion. She states that is chronic. It may have been slightly worse over the past couple of weeks. She denies ear pain or drainage from ears. She denies sore throat. She has an occasional cough. Cough is nonproductive. She completed a course of antibiotics with no improvement. Patient denies nausea or vomiting. Patient denies diarrhea. Patient does endorse black-colored stool. Patient denies hematuria. Patient denies bleeding of her gums. She does endorse bruising easily. Most recent INR was 4.0 on April 21. On April 17 INR was 6.5. Prior similar symptoms: No Recent Illness/Hospitalization: Yes [facility] Medical History Subdural hematoma (04/09/20) Abnormal EKG Insomnia Paroxysmal atrial fibrillation Hyperlipidemia Interstitial lung disease Home Medications ?Medication ?Instructions ?Recorded ?Last Taken ?Type metoprolol tartrate 25 mg tablet 12.5 mg PO BID 05/28/19 05/27/24 History zolpidem 5 mg tablet (Ambien) 5 mg PO QHS PRN Sleep 05/28/19 Unknown History cholecalciferol (vitamin D3) 25 25 mcg PO DAILY 12/02/20 05/26/24 History mcg (1,000 unit) capsule magnesium oxide 400 mg (241.3 mg 400 mg PO DAILY 06/04/21 05/26/24 History magnesium) tablet warfarin 5 mg tablet 5 mg PO DAILY 06/04/21 05/26/24 History mecobalamin (vitamin B12) 1,000 1,000 mcg PO DAILY 08/29/22 05/26/24 History mcg chewable tablet atorvastatin 20 mg tablet 20 mg PO QHS #90 tabs 08/28/23 05/26/24 Rx flecainide 50 mg tablet 25 mg (1/2 x 50 mg) PO Q12H #90 03/11/24 05/27/24 Rx tabs benzonatate 100 mg capsule 100 mg PO TID PRN cough 05/27/24 05/26/24 History furosemide 20 mg tablet 10 - 20 mg PO DAILY PRN swelling 05/27/24 05/26/24 History guaifenesin 600 mg tablet, 1,200 mg PO BID 05/27/24 05/26/24 History extended release 12 hr prednisone 10 mg tablet 10 mg PO DAILY 05/27/24 05/27/24 History zinc gluconate 50 mg tablet 50 mg PO DAILY 05/27/24 05/26/24 History Allergy/AdvReac Type Severity Reaction Status Date / Time Iodine and Iodide Containing Allergy hives Verified 05/27/24 12:15 Produc Family History Sister Colon cancer Cancer lung Sister Colon cancer Sister Colon cancer Sister Colon cancer Mother Hypertension Other Heart disease Surgical History History of jason hole surgery (03/2020) History of cataract surgery History of hysterectomy History of lumbar laminectomy Social History Smoking Status: Never smoker ROS ROS ED Constitutional Constitutional ED: Denies chills, fever(s), subjective or sweats Eyes Eyes: Denies blurry vision or change in vision ENT ENT ED: Reports rhinorrhea; Denies ear pain or sore throat Cardiovascular Cardiovascular: Denies chest pain, orthopnea, palpitations, paroxysmal nocturnal dyspnea or racing heartbeat Respiratory/Chest Respiratory/Chest: Reports cough, dyspnea and dyspnea on exertion; Denies orthopnea, paroxysmal nocturnal dyspnea or sputum Gastrointestinal Gastrointestinal: Reports melena; Denies abdominal pain, constipation, diarrhea, nausea or vomiting Genitourinary Genitourinary ED: Denies dysuria, hematuria or urinary frequency Musculoskeletal Musculoskeletal: Denies arthralgias, back pain or myalgias Integumentary Denies rash Neurologic Neurologic: Reports weakness; Denies headache(s) Endocrine Endocrinology: Denies cold intolerance or heat intolerance Hematologic/Lymphatic Hematologic/Lymphatic: Reports easy bruising EXAM Physical Exam Const Vital Signs: 05/27/24 12:15 05/27/24 12:17 05/27/24 12:55 Temperature 97.8 F 98 F Temperature Source Oral Oral Pulse Rate 63 60 Pulse Rate [Lying] 61 Pulse Rate [Sitting (for 1 minute prior to obtaining)] 65 Pulse Rate [Standing (for 1 minute prior to obtaining)] 64 Respiratory Rate 20 H 20 H Blood Pressure 125/46 H 124/45 H Blood Pressure [Lying] 120/46 L Blood Pressure [Sitting (for 1 minute prior to obtaining)] 128/49 H Blood Pressure [Standing (for 1 minute prior to obtaining)] 116/52 L Blood Pressure Mean 72 71 Blood Pressure Mean [Lying] 70 Blood Pressure Mean [Sitting (for 1 minute prior to obtaining)] 75 Blood Pressure Mean [Standing (for 1 minute prior to obtaining)] 73 Pulse Ox 100 100 Oxygen Delivery Method Room Air Room Air 05/27/24 13:00 05/27/24 13:15 Temperature 98 F Temperature Source Temporal Pulse Rate 85 63 Pulse Rate [Lying] Pulse Rate [Sitting (for 1 minute prior to obtaining)] Pulse Rate [Standing (for 1 minute prior to obtaining)] Respiratory Rate 18 20 H Blood Pressure 120/67 120/59 L Blood Pressure [Lying] Blood Pressure [Sitting (for 1 minute prior to obtaining)] Blood Pressure [Standing (for 1 minute prior to obtaining)] Blood Pressure Mean 84 79 Blood Pressure Mean [Lying] Blood Pressure Mean [Sitting (for 1 minute prior to obtaining)] Blood Pressure Mean [Standing (for 1 minute prior to obtaining)] Pulse Ox 100 100 Oxygen Delivery Method Nasal Cannula Positive well nourished and well developed Constitutional Narrative: Patient has conversational dyspnea. Patient is very pale. There is no color to her conjunctive and question if there is any color to the creases in her palm. Orthostatic vital signs were negative. Patient is on a beta-elizabeth. General Appearance ED: well developed and pallor HEENT Reports moist mucous membranes HEENT Narrative: Posterior pharynx is normal. Uvula is midline. No deviation tongue or protrusion. Eyes PERRL and EOMs intact bilaterally General Eye ED: Yes pale conjunctiva; Negative for scleral icterus Neck no lymphadenopathy, supple and no JVD Chest Wall inspection of chest normal and palpation of chest normal Resp normal respiratory effort and clear to auscultation bilaterally Cardio regular rate, S1 normal heart sound, S2 normal heart sound and no murmurs Rhythm: abnormal rhythm irregularly irregular GI normal to inspection, nondistended, normoactive bowel sounds, non-tender, non- distended and no masses; Negative for hepatosplenomegaly GI Narrative: There was no fissures fistulas or hemorrhoids noted on visualization of the anus. There is no palpable mass on digital exam. There is no material to test for blood. Back/Spine no CVA tenderness Extremity normal to inspection Neuro oriented x3 and CN's II-XII intact bilaterally Sensorium / Orientation: alert Psych mental status grossly normal Skin no rashes or lesions noted, no wounds and No skin turgor normal Skin Narrative: There is no erythema to the creases of her palms. General Skin Exam: pallor; Negative for jaundice MDM MDM MDM Narrative Medical decision making narrative: Suspect patient has symptomatic anemia due to GI blood loss. Lab Data Attestation: I reviewed the patient's lab results. Lab results narrative: CBC is marked for elevated white count of 12.1 with slight shift. H&H is 6.2 and 20.9 with an MCV of 95.9. This is significant drop from 1 month ago. This would explain her symptoms. Patient has been typed and screened. Will convert to typed and crossed 2 units and transfused blood. BUN to creatinine ratio is 37:1. BUN is 31 with a creatinine 0.83. This is consistent with a GI bleed. Glucose is elevated to 17 with normal CO2 anion gap. INR is 2.5. Labs: Laboratory Results - last 24 hr 05/27/24 12:50 WBC 12.1 H RBC 2.18 L Hgb 6.2 L Hct 20.9 L MCV 95.9 MCH 28.4 MCHC 29.7 L RDW Std Deviation 64.2 H RDW Coeff of Rodolfo 19.0 H Plt Count 229 MPV 10.8 Immature Gran % (Auto) 0.700 Neut % (Auto) 77.4 H Lymph % (Auto) 15.3 L [place] % (Auto) 5.4 Eos % (Auto) 1.0 Baso % (Auto) 0.2 Absolute Neuts (auto) 9.4 H Absolute Lymphs (auto) 1.85 Nucleated RBC % 0.2 PT 27.4 H INR 2.5 Sodium 139 Potassium 3.8 Chloride 107 Carbon Dioxide 30.0 Anion Gap 2 L BUN 31 H Creatinine 0.83 Estim Creat Clear Calc 48.84 Est GFR (MDRD) Af Amer 84 Est GFR (MDRD) Non-Af 69 BUN/Creatinine Ratio 37.4 H Glucose 217 H Calcium 8.7 Blood Type B POSITIVE Antibody Screen NEGATIVE Management Discussion w/another healthcare provider: Hospitalist (Patient admitted Dr. Dayana cantu. She requested vitamin K, FFP and Protonix was ordered as well. She was made aware of patient's history physical and my discussion with Dr. Arthur.) and [employer] (Spoke with Dr. Arthur. He will see patient in consultation. He was made aware of history, physical, PT/INR and laboratory results.) Critical Care Time Critical Care Time: Yes Critical care time (excluding procedures): 30-74 minutes (31), Including time spent: (History, physical, documentation, independent rotation laboratory results, discussion with data management consultant, hospitalist, informed patient that she requires transfusion), Discussing w/Patient &/or Family/Deputy Program Manager, Discussing w/Consultants and Arranging Admission or Transfer Discharge Plan Dx/Rx/DC Orders Clinical Impression: Signs and symptoms of anemia, Hyperlipidemia, Symptomatic anemia, Anemia due to blood loss, acute, Current use of anticoagulant therapy, Atrial fibrillation, Anemia requiring transfusions Disposition Disposition: Acute Care [facility]
[2024-05-27 13:08] LABS: International Normalized Ratio 2.5; Prothrombin Time (Protime)PT. 27.4 SECONDS (11.7-14.9)
[2024-05-27 13:12] LABS: Anion Gap 2 (5-15); BUN 31 mg/dL (7-18); BUN/Creat Ratio 37.4 RATIO (10-20); Calcium,Total 8.7 mg/dL (8.5-10.1); Chloride 107 mmol/L (98-107); Creatinine, Serum 0.83 mg/dL (0.55-1.02); EST Glomerular Filtration Rate 69 mL/min (>60); Est Glom Filt Rate - Afr Amer 84 mL/min (>60); Estimated Creatinine Clearance 48.84 ml/min; Glucose 217 mg/dL (74-106); Potassium 3.8 mmol/L (3.5-5.1); Sodium Level 139 mmol/L (136-145)
--- NOTE | 2024-05-27 13:46 | PCM.HP.STD ---
HPI - General General Date of Admission: 05/27/24 Date of Service: 05/27/24 Chief Complaint: LH, Dizziness, Black stools, Dyspnea. HPI Narrative The patient is an 88 y/o F w/ PMHx: Chronic anemia/Fe deficiency anemia, CKD stage II per GFR trending, PAF, ILD following with pulmonary medicine Dr. Lowery at [facility] felt possibly related to previous COVID-pneumonia diagnosis with chronic hypoxic respiratory failure with nightly 2L supplemental oxygen only, Hx SDH 03/2020 s/p bur hole surgery intervention/evacuation hematoma previously on Coumadin eventually transition to Xarelto unfortunately unable to utilize secondary to cost who presents to the [facility] ED on 05/27/2024 with history of dyspnea, dizziness, lightheadedness, weakness, palpitations starting over the weekend recently reporting antibiotic completion on Monday as well as ongoing steroid taper with last dose due on day of current presentation with reported outpatient unremarkable chest x-ray for possible URI/pulmonary infection that had been suspected at that time but given worsening symptoms prompted ED evaluation. Patient reported that in early April she had been diagnosed with anemia/iron deficiency anemia on 04/28/2024 and was tried initially on oral iron but did not improve at all and was then administered 5 IV iron transfusions. She does report that she has had mild congestion however this is chronic but has been worse over the last 2 weeks with occasional cough that has consistently been nonproductive. Patient does report black-colored stools that started approximately 1 week prior to current presentation with no associated abdominal pain or any nausea or emesis. Workup in the ED included T97.8, heart rate 63, BP 125/46, respiratory rate 20, 100% on room air, orthostatics not marked appearing with most recent repeat vitals heart rate 85, BP 120/67, respiratory rate 18, 100% room air, CBC with WBC 12.1, hemoglobin 6.2, MCV 95.9, platelet 229 with left shift, coags with INR 2.5, BMP with BUN/creatinine 31/0.3, GFR 69, glucose 217. In the ED 2 unit PRBC type and cross per ED physician. ED discussed case with gastroenterology Dr. Arthur. In the ED patient administered vitamin K 5 mg IV x 1 in addition to fresh frozen plasma and Protonix 80 mg IV bolus x 1. [facility] Medical History Pneumonia due to COVID-19 virus CKD (chronic kidney disease), stage II Chronic hypoxic respiratory failure Subdural hematoma (04/09/20) Insomnia Paroxysmal atrial fibrillation Hyperlipidemia Interstitial lung disease Home Medications ?Medication ?Instructions ?Recorded ?Last Taken ?Type metoprolol tartrate 25 mg tablet 12.5 mg PO BID 05/28/19 05/27/24 History zolpidem 5 mg tablet (Ambien) 5 mg PO QHS PRN Sleep 05/28/19 Unknown History cholecalciferol (vitamin D3) 25 25 mcg PO DAILY 12/02/20 05/26/24 History mcg (1,000 unit) capsule magnesium oxide 400 mg (241.3 mg 400 mg PO DAILY 06/04/21 05/26/24 History magnesium) tablet warfarin 5 mg tablet 5 mg PO DAILY 06/04/21 05/26/24 History mecobalamin (vitamin B12) 1,000 1,000 mcg PO DAILY 08/29/22 05/26/24 History mcg chewable tablet atorvastatin 20 mg tablet 20 mg PO QHS #90 tabs 08/28/23 05/26/24 Rx flecainide 50 mg tablet 25 mg (1/2 x 50 mg) PO Q12H #90 03/11/24 05/27/24 Rx tabs benzonatate 100 mg capsule 100 mg PO TID PRN cough 05/27/24 05/26/24 History furosemide 20 mg tablet 10 - 20 mg PO DAILY PRN swelling 05/27/24 05/26/24 History guaifenesin 600 mg tablet, 1,200 mg PO BID 05/27/24 05/26/24 History extended release 12 hr prednisone 10 mg tablet 10 mg PO DAILY 05/27/24 05/27/24 History zinc gluconate 50 mg tablet 50 mg PO DAILY 05/27/24 05/26/24 History Allergy/AdvReac Type Severity Reaction Status Date / Time Iodine and Iodide Containing Allergy hives Verified 05/27/24 12:15 Produc Family History Sister Colon cancer Cancer lung Sister Colon cancer Sister Colon cancer Sister Colon cancer Mother Hypertension Father CVA (cerebral vascular accident) Other Heart disease Surgical History History of jason hole surgery (03/2020) History of cataract surgery History of hysterectomy History of lumbar laminectomy Social History (Updated 05/27/24 @ 14:[address] Chanel Anne MD) household members: none Smoking Status: Never smoker alcohol intake: never substance use type: does not use ROS ROS Narrative Admission Review of Systems: CONSTITUTIONAL: No weight loss, fever, chills. + weakness or fatigue. HEENT: + Lightheadedness, dizziness, congestion. Eyes: No visual loss, blurred vision, double vision or yellow sclerae. Ears, Nose, Throat: No hearing loss, sneezing, sore throat. SKIN: No rash or itching, lesions, wounds. CARDIOVASCULAR: No chest pain, chest pressure or chest discomfort, palpitations, edema, orthopnea, syncopal events. RESPIRATORY: + Dyspnea, nonproductive cough. No wheezing, hemoptysis. GASTROINTESTINAL: + Dark black-colored stools. No anorexia, nausea, vomiting or diarrhea, abdominal pain, BRBPR. GENITOURINARY: No dysuria, frequency, urgency or retention. NEUROLOGICAL: + Lightheadedness, dizziness. No headache, paralysis, ataxia, numbness or tingling in the extremities, focal weakness, change in bowel or bladder control, seizure. MUSCULOSKELETAL: + muscle, back pain, joint pain or stiffness. HEMATOLOGIC: + Chronic anemia, easy bleeding/bruising. LYMPHATICS: No enlarged nodes. No history of splenectomy. PSYCHIATRIC: No history of depression or anxiety. ENDOCRINOLOGIC: No reports of sweating, cold or heat intolerance. No polyuria or polydipsia. ALLERGIES: + History of hives. Vital Signs Vital Signs Vital Signs: 05/27/24 12:15 05/27/24 12:17 05/27/24 12:55 Temperature 97.8 F 98 F Temperature Source Oral Oral Pulse Rate 63 60 Pulse Rate [Lying] 61 Pulse Rate [Sitting (for 1 minute prior to obtaining)] 65 Pulse Rate [Standing (for 1 minute prior to obtaining)] 64 Respiratory Rate 20 H 20 H Blood Pressure 125/46 H 124/45 H Blood Pressure [Lying] 120/46 L Blood Pressure [Sitting (for 1 minute prior to obtaining)] 128/49 H Blood Pressure [Standing (for 1 minute prior to obtaining)] 116/52 L Blood Pressure Mean 72 71 Blood Pressure Mean [Lying] 70 Blood Pressure Mean [Sitting (for 1 minute prior to obtaining)] 75 Blood Pressure Mean [Standing (for 1 minute prior to obtaining)] 73 Pulse Ox 100 100 Oxygen Delivery Method Room Air Room Air 05/27/24 13:00 05/27/24 13:15 Temperature 98 F Temperature Source Temporal Pulse Rate 85 63 Pulse Rate [Lying] Pulse Rate [Sitting (for 1 minute prior to obtaining)] Pulse Rate [Standing (for 1 minute prior to obtaining)] Respiratory Rate 18 20 H Blood Pressure 120/67 120/59 L Blood Pressure [Lying] Blood Pressure [Sitting (for 1 minute prior to obtaining)] Blood Pressure [Standing (for 1 minute prior to obtaining)] Blood Pressure Mean 84 79 Blood Pressure Mean [Lying] Blood Pressure Mean [Sitting (for 1 minute prior to obtaining)] Blood Pressure Mean [Standing (for 1 minute prior to obtaining)] Pulse Ox 100 100 Oxygen Delivery Method Nasal Cannula Weight Weight: 161 lb Body Mass Index (BMI) 25.9 Physical Exam Narrative Physical Examination: General: Awake, alert, oriented x 3 and cooperative, seated upright in the bed, no acute distress Skin: Normal color, normal turgor, no icterus, no cyanosis except for occasional stage ecchymoses. HEENT: AT/NC, EOMI, PERRLA, mildly dry MM, no carotid bruits or JVD noted. Lungs: Mildly diminished, greater bases, mild crackles at bases but suspect this is likely baseline given interstitial lung disease history, no rales, ronchi or wheezing. Heart: Regular rate and rhythm; no gallop, rub audible. Abdomen: Soft, NTTP, ND, hyperactive BS, no appreciated HSM. Extremities: No cyanosis, no clubbing, mild ankle to distal fonseca not markedly pitting edema. Neurological: Patient awake, alert, oriented as noted, cognitive function intact; pupils equally reactive to light and accommodation, cranial nerves grossly normal, moving all 4 extremities, no focal deficits, strength moderately to severely globally decreased. Psychiatric: Affect appears fatigued otherwise normal, no acute evidence of depressive or anxiety feelings. Results Lab / Micro Data 05/27/24 12:50 05/27/24 12:50 Labs: Laboratory Results - last 24 hr 05/27/24 12:50: WBC 12.1 H, RBC 2.18 L, Hgb 6.2 L, Hct 20.9 L, MCV 95.9, MCH 28.4, MCHC 29.7 L, RDW Std Deviation 64.2 H, RDW Coeff of Rodolfo 19.0 H, Plt Count 229, MPV 10.8, Immature Gran % (Auto) 0.700, Neut % (Auto) 77.4 H, Lymph % (Auto) 15.3 L, [place] % (Auto) 5.4, Eos % (Auto) 1.0, Baso % (Auto) 0.2, Absolute Neuts (auto) 9.4 H, Absolute Lymphs (auto) 1.85, Nucleated RBC % 0.2, PT 27.4 H, INR 2.5, Sodium 139, Potassium 3.8, Chloride 107, Carbon Dioxide 30.0, Anion Gap 2 L, BUN 31 H, Creatinine 0.83, Estim Creat Clear Calc 48.84, Est GFR (MDRD) Af Amer 84, Est GFR (MDRD) Non-Af 69, BUN/Creatinine Ratio 37.4 H, Glucose 217 H, Calcium 8.7, Blood Type B POSITIVE, Antibody Screen NEGATIVE Assessment & Plan Assessment/Plan (1) Anemia due to blood loss, acute: PLAN: Plan The patient is an 88 y/o F w/ PMHx: CKD stage II per GFR trending, PAF, ILD following with pulmonary medicine Dr. Lowery at [facility] felt possibly related to previous COVID-pneumonia diagnosis with chronic hypoxic respiratory failure with nightly supplemental oxygen only, Hx SDH 03/2020 s/p bur hole surgery intervention/evacuation hematoma previously on Coumadin eventually transition to Xarelto unfortunately unable to utilize secondary to cost who presents to the [facility] ED on 05/27/2024 with history of dyspnea, dizziness, lightheadedness, weakness, palpitations starting over the weekend recently reporting antibiotic completion on Monday for a pulmonary type of infection but given worsening symptoms prompted ED evaluation. #1. Acute GI Bleed w/ resultant Acute Blood Loss Anemia on chronic normocytic anemia noted remotely exacerbated by coagulopathy secondary to Coumadin: Admission hemoglobin 6.2 significantly decreased from most recently noted previous 04/17/2022 hemoglobin 11.5 at that time. Will admit to medical surgical floor given stable vital signs, maintain on fall precautions, continue serial H&H assessments, maintain on IV Protonix, continue plan PRBC administration initiated per ED, will allow clears until n.p.o. status at midnight, GI consulted. #2. Recent questionable upper respiratory infection, bronchitis, uncertain specific etiology: Patient was treated with course of antibiotics of unclear type as well as steroid taper and reports she has 1 last dose that she would have taken on day of presentation with unremarkable outpatient chest x-ray per report. Given her current presentation with no marked purulent cough, afebrile do suspect likely her dyspnea that is been persistent is secondary to #1. #3. Hyperglycemia, possibly stress response: Admission glucose 217, no diabetic history, will obtain hemoglobin A1c to be cautious. #4. Chronic Kidney Disease Stage II per GFR trend: Admission BUN/Cr 31/0.83, GFR 69, baseline renal function 0.7-0.9 primarily, repeat BMP in AM. #5. ILD with chronic hypoxic respiratory failure nightly supplementation only: Following pulm and medicine Dr. Lowery at [facility], felt likely related to previous COVID-pneumonia will, maintain on oxygen nightly as previously, PRN albuterol, HOB, IS parameters. #6. PAF: We will continue patient home metoprolol, flecainide home regimen, holding Coumadin given significant anemia with reversal with INR trending. #7. Hyperlipidemia: We will continue patient on statin therapy. #8. Chronic insomnia: Given presentation and significantly advanced age will hold nightly as needed Ambien. #9. History subdural hematoma with subarachnoid hemorrhage per chart: 03/2020 occurrence requiring transfer to tertiary facility with bur hole surgery/evacuation per records while she had been on Coumadin with eventual transition once cleared to Xarelto but inhibitive cost was not using. #10. DVT prophylaxis: SCDs, holding Coumadin with reversal with INR trending given significantly reduced hemoglobin. #11. CODE status: Patient HCPOA are her 2 sons and living will is currently in place. Discussed CODE status at length including difference between FULL code, DNR-CCA and DNR-CC status. Following discussions about the differences in these status, requested Full Code status. Advanced Care Planning Face to Face Time: 16 minutes. Charges/Coding Visit Charges Inpatient E&M: 30743 Init Hosp L3 Procedures Hospitalists Procedures: 76825 Advncd Care Plan 30 Min
[2024-05-27] MEDS: Phytonadione (Vit K) 5 MG in 0.9% Normal Saline (50mL Bag) 50 ML 150 MG IV (14:30)
[2024-05-27] MEDS: Pantoprazole Sodium 80 MG in 0.9% Normal Saline (50mL Bag) 15 ML 420 MG IV BOLUS (14:30)
[2024-05-27 15:41] LABS: International Normalized Ratio 2.3; Prothrombin Time (Protime)PT. 25.9 SECONDS (11.7-14.9)
--- NOTE | 2024-05-27 16:15 | CON.PCM.GI_ITS ---
HPI Consult Data Date of Consult: 05/27/24 HPI Narrative Reason for Consultation: GI bleed HPI Narrative: MARTINE KERN, is a 88 y/o F presents with shortness of breath. She came to the ED with complaints of dyspnea, dizziness, lightheadedness, weakness, palpitations starting over the weekend recently reporting antibiotic completion on Monday as well as ongoing steroid taper with last dose due on day of current presentation with reported outpatient unremarkable chest x-ray for possible URI/pulmonary infection that had been suspected at that time but given worsening symptoms prompted ED evaluation. Patient reported that in early April she had been diagnosed with anemia/iron deficiency anemia on 04/28/2024 and was tried initially on oral iron but did not improve at all and was then administered 5 IV iron transfusions. She does report that she has had mild congestion however this is chronic but has been worse over the last 2 weeks with occasional cough that has consistently been nonproductive. Patient does report black-colored stools that started approximately 1 week prior to current presentation with no associated abdominal pain or any nausea or emesis. Workup in the ED included T97.8, heart rate 63, BP 125/46, respiratory rate 20, 100% on room air, orthostatics not marked appearing with most recent repeat vitals heart rate 85, BP 120/67, respiratory rate 18, 100% room air, CBC with WBC 12.1, hemoglobin 6.2, MCV 95.9, platelet 229 with left shift, coags with INR 2.5, BMP with BUN/creatinine 31/0.3, GFR 69, glucose 217. In the ED 2 unit PRBC type and cross per ED physician. ED discussed case with gastroenterology Dr. Arthur. In the ED patient administered vitamin K 5 mg IV x 1 in addition to fresh frozen plasma and Protonix 80 mg IV bolus x 1. FOR[facility]LY [facility] Medical History Pneumonia due to COVID-19 virus CKD (chronic kidney disease), stage II Chronic hypoxic respiratory failure Subdural hematoma (04/09/20) Insomnia Paroxysmal atrial fibrillation Hyperlipidemia Interstitial lung disease Home Medications ?Medication ?Instructions ?Recorded ?Last Taken ?Type metoprolol tartrate 25 mg tablet 12.5 mg PO BID 05/28/19 05/27/24 History zolpidem 5 mg tablet (Ambien) 5 mg PO QHS PRN Sleep 05/28/19 Unknown History cholecalciferol (vitamin D3) 25 25 mcg PO DAILY 12/02/20 05/26/24 History mcg (1,000 unit) capsule magnesium oxide 400 mg (241.3 mg 400 mg PO DAILY 06/04/21 05/26/24 History magnesium) tablet warfarin 5 mg tablet 5 mg PO DAILY 06/04/21 05/26/24 History mecobalamin (vitamin B12) 1,000 1,000 mcg PO DAILY 08/29/22 05/26/24 History mcg chewable tablet atorvastatin 20 mg tablet 20 mg PO QHS #90 tabs 08/28/23 05/26/24 Rx flecainide 50 mg tablet 25 mg (1/2 x 50 mg) PO Q12H #90 03/11/24 05/27/24 Rx tabs benzonatate 100 mg capsule 100 mg PO TID PRN cough 05/27/24 05/26/24 History furosemide 20 mg tablet 10 - 20 mg PO DAILY PRN swelling 05/27/24 05/26/24 History guaifenesin 600 mg tablet, 1,200 mg PO BID 05/27/24 05/26/24 History extended release 12 hr prednisone 10 mg tablet 10 mg PO DAILY 05/27/24 05/27/24 History zinc gluconate 50 mg tablet 50 mg PO DAILY 05/27/24 05/26/24 History Allergy/AdvReac Type Severity Reaction Status Date / Time Iodine and Iodide Containing Allergy hives Verified 05/27/24 12:15 Produc Family History Sister Colon cancer Cancer lung Sister Colon cancer Sister Colon cancer Sister Colon cancer Mother Hypertension Father CVA (cerebral vascular accident) Other Heart disease Surgical History History of jason hole surgery (03/2020) History of cataract surgery History of hysterectomy History of lumbar laminectomy Social History household members: none Smoking Status: Never smoker alcohol intake: never substance use type: does not use ROS ROS Narrative Admission Review of Systems: CONSTITUTIONAL: No weight loss, fever, chills. + weakness or fatigue. HEENT: + Lightheadedness, dizziness, congestion. Eyes: No visual loss, blurred vision, double vision or yellow sclerae. Ears, Nose, Throat: No hearing loss, sneezing, sore throat. SKIN: No rash or itching, lesions, wounds. CARDIOVASCULAR: No chest pain, chest pressure or chest discomfort, palpitations, edema, orthopnea, syncopal events. RESPIRATORY: + Dyspnea, nonproductive cough. No wheezing, hemoptysis. GASTROINTESTINAL: + Dark black-colored stools. No anorexia, nausea, vomiting or diarrhea, abdominal pain, BRBPR. GENITOURINARY: No dysuria, frequency, urgency or retention. NEUROLOGICAL: + Lightheadedness, dizziness. No headache, paralysis, ataxia, numbness or tingling in the extremities, focal weakness, change in bowel or bladder control, seizure. MUSCULOSKELETAL: + muscle, back pain, joint pain or stiffness. HEMATOLOGIC: + Chronic anemia, easy bleeding/bruising. LYMPHATICS: No enlarged nodes. No history of splenectomy. PSYCHIATRIC: No history of depression or anxiety. ENDOCRINOLOGIC: No reports of sweating, cold or heat intolerance. No polyuria or polydipsia. ALLERGIES: + History of hives. Physical Exam Narrative Physical Examination: General: Awake, alert, oriented x 3 and cooperative, seated upright in the bed, no acute distress Skin: Normal color, normal turgor, no icterus, no cyanosis except for occasional stage ecchymoses. HEENT: AT/NC, EOMI, PERRLA, mildly dry MM, no carotid bruits or JVD noted. Lungs: Mildly diminished, greater bases, mild crackles at bases but suspect this is likely baseline given interstitial lung disease history, no rales, ronchi or wheezing. Heart: Regular rate and rhythm; no gallop, rub audible. Abdomen: Soft, NTTP, ND, hyperactive BS, no appreciated HSM. Extremities: No cyanosis, no clubbing, mild ankle to distal fonseca not markedly pitting edema. Neurological: Patient awake, alert, oriented as noted, cognitive function intact; pupils equally reactive to light and accommodation, cranial nerves grossly normal, moving all 4 extremities, no focal deficits, strength moderately to severely globally decreased. Psychiatric: Affect appears fatigued otherwise normal, no acute evidence of depressive or anxiety feelings. Lab / Micro Data 05/27/24 12:50 05/27/24 12:50 Labs: Laboratory Results - last 24 hr 05/27/24 12:50: WBC 12.1 H, RBC 2.18 L, Hgb 6.2 L, Hct 20.9 L, MCV 95.9, MCH 28.4, MCHC 29.7 L, RDW Std Deviation 64.2 H, RDW Coeff of Rodolfo 19.0 H, Plt Count 229, MPV 10.8, Immature Gran % (Auto) 0.700, Neut % (Auto) 77.4 H, Lymph % (Auto) 15.3 L, Ida % (Auto) 5.4, Eos % (Auto) 1.0, Baso % (Auto) 0.2, Absolute Neuts (auto) 9.4 H, Absolute Lymphs (auto) 1.85, Nucleated RBC % 0.2, PT 27.4 H, INR 2.5, Sodium 139, Potassium 3.8, Chloride 107, Carbon Dioxide 30.0, Anion Gap 2 L, BUN 31 H, Creatinine 0.83, Estim Creat Clear Calc 48.84, Est GFR (MDRD) Af Amer 84, Est GFR (MDRD) Non-Af 69, BUN/Creatinine Ratio 37.4 H, Glucose 217 H, Calcium 8.7, Blood Type B POSITIVE, Antibody Screen NEGATIVE, Crossmatch See Detail 05/27/24 15:13: PT 25.9 H, INR 2.3 Assessment & Plan Assessment/Plan (1) Anemia due to blood loss, acute: PLAN: Plan The patient is an 88 y/o F with dyspnea, dizziness, lightheadedness, weakness, palpitations starting over the weekend recently reporting antibiotic completion on Monday for a pulmonary type of infection but given worsening symptoms prompted ED evaluation. She was discovered to have acute GI Bleed w/ resultant Acute Blood Loss Anemia on chronic normocytic anemia noted remotely exacerbated by coagulopathy secondary to Coumadin. Her admission hemoglobin 6.2 significantly decreased from most recently noted previous 04/17/2022 hemoglobin 11.5 at that time. She will need to undergo an upper endoscopy and possible colonoscopy to evaluate her GI tract. She was explained alternatives, risk and benefits include not withstanding bleeding, infection, sepsis, perforation, need for charge and . She will have an ASA of 3. Charges/Coding Visit Charges Inpatient E&M: 91792 Init Hosp L2
--- NOTE | 2024-05-27 17:17 | PRE.ANES_ITS ---
ASA Classification* ASA Classification ASA Classification: 3 and E Assessment & Plan Anesthesia* Anesthesia Assessment Anesthesia Assessment: Discussed sedation and/or anesthesia options, risks, benefits, and alternatives with patient/parents/legal guardian/POA. Questions invited. The patient/parents/legal guardian/POA seems to understand and agrees to proceed with anesthesia plan. Reviewed the physical assessment, medical history, allergy history and patient home medications list prior to surgery/procedure/anesthetic and documented any changes. Performed airway and anesthesia risk assessments. Anesthesia Type Anesthesia Type: MAC (patient is currently receiving 2 units prbc's) Anesthesia Focused Assessment* Temperature: 98.4 F Pulse Rate: 73 Blood Pressure: 155/63 Respiratory Rate: 18 Pulse Ox: 100 Airway Assessment Mouth opens: >3 cm Mallampati Score: II Focused Labs Anesthesia Preop lab: CBC WBC 12.1 K/mm3 (4.4-11.0) H 05/27/24 12:50 RBC 2.18 M/mm3 (4.2-5.4) L 05/27/24 12:50 Hgb 6.2 g/dL (12.0-15.0) L 05/27/24 12:50 Hct 20.9 % (37-47) L 05/27/24 12:50 Plt Count 229 K/mm3 (150-450) 05/27/24 12:50 CHEMISTRY Potassium 3.8 mmol/L (3.5-5.1) 05/27/24 12:50 Sodium 139 mmol/L (136-145) 05/27/24 12:50 Magnesium 2.0 mg/dL (1.6-2.6) 05/27/24 12:50 BUN 31 mg/dL (7-18) H 05/27/24 12:50 Creatinine 0.83 mg/dL (0.55-1.02) 05/27/24 12:50 Glucose 217 mg/dL (74-106) H 05/27/24 12:50 TSH 2.22 uIU/mL (0.358-3.74) 11/13/19 08:47 COAG PT 25.9 SECONDS (11.7-14.9) H 05/27/24 15:13 Pre-Assessment Diagnosis/Proposed Procedure Planned Operative Procedure(s): EGD Anesthesia History Anesthesia History - direct sales representative: Anesthesia History - direct sales representative Hx Hospitalization Any Problems With Anesthesia Cholinesterase deficiency You/Your Family Experience fever (hyperthermia) with Relationship Recent Exposure to Contagious Disease Does patient have nerve stimulator Patient instructed to have device shut off --Does patient have Pacemaker or ICD? When Was Last Pacemaker Check QUESTION #4 FULL TEXT: You/Your Family Experience fever (hyperthermia) with Anesthesia Last Oral Intake Last Oral intake: Last Oral Intake NPO since Meds taken in AM with sips of water? Meds patient instructed to take am of surgery PONV PONV - direct sales representative: PONV - direct sales representative Female HX of Motion Sickness HX of N/V After Surgery Non-Smoker Duration of Surgery greater than 60 minutes Number of Risk Factors PONV Score Height & Weight Height & Weight: Anesthesia: Height & Weight Height 5 ft 6 in 05/27/24 14:50 Weight: 72.4 kg 05/27/24 14:50 Body Mass Index (BMI) 25.7 05/27/24 14:50 Respiratory Assessment Respiratory Assessment - direct sales representative: Respiratory Tract Infection Hx - direct sales representative Hx Respiratory Tract Infection STOP Sleep Apnea STOP Sleep Apnea - direct sales representative: STOP Sleep Apnea - direct sales representative Hx Hypertension Yes 05/27/24 14:53 Hx Sleep Apnea No 05/27/24 14:53 CPAP BIPAP Do you snore loudly (louder No 05/27/24 14:53 than talking or can be heard Do you often feel tired/ No 05/27/24 14:53 fatigued/ sleepy during daytime? Has anyone observed you stop No 05/27/24 14:53 breathing during sleep? STOP Results Negative 05/27/24 14:53 QUESTION #5 FULL TEXT : Do you snore loudly (louder than talking or can be heard through closed doors)? Tobacco Use History Tobacco Use History - direct sales representative: Tobacco Use History - direct sales representative Tobacco Use Smoking Status Never smoker 05/27/24 14:53 Hx Tobacco Use No 05/27/24 14:53 Years Smoking Packs Smoked per Day Smoking Cessation Date was within the last 15 years Hx Smoking Cessation Date Hx Smoking Cessation Counseling Hematologic Medial History Hematologic Hx - direct sales representative: Hematologic Medical Hx - practice advisor Hx of Blood Transfusion No 05/27/24 14:53 Hx of Transfusion in last 3 No 05/27/24 14:53 Months Date of Last Transfusion (if within last 3 months) Ever experience any problems No 05/27/24 14:53 with transfusion(s)? Specify any problems Hx of Preganancy in last 3 N/A 05/27/24 14:53 Months Nurse Filling Out Transfusion [email or web address] 05/27/24 14:53 & Questions: Date: 05/27/24 05/27/24 14:53 Time: 14:55 05/27/24 14:53 Patient unable to answer at this time (ie. confused, unrespo /Reproduction History /Reproductive History - direct sales representative: /Reproductive Hx- direct sales representative Hx Now Gestational Age (in weeks): EDC: Hx Hx Para Hx Section SAB Active Medications Active Medications: Current Medications Generic Name Dose Route Start Last Admin Trade Name Freq PRN Reason Stop Dose Admin Acetaminophen 650 mg 05/27/24 14:50 Acetaminophen 325 Mg Tablet PO Q4H PRN PRN Fever, pain 1-02/28 Albuterol Sulfate 2.5 mg 05/27/24 14:50 Albuterol 2.5 Mg/3 Ml Vial.Neb. INHALATION Q2H PRN PRN Dyspnea, wheezing Atorvastatin Calcium 20 mg 05/27/24 22:00 Atorvastatin Calcium 20 Mg Tablet PO QHS FRAN Benzonatate 100 mg 05/27/24 22:00 Benzonatate 100 Mg Capsule PO TID PRN cough Flecainide Acetate 25 mg 05/27/24 22:00 Flecainide 100 Mg Tablet PO Q12 FRAN Guaifenesin 20 ml 05/27/24 14:50 Guaifenesin 10 Ml Udc (200mg/10ml) PO Q4H PRN PRN COUGH Guaifenesin 1,200 mg 05/27/24 22:00 Guaifenesin 1,200 Mg Tablet PO BID FRAN Hydralazine HCl 10 mg 05/27/24 14:50 Hydralazine 20 Mg/Ml Vial IV Q4H PRN PRN SBP > 160 Protocol Pantoprazole Sodium 80 mg/ 100 mls @ 10 mls/hr 05/27/24 16:00 Sodium Chloride CONT INF Q10H FRAN Sodium Chloride 100 mls @ 15 mls/hr 05/27/24 15:12 IV .Q6H40M PRN SALINE FLUSH Melatonin 3 mg 05/27/24 14:50 Melatonin 3 Mg Tablet PO QHS PRN PRN INSOMNIA Metoprolol Tartrate 12.5 mg 05/27/24 22:00 Metoprolol Tartrate 25 Mg Tablet PO BID [facility] Protocol Ondansetron HCl 4 mg 05/27/24 14:50 Ondansetron 4 Mg/2 Ml Vial IV Q8H PRN PRN NAUSEA/VOMITING Prochlorperazine Edisylate 5 mg 05/27/24 14:50 Prochlorperazine 10 Mg/2 Ml Vial IV Q4H PRN PRN Breakthrough Nausea/Vomiting Sodium Chloride 10 - 40 ml 05/27/24 15:12 0.9% Saline Lock 10 Ml Syringe IV UD PRN SALINE FLUSH PFSH Medical History Pneumonia due to COVID-19 virus CKD (chronic kidney disease), stage II Chronic hypoxic respiratory failure Subdural hematoma (04/09/20) Insomnia Paroxysmal atrial fibrillation Hyperlipidemia Interstitial lung disease Home Medications ?Medication ?Instructions ?Recorded ?Last Taken ?Type metoprolol tartrate 25 mg tablet 12.5 mg PO BID 05/28/19 05/27/24 History zolpidem 5 mg tablet (Ambien) 5 mg PO QHS PRN Sleep 05/28/19 Unknown History cholecalciferol (vitamin D3) 25 25 mcg PO DAILY 12/02/20 05/26/24 History mcg (1,000 unit) capsule magnesium oxide 400 mg (241.3 mg 400 mg PO DAILY 06/04/21 05/26/24 History magnesium) tablet warfarin 5 mg tablet 5 mg PO DAILY 06/04/21 05/26/24 History mecobalamin (vitamin B12) 1,000 1,000 mcg PO DAILY 08/29/22 05/26/24 History mcg chewable tablet atorvastatin 20 mg tablet 20 mg PO QHS #90 tabs 08/28/23 05/26/24 Rx flecainide 50 mg tablet 25 mg (1/2 x 50 mg) PO Q12H #90 03/11/24 05/27/24 Rx tabs benzonatate 100 mg capsule 100 mg PO TID PRN cough 05/27/24 05/26/24 History furosemide 20 mg tablet 10 - 20 mg PO DAILY PRN swelling 05/27/24 05/26/24 History guaifenesin 600 mg tablet, 1,200 mg PO BID 05/27/24 05/26/24 History extended release 12 hr prednisone 10 mg tablet 10 mg PO DAILY 05/27/24 05/27/24 History zinc gluconate 50 mg tablet 50 mg PO DAILY 05/27/24 05/26/24 History Allergy/AdvReac Type Severity Reaction Status Date / Time Iodine and Iodide Containing Allergy hives Verified 05/27/24 12:15 Produc Family History Sister Colon cancer Cancer lung Sister Colon cancer Sister Colon cancer Sister Colon cancer Mother Hypertension Father CVA (cerebral vascular accident) Other Heart disease Surgical History History of jason hole surgery (03/2020) History of cataract surgery History of hysterectomy History of lumbar laminectomy Social History household members: none Smoking Status: Never smoker alcohol intake: never substance use type: does not use Review of Systems (Anesthesia) ROS Narrative System reviewed and no additional complaints, except as documented.
--- NOTE | 2024-05-27 18:01 | OP.EGD_ITS ---
Patient Name: Leatha Reddy Procedure Date: 05/27/2024 5:34 PM Date of : 1935 Age: 88 Procedure: Upper GI endoscopy Indications: Iron deficiency anemia, Melena Providers: Faustino Arthur DO Referring MD: Rancho Jordan MD Medicines: Monitored Anesthesia Care Patient Profile: This is an 88 year old female. Refer to note in patient chart for documentation of history and physical. Patient has symptoms of acute nausea. Complications: No immediate complications. Procedure: Pre-Anesthesia Assessment: - Prior to the procedure, a History and Physical was performed, and patient medications and allergies were reviewed. The patient is competent. The risks and benefits of the procedure and the sedation options and risks were discussed with the patient. All questions were answered and informed consent was obtained. Patient identification and proposed procedure were verified by the physician. Mental Status Examination: alert and oriented. Airway Examination: normal oropharyngeal airway and neck mobility. Respiratory Examination: clear to auscultation. CV Examination: normal. Prophylactic Antibiotics: The patient does not require prophylactic antibiotics. Prior Anticoagulants: The patient has taken no anticoagulant or antiplatelet agents. ASA Grade Assessment: II - A patient with mild systemic disease. After reviewing the risks and benefits, the patient was deemed in satisfactory condition to undergo the procedure. The anesthesia plan was to use monitored anesthesia care (MAC). Immediately prior to administration of medications, the patient was re-assessed for adequacy to receive sedatives. The heart rate, respiratory rate, oxygen saturations, blood pressure, adequacy of pulmonary ventilation, and response to care were monitored throughout the procedure. The physical status of the patient was re-assessed after the procedure. After obtaining informed consent, the endoscope was passed under direct vision. Throughout the procedure, the patient's blood pressure, pulse, and oxygen saturations were monitored continuously. The Endoscope was introduced through the mouth, and advanced to the second part of duodenum. The upper GI endoscopy was accomplished without difficulty. The patient tolerated the procedure well. Scope In: 5:48:08 PM Scope Out: 5:54:36 PM Total Procedure Duration Time 0 hours 6 minutes 28 seconds Findings: A low-grade of narrowing Schatzki ring was found at the gastroesophageal junction. Coagulation for tissue destruction using argon plasma at 0.3 liters/minute and 20 hassan was successful. A large hiatal hernia was present. Few oozing cratered gastric ulcers with pigmented material were found in the cardia. The largest lesion was 6 mm in largest dimension. Coagulation for hemostasis using argon beam at 0.4 liters/minute and 30 hassan was successful. Estimated blood loss was minimal. No gross lesions were noted in the first portion of the duodenum. Impression: - Low-grade of narrowing Schatzki ring. Treated with argon plasma coagulation (APC). - Large hiatal hernia. - Oozing gastric ulcers with pigmented material. Treated with argon beam coagulation. - No gross lesions in the first portion of the duodenum. - No specimens collected. Recommendation: - Return patient to [facility] for [facility] care. - Use Protonix (pantoprazole) 40 mg PO BID. - Continue present medications. Procedure Code(s): --- Professional --- 41118, Esophagogastroduodenoscopy, flexible, transoral; with ablation of tumor(s), polyp(s), or other lesion(s) (includes pre- and post-dilation and guide wire passage, when performed) 89447, 59,51, Esophagogastroduodenoscopy, flexible, transoral; with control of bleeding, any method CPT copyright 2021 [employer]. All rights reserved. The codes documented in this report are preliminary and upon flash drier operator review may be revised to meet current compliance requirements. Faustino Arthur DO 05/27/2024 6:00:34 PM This report has been signed electronically. Number of Addenda: 0 Note Initiated On: 05/27/2024 5:34 PM
--- NOTE | 2024-05-27 18:01 | OP.CCLET_ITS ---
05/27/2024 Larry Fajardo [address] [place] [address] Re : Upper GI endoscopy procedure for Leatha Barry Dear Dr. Fajardo This procedure was performed on Monday, May 27, 2024. My impressions and recommendations are as follows: Impressions : - Low-grade of narrowing Schatzki ring. Treated with argon plasma coagulation (APC). - Large hiatal hernia. - Oozing gastric ulcers with pigmented material. Treated with argon beam coagulation. - No gross lesions in the first portion of the duodenum. - No specimens collected. Recommendations : - Return patient to [facility] for ongoing care. - Use Protonix (pantoprazole) 40 mg PO BID. - Continue present medications. My findings are described in the full procedure note, which is enclosed. If I can be of further assistance, please feel free to contact me at . Sincerely, Faustino Friend, DO 05/27/2024 6:00:34 PM This report has been signed electronically.
--- NOTE | 2024-05-27 18:06 | PCM.POST.ANE ---
Anesthesia: Postop Eval I Current Vital Signs Temperature: 97.9 F Pulse Rate: 68 Blood Pressure: 115/66 Respiratory Rate: 16 Pulse Ox: 100 Oxygen Delivery Method: Room Air Assessment Airway patent: Yes Spontaneous unlabored respirations: Yes Mental status: Awake nausea: No Vomiting: No Anesthesia Complication: No Fluid Hydration Crystalloid volume administer (ml): 30 Total IV fluid infused: 30 Progress Note Anesthesia document: Postop Eval 1 completed: Yes
[2024-05-27] MEDS: 0.9% Saline Lock 10 ML Syringe IV ×2 (20:47→21:20)
[2024-05-27] MEDS: Flecainide 100 MG Tablet 25 MG PO (21:20)
[2024-05-27] MEDS: Metoprolol Tartrate 25 MG Tablet 12.5 MG PO (21:21)
[2024-05-27] MEDS: Atorvastatin Calcium 20 MG Tablet PO (21:21)
[2024-05-27] MEDS: Pantoprazole Sodium 80 MG in 0.9% Normal Saline (100mL Bag) 80 ML 10 MG CONT INF (21:22)
[2024-05-28] VITALS (11 sets, daily range): BP systolic 107–150; BP diastolic 46–73; PULSE 67–87; RESP 16–18; TEMP 36.1–36.8; O2SAT 97–100; BMI 26.2
[2024-05-28 00:22] LABS: Hematocrit 29.5 % (37-47); Hemoglobin 9.6 g/dL (12.0-15.0)
[2024-05-28 04:09] LABS: Absolute Lymphocyte Count 1.34 X10^3/uL (0.83-4.51); Absolute Neutrophil Count 8.1 X10^3/uL (2.0-7.7); Basophil# 0.01 X10^3/uL; Basophil% 0.1 % (0-1); Hematocrit 26.6 % (37-47); Hemoglobin 8.6 g/dL (12.0-15.0); Lymphocyte # 1.34 X10^3/ul (0.83-4.51); Lymphocyte % 13.6 % (19-41); Mean Corp Hgb Conc 32.3 g/dL (32-36); Mean Corpuscular Hgb 28.7 pg (27.0-32.0); Mean Corpuscular Volume 88.7 fL (81-99); Monocyte# 0.31 X10^3/uL; Monocyte% 3.1 % (0-10); NRBC Flagged by Analyzer 0.3 % (0-5); Neutrophil # 8.12 X10^3/uL (2.7-7.7); Neutrophil % 82.2 % (47-70); Platelet Count 174 K/mm3 (150-450); RBC Distribution Width CV 18.3 % (11.6-14.6); RBC Distribution Width SD 56.7 fl (35.1-43.9); White Blood Count 9.9 K/mm3 (4.4-11.0)
[2024-05-28 04:50] LABS: International Normalized Ratio 1.2; Prothrombin Time (Protime)PT. 15.7 SECONDS (11.7-14.9)
[2024-05-28 04:56] LABS: AST(SGOT) 14 U/L (15-37); Alanine Aminotransfer ALT/SGPT 15 U/L (13-56); Albumin, Serum 2.8 g/dL (3.2-5.0); Alkaline Phosphatase 71 U/L (45-117); Anion Gap 3 (5-15); BUN 18 mg/dL (7-18); BUN/Creat Ratio 20.8 RATIO (10-20); Calcium,Total 8.4 mg/dL (8.5-10.1); Chloride 106 mmol/L (98-107); Creatinine, Serum 0.86 mg/dL (0.55-1.02); EST Glomerular Filtration Rate 66 mL/min (>60); Est Glom Filt Rate - Afr Amer 80 mL/min (>60); Estimated Creatinine Clearance 47.31 ml/min; Globulin 2.8 g/dL (2.2-4.2); Glucose 345 mg/dL (74-106); Potassium 4.1 mmol/L (3.5-5.1); Protein, Total 5.6 g/dL (6.4-8.2); Sodium Level 138 mmol/L (136-145)
[2024-05-28] MEDS: Pantoprazole Sodium 80 MG in 0.9% Normal Saline (100mL Bag) 80 ML 10 MG CONT INF (06:23)
[2024-05-28 07:55] LABS: Hemoglobin A1c 5.5 % (3.8-5.6)
--- NOTE | 2024-05-28 07:56 | PCM.POSTANE2 ---
Anesthesia Postop Eval I Sum Postop Eval Completion status Anesthesia document: Postop Eval 1 completed: Yes Anesthesia Postop Eval I Summary Anesthesia Postop Eval I Summary: Anesthesia Postop Eval I: Assessment Summary Airway patent Yes 05/27/24 18:07 [email or web address] Spontaneous unlabored Yes 05/27/24 18:07 [email or web address] respirations Mental status Awake 05/27/24 18:07 [email or web address] nausea No 05/27/24 18:07 [email or web address] Vomiting No 05/27/24 18:07 [email or web address] Anesthesia Postop Eval I: Fluid Summary Crystalloid volume administer 30 05/27/24 18:07 [email or web address] (ml) Colloids volume administered ( ml) Blood Product volume administered (ml) Total IV fluid infused 30 05/27/24 18:07 [email or web address] Anesthesia Postop Eval I: Summary Notes Anesthesia Complication No 05/27/24 18:07 [email or web address] Anesthesia Complication Comment: Post-operative progress note Anesthesia: Postop Eval II Evaluation Mental status: Awake Pain Level: 0 nausea: No Vomiting: No
[2024-05-28 08:03] LABS: Hematocrit 27.2 % (37-47); Hemoglobin 8.9 g/dL (12.0-15.0)
[2024-05-28] MEDS: Acetaminophen 325 MG Tablet 650 MG PO ×2 (09:32→23:58)
[2024-05-28] MEDS: guaiFENesin 1,200 MG Tablet 1200 MG PO (09:32)
[2024-05-28] MEDS: Ensure Plus High Protein 120 ML LIQUID PO ×2 (09:32→13:47)
[2024-05-28] MEDS: Flecainide 100 MG Tablet 25 MG PO ×2 (09:33→21:33)
[2024-05-28] MEDS: Metoprolol Tartrate 25 MG Tablet 12.5 MG PO ×2 (09:33→21:31)
--- NOTE | 2024-05-28 10:31 | PCM.PN.HOSP ---
Reason for Visit Reason for Visit: Diagnoses Acute posthemorrhagic anemia (05/27/24) Subjective Subjective Patient is an 88-year-old lady with history of paroxysmal atrial fibrillation on systemic anticoagulation with warfarin presented to the emergency department with progressive generalized weakness. Patient was found to have a hemoglobin of 6.2. Admitted to monitored bed with consultation placed to GI Objective Data Objective Data Vital Signs: Vital Signs Temp Pulse Resp BP Pulse Ox O2 Del Method 97.6 F L 87 18 129/54 H 100 Room Air 05/28/24 09:30 05/28/24 09:33 05/28/24 09:30 05/28/24 09:30 05/28/24 09:30 05/28/24 09:30 Oxygen Delivery Method Room Air Weight: 73.6 kg Body Mass Index (BMI) 26.2 Intake & Output: Intake and Output for Last 24 Hours 05/26/24 05/27/24 05/28/24 23:59 23:59 23:59 Intake Total 1205.5 / 1205.5 490.17 / 490.17 Balance 1205.5 / 1205.5 490.17 / 490.17 Lab / Micro Data 05/28/24 11:40 05/28/24 04:00 Labs: Laboratory Results - last 24 hr 05/27/24 12:50: WBC 12.1 H, RBC 2.18 L, Hgb 6.2 L, Hct 20.9 L, MCV 95.9, MCH 28.4, MCHC 29.7 L, RDW Std Deviation 64.2 H, RDW Coeff of Rodolfo 19.0 H, Plt Count 229, MPV 10.8, Immature Gran % (Auto) 0.700, Neut % (Auto) 77.4 H, Lymph % (Auto) 15.3 L, [place] % (Auto) 5.4, Eos % (Auto) 1.0, Baso % (Auto) 0.2, Absolute Neuts (auto) 9.4 H, Absolute Lymphs (auto) 1.85, Nucleated RBC % 0.2, PT 27.4 H, INR 2.5, Sodium 139, Potassium 3.8, Chloride 107, Carbon Dioxide 30.0, Anion Gap 2 L, BUN 31 H, Creatinine 0.83, Estim Creat Clear Calc 48.84, Est GFR (MDRD) Af Amer 84, Est GFR (MDRD) Non-Af 69, BUN/Creatinine Ratio 37.4 H, Glucose 217 H, Calcium 8.7, Magnesium 2.0, Blood Type B POSITIVE, Antibody Screen NEGATIVE, Crossmatch See Detail 05/27/24 15:13: PT 25.9 H, INR 2.3 05/27/24 23:53: Hgb 9.6 L, Hct 29.5 L 05/28/24 04:00: WBC 9.9, RBC 3.00 L, Hgb 8.6 L, Hct 26.6 L, MCV 88.7 D, MCH 28.7, MCHC 32.3 D, RDW Std Deviation 56.7 H, RDW Coeff of Rodolfo 18.3 H, Plt Count 174, MPV 11.0, Immature Gran % (Auto) 1.000 H, Neut % (Auto) 82.2 H, Lymph % (Auto) 13.6 L, [place] % (Auto) 3.1, Eos % (Auto) 0.0, Baso % (Auto) 0.1, Absolute Neuts (auto) 8.1 H, Absolute Lymphs (auto) 1.34, Nucleated RBC % 0.3, PT 15.7 H, INR 1.2, Sodium 138, Potassium 4.1, Chloride 106, Carbon Dioxide 29.0, Anion Gap 3 L, BUN 18, Creatinine 0.86, Estim Creat Clear Calc 47.31, Est GFR (MDRD) Af Amer 80, Est GFR (MDRD) Non-Af 66, BUN/Creatinine Ratio 20.8 H, Glucose 345 H, Hemoglobin A1c 5.5, Calcium 8.4 L, Total Bilirubin 0.60, AST 14 L, ALT 15, Alkaline Phosphatase 71, Total Protein 5.6 L, Albumin 2.8 L, Globulin 2.8, Albumin/Globulin Ratio 1.0 05/28/24 07:49: Hgb 8.9 L, Hct 27.2 L Physical Exam Narrative GENERAL: cooperative HEENT: Atraumatic; normocephalic EYES; Anicteric, Normal Conjunctiva NECK; supple, normal thyroid, RESPIRATORY: Diminished to auscultation CARDIOVASCULAR: Regular S1 S2, GI: soft, normoactive bowel sounds, : No Renal angle tenderness; EXTREMITIES: No edema, no clubbing, MUSCULOSKELETAL: no muscle wasting NEURO: Awake; no lateralizing signs. SKIN: No Rash PSYCH; Flat affect Assessment & Plan Assessment/Plan (1) Anemia due to blood loss, acute: PLAN: Plan Patient is an 88-year-old lady with history of paroxysmal atrial fibrillation on systemic anticoagulation with warfarin presented to the emergency department with progressive generalized weakness. Patient was found to have a hemoglobin of 6.2. Admitted to monitored bed with consultation placed to GI 1. Acute upper GI bleed ? Secondary to gastric ulcers exacerbated by the use of systemic anticoagulation with warfarin. Patient was admitted to regular nursing floor transfused 2 unit PRBC started on Protonix consult placed to GI patient underwent EGD by Dr. Arthur the day prior findings and procedures performed as below -Low-grade of narrowing Schatzki ring. Treated with argon plasma coagulation (APC). - Large hiatal hernia. - Oozing gastric ulcers with pigmented material. Treated with argon beam coagulation. - No gross lesions in the first portion of the duodenum. GI recommended the use of Protonix 40 mg twice daily 2. Anemia ? Secondary to acute blood loss anemia as stated above. Patient did receive transfusion with 2 unit PRBC and underwent EGD with intervention as described above. Subsequently monitoring H&H and transfuse if patient becomes symptomatic or hemoglobin falls below 7 3. Paroxysmal atrial fibrillation ? Rate controlled on metoprolol and flecainide patient is on systemic anticoagulation with Coumadin held given patient presented 4. Dyslipidemia ?Patient is on statin therapy, continued at home dose 5. Hyperglycemia ? Patient does not have any history of diabetes her glucose levels on admission was 217 glucose level this a.m. was 345.. Patient hemoglobin A1c was however 5.5 6. History of subdural hematoma with subarachnoid hemorrhage ? Patient was transferred to tertiary care center for bur holes this uncared in March 2020 has since remained stable 7.Decision lung disease ? Remains stable aerosol treatment as needed patient is followed by Dr. Lowery with pulmonary medicine Patient 8. DVT prophylaxis ? Chemoprophylaxis contraindicated given patient presentation Time spent in the patient's overall evaluation,decision-making process, review of diagnostic data, adjustment of management, discussion with other providers, nursing nursing and ancillary staff involved in patient's care documentation, 50 Minutes Charges/Coding Visit Charges Inpatient E&M: 779[address] [facility] L3
[2024-05-28 11:46] LABS: Hematocrit 27.7 % (37-47); Hemoglobin 9.1 g/dL (12.0-15.0)
--- NOTE | 2024-05-28 14:32 | CASEMGMT ---
LIUDMILA ALEJANDRA Assessment: Face to Face with pt for initial transition planning/care coordination assessment. RN JUSTYN introduced self and role at [facility], pt voices understanding and consents to assessment. Pt is A&O x4 and answers all questions appropriately at this time. Pt sitting in bed in no distress. Pt S/O sitting at bedside. Care providers, pharmacy, and demographics verified/updated. Strata: 2 Admitting Dx: Abla, GI Bleed PCP: Scotty Specialists: hSaji, Guest Advisor; Sebastián Conservation Agent Preferred [facility]acy: [facility] Insurance: [employer] Prescription Benefit: yes LNOK: Son, Terry; Son, Toney Living Arrangements: Pt lives alone in a condo with no steps to enter. ADLs: Pt reports I at baseline Transportation: Pt drives self and denies concerns with transportation. DME: Pt has O2 through [employer], 2L HS only. HHC/SNF: Denies Hx of. Pt states no concerns with going home at time of dc. Pt states no further concerns/needs. CM to follow. Advised pt to ask CM if any further question/concerns/needs arise, voices understanding. Pt Goal: Home Plan: Home with family support. Pavan NUR CM
[2024-05-28] MEDS: MELATONIN 3 MG TABLET PO (21:31)
[2024-05-28] MEDS: Atorvastatin Calcium 20 MG Tablet PO (21:34)
[2024-05-28] MEDS: Pantoprazole Sodium 40 MG Tablet PO (21:36)
[2024-05-29] MEDS: Zolpidem Tartrate 5 MG Tablet PO (00:20)
[2024-05-29 00:23] VITALS: BP 138/60; PULSE 60; RESP 18; TEMP 36.3; O2SAT 99
[2024-05-29 05:20] VITALS: BMI 26.0
[2024-05-29 06:37] VITALS: BP 126/53; PULSE 57; RESP 18; TEMP 36.4; O2SAT 99
[2024-05-29 06:40] VITALS: O2SAT 94
[2024-05-29 07:56] LABS: Absolute Lymphocyte Count 3.18 X10^3/uL (0.83-4.51); Absolute Neutrophil Count 5.6 X10^3/uL (2.0-7.7); Basophil# 0.02 X10^3/uL; Basophil% 0.2 % (0-1); Eosinophil# 0.19 X10^3/uL; Hematocrit 28.7 % (37-47); Hemoglobin 9.1 g/dL (12.0-15.0); Lymphocyte # 3.18 X10^3/ul (0.83-4.51); Lymphocyte % 33.1 % (19-41); Mean Corp Hgb Conc 31.7 g/dL (32-36); Mean Corpuscular Hgb 28.9 pg (27.0-32.0); Mean Corpuscular Volume 91.1 fL (81-99); Mean Platelet Vol. 11.1 fl (6.2-12.0); Monocyte# 0.61 X10^3/uL; Monocyte% 6.3 % (0-10); NRBC Flagged by Analyzer 0.2 % (0-5); Neutrophil # 5.56 X10^3/uL (2.7-7.7); Neutrophil % 57.9 % (47-70); Platelet Count 171 K/mm3 (150-450); RBC Distribution Width CV 18.9 % (11.6-14.6); RBC Distribution Width SD 60.7 fl (35.1-43.9); Red Blood Count 3.15 M/mm3 (4.2-5.4); White Blood Count 9.6 K/mm3 (4.4-11.0)
--- NOTE | 2024-05-29 08:03 | PN.HOSP_ITS ---
Reason for Visit Reason for Visit: Diagnoses Acute posthemorrhagic anemia (05/27/24) Subjective Subjective In H&H did remain stable plans for patient to be discharged home on PPI Objective Data Objective Data Vital Signs: Vital Signs Temp Pulse Resp BP Pulse Ox O2 Del Method 97.5 F L 57 L 18 126/53 H 99 Room Air 05/29/24 06:37 05/29/24 06:37 05/29/24 06:37 05/29/24 06:37 05/29/24 06:37 05/29/24 06:37 Oxygen Delivery Method Room Air Weight: 73.2 kg Body Mass Index (BMI) 26.0 Intake & Output: Intake and Output for Last 24 Hours 05/27/24 05/28/24 05/29/24 23:59 23:59 23:59 Intake Total 1205.5 / 1205.5 1547.34 / 1547.34 Output Total 0 / 0 Balance 1205.5 / 1205.5 1547.34 / 1547.34 0 / 0 Lab / Micro Data 05/29/24 07:21 05/29/24 07:21 Labs: Laboratory Results - last 24 hr 05/28/24 07:49: Hgb 8.9 L, Hct 27.2 L 05/28/24 11:40: Hgb 9.1 L, Hct 27.7 L 05/29/24 07:21: WBC 9.6, RBC 3.15 L, Hgb 9.1 L, Hct 28.7 L, MCV 91.1, MCH 28.9, MCHC 31.7 L, RDW Std Deviation 60.7 H, RDW Coeff of Rodolfo 18.9 H, Plt Count 171, MPV 11.1, Immature Gran % (Auto) 0.500, Neut % (Auto) 57.9, Lymph % (Auto) 33.1, [place] % (Auto) 6.3, Eos % (Auto) 2.0, Baso % (Auto) 0.2, Absolute Neuts (auto) 5.6, Absolute Lymphs (auto) 3.18, Nucleated RBC % 0.2 Physical Exam Narrative GENERAL: cooperative HEENT: Atraumatic; normocephalic EYES; Anicteric, Normal Conjunctiva NECK; supple, normal thyroid, RESPIRATORY: Diminished to auscultation CARDIOVASCULAR: Regular S1 S2, GI: soft, normoactive bowel sounds, : No Renal angle tenderness; EXTREMITIES: No edema, no clubbing, MUSCULOSKELETAL: no muscle wasting NEURO: Awake; no lateralizing signs. SKIN: No Rash PSYCH; Flat affect Assessment & Plan Assessment/Plan (1) Anemia due to blood loss, acute: PLAN: Plan Patient is an 88-year-old lady with history of paroxysmal atrial fibrillation on systemic anticoagulation with warfarin presented to the emergency department with progressive generalized weakness. Patient was found to have a hemoglobin of 6.2. Admitted to monitored bed with consultation placed to GI 1. Acute upper GI bleed ? Secondary to gastric ulcers exacerbated by the use of systemic anticoagulation with warfarin. Patient was admitted to regular nursing floor transfused 2 unit PRBC started on Protonix consult placed to GI patient underwent EGD by Dr. Arthur the day prior findings and procedures performed as below -Low-grade of narrowing Schatzki ring. Treated with argon plasma coagulation (APC). - Large hiatal hernia. - Oozing gastric ulcers with pigmented material. Treated with argon beam coagulation. - No gross lesions in the first portion of the duodenum. GI recommended the use of Protonix 40 mg twice daily 2. Anemia ? Secondary to acute blood loss anemia as stated above. Patient did receive transfusion with 2 unit PRBC and underwent EGD with intervention as described above. Subsequently monitoring H&H and transfuse if patient becomes symptomatic or hemoglobin falls below 7 3. Paroxysmal atrial fibrillation ? Rate controlled on metoprolol and flecainide patient is on systemic anticoagulation with Coumadin held given patient presented 4. Dyslipidemia ?Patient is on statin therapy, continued at home dose 5. Hyperglycemia ? Patient does not have any history of diabetes her glucose levels on admission was 217 glucose level this a.m. was 345.. Patient hemoglobin A1c was however 5.5 6. History of subdural hematoma with subarachnoid hemorrhage ? Patient was transferred to tertiary care [place] for bur holes this uncared in March 2020 has since remained stable 7.Decision lung disease ? Remains stable aerosol treatment as needed patient is followed by Dr. Lowery with pulmonary medicine Patient 8. DVT prophylaxis ? Chemoprophylaxis contraindicated given patient presentation Time spent in the patient's overall evaluation,decision-making process, review of diagnostic data, adjustment of management, discussion with other providers, nursing nursing and ancillary staff involved in patient's care documentation, 35 minutes
[2024-05-29 08:26] LABS: Anion Gap 7 (5-15); BUN 20 mg/dL (7-18); BUN/Creat Ratio 25.3 RATIO (10-20); Calcium,Total 8.5 mg/dL (8.5-10.1); Chloride 107 mmol/L (98-107); Creatinine, Serum 0.79 mg/dL (0.55-1.02); EST Glomerular Filtration Rate 73 mL/min (>60); Est Glom Filt Rate - Afr Amer 89 mL/min (>60); Estimated Creatinine Clearance 50.73 ml/min; Glucose 170 mg/dL (74-106); Magnesium 1.9 mg/dL (1.6-2.6); Phosphorus 3.7 mg/dL (2.5-4.9); Potassium 3.7 mmol/L (3.5-5.1); Sodium Level 142 mmol/L (136-145)
[2024-05-29] MEDS: Flecainide 100 MG Tablet 25 MG PO (09:11)
[2024-05-29 09:12] VITALS: PULSE 60
[2024-05-29] MEDS: Metoprolol Tartrate 25 MG Tablet 12.5 MG PO (09:12)
[2024-05-29] MEDS: Pantoprazole Sodium 40 MG Tablet PO (09:13)
[2024-05-29] MEDS: guaiFENesin 1,200 MG Tablet 1200 MG PO (09:13)
[2024-05-29 10:00] VITALS: BP 142/60; PULSE 60; RESP 15; TEMP 36.6; O2SAT 98
--- NOTE | 2024-05-29 11:49 | DS.PCM_ITS ---
Providers Date of Admission: 05/27/24 Date of Discharge: 05/29/24 Primary Care Physician: Dr. Larry Fajardo, DO Consultations 05/27/24 14:50 Consult: Gastroenterology Routine Consulting Provider: [facility] Reason for Consult: ABLA, GI bleed EMERGENT Consult: No MD Notified: Yes Date Notified: 05/27/24 Time Notified: 14:51 Method of Notification: ED Physician Initiated Reason For Visit: ABLA, GI BLEED Diagnosis Discharge Diagnosis (1) Anemia due to blood loss, acute: Status: Acute Code(s): D62 - Acute posthemorrhagic anemia Plan Patient is an 88-year-old lady with history of paroxysmal atrial fibrillation on systemic anticoagulation with warfarin presented to the emergency department with progressive generalized weakness. Patient was found to have a hemoglobin of 6.2. Admitted to monitored bed with consultation placed to GI 1. Acute upper GI bleed ? Secondary to gastric ulcers exacerbated by the use of systemic anticoagulation with warfarin. Patient was admitted to regular nursing floor transfused 2 unit PRBC started on Protonix consult placed to GI patient underwent EGD by Dr. Arthur the day prior findings and procedures performed as below -Low-grade of narrowing Schatzki ring. Treated with argon plasma coagulation (APC). - Large hiatal hernia. - Oozing gastric ulcers with pigmented material. Treated with argon beam coagulation. - No gross lesions in the first portion of the duodenum. GI recommended the use of Protonix 40 mg twice daily 2. Anemia ? Secondary to acute blood loss anemia as stated above. Patient did receive transfusion with 2 unit PRBC and underwent EGD with intervention as described above. Subsequently monitoring H&H and transfuse if patient becomes symptomatic or hemoglobin falls below 7 3. Paroxysmal atrial fibrillation ? Rate controlled on metoprolol and flecainide patient is on systemic anticoagulation with Coumadin held given patient presented 4. Dyslipidemia ?Patient is on statin therapy, continued at home dose 5. Hyperglycemia ? Patient does not have any history of diabetes her glucose levels on admission was 217 glucose level this a.m. was 345.. Patient hemoglobin A1c was however 5.5 6. History of subdural hematoma with subarachnoid hemorrhage ? Patient was transferred to [facility] for bur holes this uncared in March 2020 has since remained stable 7.Decision lung disease ? Remains stable aerosol treatment as needed patient is followed by Dr. Lowery with pulmonary medicine Patient 8. DVT prophylaxis ? Chemoprophylaxis contraindicated given patient presentation Time spent in the patient's overall evaluation,decision-making process, review of diagnostic data, adjustment of management, discussion with other providers, nursing nursing and ancillary staff involved in patient's care documentation, 35 minutes Medications at Discharge Home Medications metoprolol tartrate 25 mg tablet 12.5 mg PO BID 05/28/19 zolpidem 5 mg tablet (Ambien) 5 mg PO QHS PRN Sleep 05/28/19 cholecalciferol (vitamin D3) 25 mcg (1,000 unit) capsule 25 mcg PO DAILY 12/02/20 magnesium oxide 400 mg (241.3 mg magnesium) tablet 400 mg PO DAILY 06/04/21 warfarin 5 mg tablet 5 mg PO DAILY 06/04/21 mecobalamin (vitamin B12) 1,000 mcg chewable tablet 1,000 mcg PO DAILY 08/29/22 atorvastatin 20 mg tablet 20 mg PO QHS #90 tabs 08/28/23 flecainide 50 mg tablet 25 mg (1/2 x 50 mg) PO Q12H #90 tabs 03/11/24 benzonatate 100 mg capsule 100 mg PO TID PRN cough 05/27/24 furosemide 20 mg tablet 10 - 20 mg PO DAILY PRN swelling 05/27/24 guaifenesin 600 mg tablet, extended release 12 hr 1,200 mg PO BID 05/27/24 zinc gluconate 50 mg tablet 50 mg PO DAILY 05/27/24 pantoprazole 40 mg tablet,delayed release 40 mg PO BID #120 tabs 05/29/24 Physical Exam Narrative GENERAL: cooperative HEENT: Atraumatic; normocephalic EYES; Anicteric, Normal Conjunctiva NECK; supple, normal thyroid, RESPIRATORY: Diminished to auscultation CARDIOVASCULAR: Regular S1 S2, GI: soft, normoactive bowel sounds, : No Renal angle tenderness; EXTREMITIES: No edema, no clubbing, MUSCULOSKELETAL: no muscle wasting NEURO: Awake; no lateralizing signs. SKIN: No Rash PSYCH; Flat affect Weight / BMI Weight Weight: 73.2 kg Body Mass Index (BMI) 26.0 ABG / Lab / Microbiology Data 05/29/24 07:21 05/29/24 07:21 Laboratory: Laboratory Results - last 24 hr 05/29/24 07:21: WBC 9.6, RBC 3.15 L, Hgb 9.1 L, Hct 28.7 L, MCV 91.1, MCH 28.9, MCHC 31.7 L, RDW Std Deviation 60.7 H, RDW Coeff of Rodolfo 18.9 H, Plt Count 171, MPV 11.1, Immature Gran % (Auto) 0.500, Neut % (Auto) 57.9, Lymph % (Auto) 33.1, [place] % (Auto) 6.3, Eos % (Auto) 2.0, Baso % (Auto) 0.2, Absolute Neuts (auto) 5.6, Absolute Lymphs (auto) 3.18, Nucleated RBC % 0.2, Sodium 142, Potassium 3.7, Chloride 107, Carbon Dioxide 29.0, Anion Gap 7, BUN 20 H, Creatinine 0.79, Estim Creat Clear Calc 50.73, Est GFR (MDRD) Af Amer 89, Est GFR (MDRD) Non-Af 73, BUN/Creatinine Ratio 25.3 H, Glucose 170 H, Calcium 8.5, Phosphorus 3.7, Magnesium 1.9 D/C Instructions Discharge Diet: No restrictions Discharge Activity: Return to Normal Activity Call your doctor if you observe: Fever of 101 or Higher, Shortness of breath, Fainting spells and Chest pain DC O2, CPAP, BIPAP Needs Home O2 Discharge instructions: No Meaningful Use Info Meaningful Use Meaningful Use Diagnoses (Choose all that apply): None applicable Ischemic Stroke Statin Dosing Therapy Reference: STATIN DOSE THERAPY REFERENCE: * Patients > 75 years receive moderate or high dose statin therapy. * Patients 75 years or YOUNGER should receive HIGH intensity statin dose unless contraindicated. You will be required to document reason for non-treatment if statin daily dose does not meet guidelines. HIGH DOSE STATIN THERAPY DAILY Atorvastatin > than or = to 40 mg Rosuvastatin > than or = to 20 mg Amlodipine + Atorvastatin > than or = to 2.5/40 mg Ezetimibe + Simvastatin 10/80 mg Simvastatin 80mg Discharge Plan Admission Admit Date/Time: 05/27/24 13:52 Attending Provider: Florian Cazares Primary Care Provider: Larry Fajardo Consulting Providers: Chanel Anne Discharge Orders/Prescriptions Prescriptions: New pantoprazole 40 mg Tablet,Delayed Release (Dr/Ec) 40 mg PO BID Qty: 120 0RF Continued zolpidem [Ambien] 5 mg tablet 5 mg PO QHS PRN (Reason: Sleep) metoprolol tartrate 25 mg tablet 12.5 mg PO BID cholecalciferol (vitamin D3) 25 mcg (1,000 unit) capsule 25 mcg PO DAILY magnesium oxide 400 mg (241.3 mg magnesium) tablet 400 mg PO DAILY mecobalamin (vitamin B12) 1,000 mcg tablet,chewable 1,000 mcg PO DAILY atorvastatin 20 mg tablet 20 mg PO QHS Qty: 90 3RF furosemide 20 mg tablet 10 - 20 mg PO DAILY PRN (Reason: swelling) guaifenesin 600 mg tablet extended release 12hr 1,200 mg PO BID benzonatate 100 mg capsule 100 mg PO TID PRN (Reason: cough) zinc gluconate 50 mg tablet 50 mg PO DAILY flecainide 50 mg tablet 25 mg PO Q12H Qty: 90 3RF Held warfarin 5 mg tablet 5 mg PO DAILY Hold Instructions: Resume on 06/05/24. Discontinued prednisone 10 mg tablet 10 mg PO DAILY Patient Comments: pt took last day of prednisone taper this morning (05/27/24) Referrals / Follow Up: Larry Fajardo DO [Primary Care Provider] - Disposition Disposition (needs filled in before D/C Order can be placed): Home, Self Care Charges/Coding Visit Charges Inpatient E&M: 84934 Disch Hosp >30min
[2024-05-29 12:23] VITALS: BP 147/56; PULSE 58; RESP 17; TEMP 36.6; O2SAT 97
--- NOTE | 2024-05-29 13:10 | CASEMGMT ---
Patient has order for discharge. RN CM in to discuss needs at discharge. Patient denies needs or help at discharge. Patient had no further questions or concerns. Patient to discharge home with family support and follow-up plans in place.
--- NOTE | 2024-05-29 14:01 | PHA.DC.MC.R ---
Pharmacy [facility] has performed discharge medication reconciliation and counseling for this patient. 1. PANTOPRAZOLE 40MG PO BID 2. HOLD WARFARIN UNTIL 06/05 The patient's discharge medication list was reviewed for discrepancies and discrepancies were resolved. The patient was counseled on the following discharge medications and changes in medications for homegoing were reviewed. The Reason for Use, instructions for use, and potential side effects were reviewed for all new medications. The patient's questions regarding all of their medications were answered. The patient was able to verbally demonstrate an understanding of their discharge medications. Medications at Discharge Home Medications metoprolol tartrate 25 mg tablet 12.5 mg PO BID 05/28/19 zolpidem 5 mg tablet (Ambien) 5 mg PO QHS PRN Sleep 05/28/19 cholecalciferol (vitamin D3) 25 mcg (1,000 unit) capsule 25 mcg PO DAILY 12/02/20 magnesium oxide 400 mg (241.3 mg magnesium) tablet 400 mg PO DAILY 06/04/21 warfarin 5 mg tablet 5 mg PO DAILY 06/04/21 mecobalamin (vitamin B12) 1,000 mcg chewable tablet 1,000 mcg PO DAILY 08/29/22 atorvastatin 20 mg tablet 20 mg PO QHS #90 tabs 08/28/23 flecainide 50 mg tablet 25 mg (1/2 x 50 mg) PO Q12H #90 tabs 03/11/24 benzonatate 100 mg capsule 100 mg PO TID PRN cough 05/27/24 furosemide 20 mg tablet 10 - 20 mg PO DAILY PRN swelling 05/27/24 guaifenesin 600 mg tablet, extended release 12 hr 1,200 mg PO BID 05/27/24 zinc gluconate 50 mg tablet 50 mg PO DAILY 05/27/24 pantoprazole 40 mg tablet,delayed release 40 mg PO BID #120 tabs 05/29/24
== END 2024-05-29 13:40 | disposition home or self-care (01) | DRG 378 ==
LOC: ED 14:11 → PCU 14:13
PROVIDERS: Internal Medicine Gastroenterology; Admitting Provider Family Medicine; Emergency Provider Emergency Medicine; PCP Student in an Organized Health Care Education/Training Program; Referring Provider Emergency Medicine; Visit Provider Internal Medicine
PROC: 0DJ08ZZ Inspection of Upper Intestinal Tract, Via Natural or Artificial Opening Endoscopic (ICD-10-PCS; CPT 43235; principal; 2024-05-27 16:40)
DX: K25.4 Chronic or unspecified gastric ulcer with hemorrhage (principal); D62 Acute posthemorrhagic anemia; D68.32 Hemorrhagic disorder due to extrinsic circulating anticoagulants; J84.9 Interstitial pulmonary disease, unspecified; J96.11 Chronic respiratory failure with hypoxia; I48.0 Paroxysmal atrial fibrillation; K22.2 Esophageal obstruction; K44.9 Diaphragmatic hernia without obstruction or gangrene; N18.2 Chronic kidney disease, stage 2 (mild); E78.00 Pure hypercholesterolemia, unspecified; R73.9 Hyperglycemia, unspecified; Z79.01 Long term (current) use of anticoagulants; Z79.899 Other long term (current) drug therapy; Z86.16 Personal history of COVID-19; Z99.81 Dependence on supplemental oxygen
CPT/HCPCS: 36415; 80048; 80053; 83036; 83735; 84100; 85014; 85018; 85025; 85610; 86850; 86900; 86901; 93005; 94668; 97802; 99252; 99285; P9016; A4216; G0463; J2405; P9017